=== PATIENT | female | born 1950 | race Caucasian/White ===

== ENCOUNTER → 2016-10-27 | Outpatient (CLI) | payer MEDICARE, OTHER ==
[~2016-10-27] MED LIST: ALLEGRA 60MG TA60 MG PO; ALLEGRA PO; ALLEGRA-D 12 HO1 TER PO; AMOXICILLIN/CLA1 TA1 PO; B-12 500 MCG PO; BENADRYL 50MG C50 MG PO; BENADRYL25 M2 PO; CALCIUM 600600 MG PO; CALCIUM PO; CALTRATE-600 W600 MG PO; CIPRO 100MG TA100 MG PO; CIPRO 500MG TA500 MG PO; CLEOCIN HCL300 MG PO; CLINORIL 1150 MG/TAB PO; COLESTID5 GM/PACKE PO; CYMBALTA; CYMBALTA 30MG30 MG PO; DILAUDID 2MG TAB2 MG PO; FERRIMIN 150150 M1 PO; FLAGYL500 MG PO; FOLIC ACID800 MCG PO; GAS RELIEF EXT125 MG PO; GAS RELIEF PO; IMODIUM 2MG CAPS2 MG PO; IRON CHELATED325 MG PO; IRON325 MG PO; LEVAQUIN 5500 MG/TA1 PO; LOMOTIL 0.025 M1 TAB PO; LORTAB 5/500 501 TAB PO; LOVENOX 100100 MG/ML SQ; LOVENOX 6060 MG/0.6 SQ; LUTEIN20 M1 PO; LUTEIN20 MG; LUTEIN20 MG PO; MORP4 IL; MORPHINE; MORPHINE PUMP; MULTI VITAMINS1 TAB PO; NORCO 325 MG-101 TAB PO; NORCO 325 MG-51 TAB PO; OPIUM 10 MG/ML; OPIUM 10 MG/ML PO; OSCAL 500 TAB500 MG PO; PHILLIPS1 TAB PO; PROBIOTIC FORMU1 CAP PO; PROBIOTIC-MAJOR PO; PROTONIX 40MG T40 MG PO; QUESTRAN4 GM/9 GM PO; REGLAN 10MG10 MG/TAB PO; REGLAN 5MG T5 MG/TAB PO; TAMOXIFEN CITRA20 MG PO; TPN IV; VICODIN 5/5001 UDTAB PO; VITAMINC1000TA PO; XARELTO15 MG PO; XELODA500 MG PO; XYZAL5 MG PO; ZANTAC 150MG T150 MG PO; ZOFRAN 4MG T4 MG/TAB PO; ZOFRAN INJ4 MG/2 ML IV; ZYRTEC 10MG10 MG PO; ZYRTEC ALLERGY10 MG PO; [UNRECOGNIZED DRUG - SUPPLY]; calcium PO
[2016-10-27 20:59] LABS: MEAN CELL VOLUME 88 fl (80.0-100.0); MEAN CORPUSCULAR HGB CONC 30 g/dl (33.0-37.0); MEAN PLATELET VOLUME 10.3 fl (7.4-10.4); PLATELET COUNT 707 K/mm3 (130-400); RED BLOOD COUNT 3.22 M/mm3 (4.10-5.30); REDCELL DISTRIBUTION WIDTH-CV 17.6 % (11.5-14.5); WHITE BLOOD COUNT 8.4 K/mm3 (4.8-10.8)
[2016-10-27 21:04] LABS: HEMATOCRIT 28.2 % (37.0-47.0); HEMOGLOBIN 8.5 g/dl (12.5-16.0); MEAN CORPUSCULAR HEMOGLOBIN 26 pg (27.0-31.0)
[2016-10-27 21:07] LABS: ADJUSTED CALCIUM 9.4 mg/dL (8.4-10.2); ALBUMIN 2.6 gm/dL (3.5-5.0); BILIRUBIN,TOTAL 0.4 mg/dL (0.0-1.0); CALCIUM 8.3 mg/dL (8.4-10.2); CREATININE, serum 0.45 mg/dL (0.52-1.25); POTASSIUM 4.4 mmol/L (3.4-5.0); TOTAL PROTEIN 6.2 gm/dL (6.4-8.2)
[2016-10-27 21:47] LABS: MAGNESIUM 1.9 mg/dL (1.6-2.3)
== END ==
LOC: ZCOL.LAB 19:16
PROVIDERS: Surgery Surgical Oncology
DX: C78.6 Secondary malignant neoplasm of retroperitoneum and peritoneum (principal); K91.2 Postsurgical malabsorption, not elsewhere classified; Z51.81 Encounter for therapeutic drug level monitoring; Z79.01 Long term (current) use of anticoagulants; Z91.81 History of falling

== ENCOUNTER → 2016-10-30 | Outpatient (REF) | LOC: ZAIV 10-23 06:20 | DX: Z02.89 Encounter for other administrative examinations (principal) ==

== ENCOUNTER 2016-11-01 12:10 | Inpatient (IN) | payer MEDICARE, OTHER ==
[~2016-11-01] VITALS: Ht 167.6 cm; Wt 64.0 kg
[~2016-11-01 12:10] MED LIST changes: -CIPRO 500MG TA500 MG PO; -MORP4 IL; -OSCAL 500 TAB500 MG PO
[2016-11-01] MEDS ORDERED: IMODIUM 2MG CAPS2 MG PO (12:36)
[2016-11-01 12:49] LABS: BASO # 0.1 (0.0-0.2); BASO % 0.8 % (0.0-2.0); EOS # 0.1 (0.0-0.7); EOS % 1.2 % (0-4.0); GRAN # 5.5 (1.4-6.5); GRAN % 61.6 % (42.2-75.2); HEMATOCRIT 28.9 % (37.0-47.0); HEMOGLOBIN 9.1 g/dl (12.5-16.0); LYMPH # 2.2 (1.2-3.4); LYMPH % 25.1 % (20.0-51.0); MEAN CELL VOLUME 84 fl (80.0-100.0); MEAN CORPUSCULAR HEMOGLOBIN 26 pg (27.0-31.0); MEAN CORPUSCULAR HGB CONC 32 g/dl (33.0-37.0); MEAN PLATELET VOLUME 9.5 fl (7.4-10.4); MONO % 11.2 % (1.7-9.3); PLATELET COUNT 878 K/mm3 (130-400); RED BLOOD COUNT 3.44 M/mm3 (4.10-5.30); REDCELL DISTRIBUTION WIDTH-CV 17.8 % (11.5-14.5); WHITE BLOOD COUNT 8.9 K/mm3 (4.8-10.8)
[2016-11-01 12:55] LABS: ADJUSTED CALCIUM 9.3 mg/dL (8.4-10.2); ALBUMIN 3.3 gm/dL (3.5-5.0); BILIRUBIN,TOTAL 0.4 mg/dL (0.0-1.0); C-REACTIVE PROTEIN 4.2 mg/dL (0.0-0.9); CALCIUM 8.7 mg/dL (8.4-10.2); CREATININE, serum 0.47 mg/dL (0.52-1.25); POTASSIUM 3.8 mmol/L (3.4-5.0); TOTAL PROTEIN 7.3 gm/dL (6.4-8.2)
[2016-11-01 15:21] VITALS: BP 101/46; PULSE 114; TEMP 98.9
[2016-11-01 16:18] VITALS: BP 120/51; PULSE 75; TEMP 97.9
[2016-11-01 19:11] VITALS: BP 124/55; PULSE 825; TEMP 98.5
[2016-11-01 22:56] VITALS: BP 124/60; PULSE 87; TEMP 98.8
[2016-11-02 04:22] VITALS: BP 127/65; PULSE 94; TEMP 98.8
[2016-11-02 06:50] LABS: BASO % 0.5 % (0.0-2.0); EOS # 0.1 (0.0-0.7); EOS % 1.9 % (0-4.0); GRAN # 3.6 (1.4-6.5); GRAN % 49.2 % (42.2-75.2); LYMPH # 2.5 (1.2-3.4); LYMPH % 33.7 % (20.0-51.0); MEAN CELL VOLUME 85 fl (80.0-100.0); MEAN CORPUSCULAR HGB CONC 31 g/dl (33.0-37.0); MEAN PLATELET VOLUME 9.5 fl (7.4-10.4); MONO # 1.1 (0.1-0.6); MONO % 14.6 % (1.7-9.3); RED BLOOD COUNT 2.98 M/mm3 (4.10-5.30); REDCELL DISTRIBUTION WIDTH-CV 17.6 % (11.5-14.5); WHITE BLOOD COUNT 7.4 K/mm3 (4.8-10.8)
[2016-11-02 07:00] LABS: HEMATOCRIT 25.4 % (37.0-47.0); HEMOGLOBIN 7.9 g/dl (12.5-16.0); MEAN CORPUSCULAR HEMOGLOBIN 27 pg (27.0-31.0)
[2016-11-02 07:01] LABS: PLATELET COUNT 766 K/mm3 (130-400)
[2016-11-02 07:04] LABS: ADJUSTED CALCIUM 8.9 mg/dL (8.4-10.2); ALBUMIN 2.4 gm/dL (3.5-5.0); BILIRUBIN,TOTAL 0.4 mg/dL (0.0-1.0); CALCIUM 7.6 mg/dL (8.4-10.2); CREATININE, serum 0.44 mg/dL (0.52-1.25); POTASSIUM 3.5 mmol/L (3.4-5.0); TOTAL PROTEIN 5.9 gm/dL (6.4-8.2)
[2016-11-02 07:41] VITALS: BP 122/57; PULSE 97; TEMP 99
[2016-11-02] MEDS ORDERED: MORP4 IL (11:59)
[2016-11-02 12:13] VITALS: BP 124/56; PULSE 79; TEMP 98.6
[2016-11-02 17:23] VITALS: BP 129/59; PULSE 73; TEMP 98.6
[2016-11-02 19:43] VITALS: BP 127/64; PULSE 50; TEMP 98.2
[2016-11-02 23:11] VITALS: BP 129/50; PULSE 78; TEMP 98.7
[2016-11-03 02:25] VITALS: BP 132/47; PULSE 81; TEMP 100.4
[2016-11-03 07:11] LABS: BASO % 0.5 % (0.0-2.0); EOS # 0.2 (0.0-0.7); EOS % 2.4 % (0-4.0); GRAN # 3.5 (1.4-6.5); GRAN % 47.2 % (42.2-75.2); LYMPH # 2.6 (1.2-3.4); LYMPH % 34.5 % (20.0-51.0); MEAN CELL VOLUME 84 fl (80.0-100.0); MEAN CORPUSCULAR HGB CONC 31 g/dl (33.0-37.0); MEAN PLATELET VOLUME 9.8 fl (7.4-10.4); MONO # 1.1 (0.1-0.6); MONO % 15.1 % (1.7-9.3); PLATELET COUNT 796 K/mm3 (130-400); RED BLOOD COUNT 3.21 M/mm3 (4.10-5.30); REDCELL DISTRIBUTION WIDTH-CV 17.7 % (11.5-14.5); WHITE BLOOD COUNT 7.5 K/mm3 (4.8-10.8)
[2016-11-03 07:19] LABS: HEMOGLOBIN 8.4 g/dl (12.5-16.0); MEAN CORPUSCULAR HEMOGLOBIN 26 pg (27.0-31.0)
[2016-11-03 07:26] LABS: ADJUSTED CALCIUM 9.2 mg/dL (8.4-10.2); ALBUMIN 2.8 gm/dL (3.5-5.0); BILIRUBIN,TOTAL 0.4 mg/dL (0.0-1.0); CALCIUM 8.2 mg/dL (8.4-10.2); CREATININE, serum 0.41 mg/dL (0.52-1.25); POTASSIUM 4.1 mmol/L (3.4-5.0); TOTAL PROTEIN 6.5 gm/dL (6.4-8.2)
[2016-11-03 07:45] VITALS: BP 122/52; PULSE 79; TEMP 98.6
[2016-11-03 12:00] VITALS: BP 131/60; PULSE 71; TEMP 98.3
[2016-11-03 15:55] VITALS: BP 135/66; PULSE 60; TEMP 97.9
[2016-11-03 19:20] VITALS: BP 129/57; PULSE 73; TEMP 98.4
[2016-11-03 23:34] VITALS: BP 147/72; PULSE 82; TEMP 98.2
[2016-11-04 03:27] VITALS: BP 156/70; PULSE 97; TEMP 98.1
[2016-11-04 07:14] LABS: BASO # 0.1 (0.0-0.2); BASO % 0.6 % (0.0-2.0); EOS # 0.3 (0.0-0.7); GRAN # 5.7 (1.4-6.5); LYMPH # 2.7 (1.2-3.4); MEAN CELL VOLUME 85 fl (80.0-100.0); MEAN CORPUSCULAR HGB CONC 32 g/dl (33.0-37.0); MEAN PLATELET VOLUME 9.9 fl (7.4-10.4); MONO # 1.1 (0.1-0.6); PLATELET COUNT 752 K/mm3 (130-400); RED BLOOD COUNT 3.22 M/mm3 (4.10-5.30); REDCELL DISTRIBUTION WIDTH-CV 18.1 % (11.5-14.5); WHITE BLOOD COUNT 9.9 K/mm3 (4.8-10.8)
[2016-11-04 07:15] LABS: HEMATOCRIT 27.3 % (37.0-47.0); HEMOGLOBIN 8.7 g/dl (12.5-16.0); MEAN CORPUSCULAR HEMOGLOBIN 27 pg (27.0-31.0)
[2016-11-04 07:27] LABS: ADJUSTED CALCIUM 9.2 mg/dL (8.4-10.2); ALBUMIN 2.8 gm/dL (3.5-5.0); BILIRUBIN,TOTAL 0.4 mg/dL (0.0-1.0); CALCIUM 8.2 mg/dL (8.4-10.2); CREATININE, serum 0.67 mg/dL (0.52-1.25); MAGNESIUM 2.6 mg/dL (1.6-2.3); POTASSIUM 4.5 mmol/L (3.4-5.0); TOTAL PROTEIN 6.2 gm/dL (6.4-8.2)
[2016-11-04 09:09] VITALS: BP 137/65; PULSE 81; TEMP 98.2
[2016-11-04 09:45] LABS: ADJUSTED CALCIUM 9.3 mg/dL (8.4-10.2); ALBUMIN 3.2 gm/dL (3.5-5.0); BILIRUBIN,TOTAL 0.4 mg/dL (0.0-1.0); CALCIUM 8.7 mg/dL (8.4-10.2); CREATININE, serum 0.43 mg/dL (0.52-1.25); POTASSIUM 4.4 mmol/L (3.4-5.0); TOTAL PROTEIN 7.5 gm/dL (6.4-8.2)
[2016-11-04 11:41] LABS: PHOSPHOROUS 2.6 mg/dL (2.5-4.5)
[2016-11-04 12:03] LABS: MAGNESIUM 2.1 mg/dL (1.6-2.3)
[2016-11-04 12:37] VITALS: BP 144/66; PULSE 79; TEMP 97.5
[2016-11-04 15:57] VITALS: BP 128/70; PULSE 81; TEMP 97.9
[2016-11-04 20:11] VITALS: BP 144/62; PULSE 75; TEMP 97.8
[2016-11-05] VITALS (7 sets, daily range): BP systolic 120–132; BP diastolic 47–67; PULSE 68–96; TEMP 97.3–98.3
[2016-11-05 09:11] LABS: BASO % 0.4 % (0.0-2.0); EOS # 0.2 (0.0-0.7); EOS % 2.5 % (0-4.0); GRAN # 3.7 (1.4-6.5); GRAN % 48.7 % (42.2-75.2); LYMPH # 2.7 (1.2-3.4); LYMPH % 35.4 % (20.0-51.0); MEAN CELL VOLUME 85 fl (80.0-100.0); MEAN CORPUSCULAR HGB CONC 31 g/dl (33.0-37.0); MEAN PLATELET VOLUME 9.4 fl (7.4-10.4); MONO % 12.9 % (1.7-9.3); PLATELET COUNT 797 K/mm3 (130-400); RED BLOOD COUNT 3.54 M/mm3 (4.10-5.30); REDCELL DISTRIBUTION WIDTH-CV 18.1 % (11.5-14.5); WHITE BLOOD COUNT 7.6 K/mm3 (4.8-10.8)
[2016-11-05 09:15] LABS: HEMOGLOBIN 9.3 g/dl (12.5-16.0); MEAN CORPUSCULAR HEMOGLOBIN 26 pg (27.0-31.0)
[2016-11-05 10:03] LABS: CALCIUM 8.6 mg/dL (8.4-10.2); CREATININE, serum 0.52 mg/dL (0.52-1.25); PHOSPHOROUS 4.1 mg/dL (2.5-4.5)
[2016-11-06 03:35] VITALS: BP 135/56; PULSE 93; TEMP 98.6
[2016-11-06 08:00] LABS: CALCIUM 8.6 mg/dL (8.4-10.2); CREATININE, serum 0.45 mg/dL (0.52-1.25); POTASSIUM 3.9 mmol/L (3.4-5.0)
[2016-11-06 11:21] VITALS: BP 134/79; PULSE 80; TEMP 98
[2016-11-06 17:07] VITALS: BP 131/66; PULSE 80; TEMP 98.2
[2016-11-06 20:55] VITALS: BP 131/59; PULSE 79; TEMP 97.4
[2016-11-06 23:34] VITALS: BP 126/53; BP 1326/53; PULSE 79; TEMP 97.8
[2016-11-07 03:23] VITALS: BP 122/41; PULSE 81; TEMP 98.9
[2016-11-07 07:49] LABS: MEAN CELL VOLUME 85 fl (80.0-100.0); MEAN CORPUSCULAR HGB CONC 31 g/dl (33.0-37.0); MEAN PLATELET VOLUME 9.8 fl (7.4-10.4); RED BLOOD COUNT 3.13 M/mm3 (4.10-5.30); WHITE BLOOD COUNT 10.6 K/mm3 (4.8-10.8)
[2016-11-07 07:50] LABS: HEMATOCRIT 26.7 % (37.0-47.0); HEMOGLOBIN 8.2 g/dl (12.5-16.0); MEAN CORPUSCULAR HEMOGLOBIN 26 pg (27.0-31.0); PLATELET COUNT 686 K/mm3 (130-400)
[2016-11-07 08:13] LABS: CALCIUM 8.5 mg/dL (8.4-10.2); CREATININE, serum 0.5 mg/dL (0.52-1.25); MAGNESIUM 2.1 mg/dL (1.6-2.3); POTASSIUM 3.8 mmol/L (3.4-5.0)
[2016-11-07 08:15] VITALS: BP 134/68; PULSE 90; TEMP 98.5
[2016-11-07 12:00] VITALS: BP 126/59; PULSE 73; TEMP 96.9
[2016-11-07 16:46] VITALS: BP 129/55; PULSE 72; TEMP 97.9
[2016-11-07 21:11] VITALS: BP 149/66; PULSE 76; TEMP 98.4
[2016-11-08 00:21] VITALS: BP 143/58; PULSE 98; TEMP 98.4
[2016-11-08 05:08] VITALS: BP 117/44; PULSE 82; TEMP 98.7
[2016-11-08 06:56] LABS: CREATININE, serum 0.49 mg/dL (0.52-1.25); MAGNESIUM 1.9 mg/dL (1.6-2.3); PHOSPHOROUS 2.9 mg/dL (2.5-4.5); POTASSIUM 3.4 mmol/L (3.4-5.0)
[2016-11-08 08:56] VITALS: BP 128/66; PULSE 84; TEMP 98.6
[2016-11-08 12:26] VITALS: BP 117/66; PULSE 88; TEMP 98
== END 2016-11-08 14:00 | disposition home health service (06) | DRG 389 ==
LOC: COL.ER 12:10 → MEDICAL 14:11
PROVIDERS: Emergency Medicine; Internal Medicine
PROC: 0D9 Gastrointestinal System, Drainage (ICD-10-PCS; principal; 2016-11-01)
DX: K56.7 Ileus, unspecified (principal); E44.0 Moderate protein-calorie malnutrition; K91.2 Postsurgical malabsorption, not elsewhere classified; C78.6 Secondary malignant neoplasm of retroperitoneum and peritoneum; F11.20 Opioid dependence, uncomplicated; T47.6X5A Adverse effect of antidiarrheal drugs, initial encounter; K31.84 Gastroparesis; G89.29 Other chronic pain; I27.2 Other secondary pulmonary hypertension
CPT/HCPCS: 99232-AI; 99233-AI; 99239; B4178; C9113; J0610; J1170; J1644; J1885; J2405; J2550; J2765; J3411; J3475; J3480; J7030; J7131; Q9967

== ENCOUNTER → 2016-11-10 | Outpatient (CLI) | payer MEDICARE, OTHER ==
[~2016-11-10] MED LIST changes: +CIPRO 500MG TA500 MG PO; +MORP4 IL; +OSCAL 500 TAB500 MG PO
[2016-11-10 18:26] LABS: MEAN CELL VOLUME 85 fl (80.0-100.0); MEAN CORPUSCULAR HGB CONC 31 g/dl (33.0-37.0); PLATELET COUNT 781 K/mm3 (130-400); RED BLOOD COUNT 3.68 M/mm3 (4.10-5.30); REDCELL DISTRIBUTION WIDTH-CV 18.4 % (11.5-14.5); WHITE BLOOD COUNT 8.6 K/mm3 (4.8-10.8)
[2016-11-10 18:33] LABS: ADJUSTED CALCIUM 9.5 mg/dL (8.4-10.2); ALBUMIN 3.4 gm/dL (3.5-5.0); BILIRUBIN,TOTAL 0.3 mg/dL (0.0-1.0); CREATININE, serum 0.5 mg/dL (0.52-1.25); TOTAL PROTEIN 7.2 gm/dL (6.4-8.2)
[2016-11-10 18:41] LABS: HEMATOCRIT 31.2 % (37.0-47.0); HEMOGLOBIN 9.6 g/dl (12.5-16.0); MEAN CORPUSCULAR HEMOGLOBIN 26 pg (27.0-31.0)
[2016-11-10 18:51] LABS: MAGNESIUM 2.3 mg/dL (1.6-2.3); PHOSPHOROUS 4.7 mg/dL (2.5-4.5)
== END ==
LOC: ZCOL.LAB 18:17
PROVIDERS: Surgery Surgical Oncology
DX: C78.6 Secondary malignant neoplasm of retroperitoneum and peritoneum (principal); K91.2 Postsurgical malabsorption, not elsewhere classified; E46 Unspecified protein-calorie malnutrition

== ENCOUNTER → 2016-11-17 | Outpatient (CLI) | payer MEDICARE, OTHER ==
[2016-11-17 15:02] LABS: ADJUSTED CALCIUM 9.2 mg/dL (8.4-10.2); ALBUMIN 2.7 gm/dL (3.5-5.0); BILIRUBIN,TOTAL 0.2 mg/dL (0.0-1.0); CALCIUM 8.2 mg/dL (8.4-10.2); CREATININE, serum 0.43 mg/dL (0.52-1.25); POTASSIUM 4.3 mmol/L (3.4-5.0); TOTAL PROTEIN 6.1 gm/dL (6.4-8.2)
[2016-11-17 15:11] LABS: HEMATOCRIT 28.8 % (37.0-47.0); HEMOGLOBIN 8.8 g/dl (12.5-16.0); MEAN CELL VOLUME 84 fl (80.0-100.0); MEAN CORPUSCULAR HEMOGLOBIN 26 pg (27.0-31.0); MEAN CORPUSCULAR HGB CONC 31 g/dl (33.0-37.0); MEAN PLATELET VOLUME 9.7 fl (7.4-10.4); PLATELET COUNT 723 K/mm3 (130-400); RED BLOOD COUNT 3.44 M/mm3 (4.10-5.30); REDCELL DISTRIBUTION WIDTH-CV 18.6 % (11.5-14.5); WHITE BLOOD COUNT 7.7 K/mm3 (4.8-10.8)
[2016-11-17 15:17] LABS: MAGNESIUM 1.9 mg/dL (1.6-2.3); PHOSPHOROUS 3.1 mg/dL (2.5-4.5)
== END ==
LOC: ZCOL.LAB 14:28
PROVIDERS: Surgery Surgical Oncology
DX: C78.6 Secondary malignant neoplasm of retroperitoneum and peritoneum (principal); K91.2 Postsurgical malabsorption, not elsewhere classified; E46 Unspecified protein-calorie malnutrition; R19.7 Diarrhea, unspecified; Z79.891 Long term (current) use of opiate analgesic; Z79.899 Other long term (current) drug therapy; Z79.01 Long term (current) use of anticoagulants; Z91.81 History of falling

== ENCOUNTER → 2016-11-24 | Outpatient (CLI) | payer MEDICARE, OTHER ==
[2016-11-24 23:08] LABS: MEAN CELL VOLUME 86 fl (80.0-100.0); MEAN CORPUSCULAR HGB CONC 30 g/dl (33.0-37.0); MEAN PLATELET VOLUME 9.9 fl (7.4-10.4); PLATELET COUNT 738 K/mm3 (130-400); RED BLOOD COUNT 2.41 M/mm3 (4.10-5.30); REDCELL DISTRIBUTION WIDTH-CV 19.3 % (11.5-14.5); WHITE BLOOD COUNT 11.4 K/mm3 (4.8-10.8)
[2016-11-24 23:17] LABS: ADJUSTED CALCIUM 8.9 mg/dL (8.4-10.2); ALBUMIN 2.6 gm/dL (3.5-5.0); BILIRUBIN,TOTAL 0.4 mg/dL (0.0-1.0); CALCIUM 7.8 mg/dL (8.4-10.2); CREATININE, serum 0.4 mg/dL (0.52-1.25); MAGNESIUM 1.9 mg/dL (1.6-2.3); PHOSPHOROUS 2.9 mg/dL (2.5-4.5); POTASSIUM 3.7 mmol/L (3.4-5.0); TOTAL PROTEIN 5.9 gm/dL (6.4-8.2)
[2016-11-25 01:11] LABS: HEMATOCRIT 20.8 % (37.0-47.0); HEMOGLOBIN 6.3 g/dl (12.5-16.0); MEAN CORPUSCULAR HEMOGLOBIN 26 pg (27.0-31.0)
== END ==
LOC: ZCOL.LAB 23:01
PROVIDERS: Surgery Surgical Oncology
DX: C78.6 Secondary malignant neoplasm of retroperitoneum and peritoneum (principal); K91.2 Postsurgical malabsorption, not elsewhere classified; E46 Unspecified protein-calorie malnutrition

== ENCOUNTER 2016-11-25 11:00 | Outpatient (RCR) | payer MEDICARE, OTHER ==
[2016-10-28 14:23] VITALS: BP 119/56; PULSE 77; TEMP 98.6
[~2016-11-25] VITALS: Ht 167.6 cm; Wt 63.6 kg
[2016-11-25] VITALS (9 sets, daily range): BP systolic 131–142; BP diastolic 60–71; PULSE 70–76; TEMP 98.1–98.9
[~2016-11-25 11:00] MED LIST changes: -CIPRO 500MG TA500 MG PO; -OSCAL 500 TAB500 MG PO
[2016-11-25 18:55] LABS: HEMOGLOBIN 11.1 g/dl (12.5-16.0)
== END 2016-12-09 15:50 | disposition home or self-care (01) ==
LOC: EUO 11:00
PROVIDERS: Family Medicine
DX: Z45.2 Encounter for adjustment and management of vascular access device (principal)
CPT/HCPCS: J1644; J7050; P9016

== ENCOUNTER → 2016-12-01 | Outpatient (CLI) | payer MEDICARE, OTHER ==
[~2016-12-01] MED LIST changes: +CIPRO 500MG TA500 MG PO; +OSCAL 500 TAB500 MG PO
[2016-12-01 19:43] LABS: MEAN CELL VOLUME 84 fl (80.0-100.0); MEAN CORPUSCULAR HGB CONC 32 g/dl (33.0-37.0); MEAN PLATELET VOLUME 9.7 fl (7.4-10.4); PLATELET COUNT 689 K/mm3 (130-400); RED BLOOD COUNT 3.88 M/mm3 (4.10-5.30); REDCELL DISTRIBUTION WIDTH-CV 20.8 % (11.5-14.5)
[2016-12-01 19:45] LABS: HEMATOCRIT 32.4 % (37.0-47.0); HEMOGLOBIN 10.4 g/dl (12.5-16.0); MEAN CORPUSCULAR HEMOGLOBIN 27 pg (27.0-31.0)
[2016-12-01 20:03] LABS: BILIRUBIN,TOTAL 0.4 mg/dL (0.0-1.0); CALCIUM 8.1 mg/dL (8.4-10.2); CREATININE, serum 0.48 mg/dL (0.52-1.25); PHOSPHOROUS 3.6 mg/dL (2.5-4.5); POTASSIUM 4.7 mmol/L (3.4-5.0); TOTAL PROTEIN 6.2 gm/dL (6.4-8.2)
[2016-12-01 20:33] LABS: ADJUSTED CALCIUM 9.1 mg/dL (8.4-10.2); ALBUMIN 2.8 gm/dL (3.5-5.0)
== END ==
LOC: ZCOL.LAB 14:21
PROVIDERS: Surgery Surgical Oncology
DX: Z01.89 Encounter for other specified special examinations (principal)

== ENCOUNTER → 2016-12-08 | Outpatient (CLI) | payer MEDICARE, OTHER ==
[2016-12-08 21:21] LABS: HEMATOCRIT 36.3 % (37.0-47.0); HEMOGLOBIN 11.7 g/dl (12.5-16.0); MEAN CELL VOLUME 83 fl (80.0-100.0); MEAN CORPUSCULAR HEMOGLOBIN 27 pg (27.0-31.0); MEAN CORPUSCULAR HGB CONC 32 g/dl (33.0-37.0); MEAN PLATELET VOLUME 9.8 fl (7.4-10.4); PLATELET COUNT 720 K/mm3 (130-400); RED BLOOD COUNT 4.37 M/mm3 (4.10-5.30); REDCELL DISTRIBUTION WIDTH-CV 21.7 % (11.5-14.5)
[2016-12-08 21:31] LABS: ADJUSTED CALCIUM 9.8 mg/dL (8.4-10.2); BILIRUBIN,TOTAL 0.5 mg/dL (0.0-1.0); CREATININE, serum 0.52 mg/dL (0.52-1.25); PHOSPHOROUS 4.6 mg/dL (2.5-4.5); POTASSIUM 4.6 mmol/L (3.4-5.0); TOTAL PROTEIN 6.9 gm/dL (6.4-8.2)
== END ==
LOC: ZCOL.LAB 20:55
PROVIDERS: Surgery Surgical Oncology
DX: K91.2 Postsurgical malabsorption, not elsewhere classified (principal); C78.89 Secondary malignant neoplasm of other digestive organs; E46 Unspecified protein-calorie malnutrition

== ENCOUNTER 2016-12-12 18:55 | Inpatient (IN) | payer MEDICARE, OTHER ==
[~2016-12-12] VITALS: Ht 167.6 cm; Wt 61.0 kg
[~2016-12-12 18:55] MED LIST changes: -CIPRO 500MG TA500 MG PO; -OSCAL 500 TAB500 MG PO
[2016-12-12 19:09] VITALS: BP 124/66; PULSE 89; TEMP 98
[2016-12-12] MEDS ORDERED: CIPRO 500MG TA500 MG PO (19:22)
[2016-12-12 20:05] LABS: BASO % 0.5 % (0.0-2.0); EOS % 0.4 % (0-4.0); GRAN # 4.4 (1.4-6.5); GRAN % 54.3 % (42.2-75.2); LYMPH # 2.6 (1.2-3.4); LYMPH % 31.9 % (20.0-51.0); MEAN CELL VOLUME 81 fl (80.0-100.0); MEAN CORPUSCULAR HGB CONC 32 g/dl (33.0-37.0); MEAN PLATELET VOLUME 8.9 fl (7.4-10.4); MONO % 12.8 % (1.7-9.3); PLATELET COUNT 729 K/mm3 (130-400); RED BLOOD COUNT 4.34 M/mm3 (4.10-5.30); REDCELL DISTRIBUTION WIDTH-CV 21.6 % (11.5-14.5); WHITE BLOOD COUNT 8.1 K/mm3 (4.8-10.8)
[2016-12-12 20:06] LABS: HEMATOCRIT 35.3 % (37.0-47.0); HEMOGLOBIN 11.4 g/dl (12.5-16.0); MEAN CORPUSCULAR HEMOGLOBIN 26 pg (27.0-31.0)
[2016-12-12 20:20] LABS: ADJUSTED CALCIUM 9.6 mg/dL (8.4-10.2); ALBUMIN 3.6 gm/dL (3.5-5.0); BILIRUBIN,TOTAL 0.6 mg/dL (0.0-1.0); CALCIUM 9.3 mg/dL (8.4-10.2); CREATININE, serum 0.5 mg/dL (0.52-1.25); POTASSIUM 3.8 mmol/L (3.4-5.0); TOTAL PROTEIN 7.9 gm/dL (6.4-8.2)
[2016-12-12 21:31] LABS: PH 6 (5-8); SQUAMOUS EPITHELIAL 0-2 /hpf; URINE APPEARANCE Clear; URINE BACTERIA Rare /hpf; URINE BILIRUBIN Negative (NEGATIVE); URINE BLOOD Negative (NEGATIVE); URINE COLOR Yellow; URINE GLUCOSE Negative (NEGATIVE); URINE KETONE Negative (NEGATIVE); URINE RBC 0-2 /hpf; URINE UROBILINOGEN Negative (NEGATIVE); URINE WBC 0-2 /hpf
[2016-12-13 00:26] VITALS: BP 122/60; PULSE 88; TEMP 98
[2016-12-13 04:01] VITALS: BP 102/47; PULSE 79; TEMP 98.3
[2016-12-13 09:28] VITALS: BP 117/52; PULSE 76; TEMP 98.2
[2016-12-13 13:44] VITALS: BP 111/50; PULSE 71; TEMP 98.2
[2016-12-13 17:36] VITALS: BP 123/55; PULSE 74; TEMP 97.7
[2016-12-13 21:34] VITALS: BP 123/54; PULSE 72; TEMP 98.8
[2016-12-14 00:09] VITALS: BP 119/46; PULSE 83; TEMP 99
[2016-12-14 06:03] VITALS: BP 120/52; PULSE 88; TEMP 98.5
[2016-12-14 07:56] LABS: MEAN CELL VOLUME 83 fl (80.0-100.0); MEAN CORPUSCULAR HGB CONC 33 g/dl (33.0-37.0); MEAN PLATELET VOLUME 9.2 fl (7.4-10.4); RED BLOOD COUNT 3.73 M/mm3 (4.10-5.30); REDCELL DISTRIBUTION WIDTH-CV 21.4 % (11.5-14.5); WHITE BLOOD COUNT 7.9 K/mm3 (4.8-10.8)
[2016-12-14 07:58] LABS: HEMATOCRIT 30.8 % (37.0-47.0); MEAN CORPUSCULAR HEMOGLOBIN 27 pg (27.0-31.0); PLATELET COUNT 582 K/mm3 (130-400)
[2016-12-14 08:16] LABS: CALCIUM 7.9 mg/dL (8.4-10.2); CREATININE, serum 0.43 mg/dL (0.52-1.25); POTASSIUM 3.2 mmol/L (3.4-5.0)
[2016-12-14 10:03] VITALS: BP 111/54; PULSE 85; TEMP 97.4
[2016-12-14 13:35] VITALS: BP 122/56; PULSE 71; TEMP 98.5
[2016-12-14 17:25] VITALS: BP 107/59; PULSE 81; TEMP 98.6
[2016-12-14 21:58] VITALS: BP 117/55; PULSE 66; TEMP 98.5
[2016-12-15 05:47] VITALS: BP 107/46; PULSE 75; TEMP 98.8
[2016-12-15 09:43] VITALS: BP 117/55; PULSE 73; TEMP 98.2
[2016-12-15 10:19] LABS: CREATININE, serum 0.48 mg/dL (0.52-1.25); POTASSIUM 3.1 mmol/L (3.4-5.0)
[2016-12-15 13:24] VITALS: BP 128/63; PULSE 94; TEMP 98.2
== END 2016-12-15 14:55 | disposition home health service (06) | DRG 389 ==
LOC: SURG 18:55
PROVIDERS: Internal Medicine; Nurse Practitioner Family; Physician Assistant
DX: K56.0 Paralytic ileus (principal); E46 Unspecified protein-calorie malnutrition; K91.2 Postsurgical malabsorption, not elsewhere classified; C78.6 Secondary malignant neoplasm of retroperitoneum and peritoneum; I50.32 Chronic diastolic (congestive) heart failure; G89.29 Other chronic pain; M54.9 Dorsalgia, unspecified; I27.2 Other secondary pulmonary hypertension; E87.6 Hypokalemia
CPT/HCPCS: 99223-AI; 99232-AI; 99239; B4178; C9113; J0610; J0744; J1644; J2405; J2765; J3475; J3480; J7030; J7042; J7131; Q9967

== ENCOUNTER → 2016-12-12 | Outpatient (CLI) | payer MEDICARE, OTHER | LOC: COL.RAD 17:29 | DX: Z02.89 Encounter for other administrative examinations (principal) | CPT/HCPCS: Q9967 ==

== ENCOUNTER → 2016-12-17 | Outpatient (CLI) | payer MEDICARE, OTHER ==
[~2016-12-17] MED LIST changes: +CIPRO 500MG TA500 MG PO; +OSCAL 500 TAB500 MG PO
[2016-12-17 13:41] LABS: MEAN CELL VOLUME 84 fl (80.0-100.0); MEAN CORPUSCULAR HGB CONC 32 g/dl (33.0-37.0); MEAN PLATELET VOLUME 9.6 fl (7.4-10.4); PLATELET COUNT 682 K/mm3 (130-400); RED BLOOD COUNT 4.19 M/mm3 (4.10-5.30); REDCELL DISTRIBUTION WIDTH-CV 22.3 % (11.5-14.5); WHITE BLOOD COUNT 8.1 K/mm3 (4.8-10.8)
[2016-12-17 13:45] LABS: HEMATOCRIT 35.2 % (37.0-47.0); HEMOGLOBIN 11.1 g/dl (12.5-16.0); MEAN CORPUSCULAR HEMOGLOBIN 26 pg (27.0-31.0)
[2016-12-17 14:18] LABS: ADJUSTED CALCIUM 9.2 mg/dL (8.4-10.2); ALBUMIN 2.9 gm/dL (3.5-5.0); BILIRUBIN,TOTAL 0.6 mg/dL (0.0-1.0); CALCIUM 8.3 mg/dL (8.4-10.2); CREATININE, serum 0.53 mg/dL (0.52-1.25); MAGNESIUM 2.2 mg/dL (1.6-2.3); PHOSPHOROUS 2.6 mg/dL (2.5-4.5); POTASSIUM 4.1 mmol/L (3.4-5.0); TOTAL PROTEIN 6.5 gm/dL (6.4-8.2)
== END ==
LOC: ZCOL.LAB 13:03
PROVIDERS: Surgery Surgical Oncology
DX: K91.2 Postsurgical malabsorption, not elsewhere classified (principal); K90.89 Other intestinal malabsorption

== ENCOUNTER → 2016-12-22 | Outpatient (CLI) | payer MEDICARE, OTHER ==
[2016-12-22 13:48] LABS: MEAN CELL VOLUME 83 fl (80.0-100.0); MEAN CORPUSCULAR HGB CONC 32 g/dl (33.0-37.0); MEAN PLATELET VOLUME 9.6 fl (7.4-10.4); PLATELET COUNT 641 K/mm3 (130-400); RED BLOOD COUNT 3.79 M/mm3 (4.10-5.30); REDCELL DISTRIBUTION WIDTH-CV 22.2 % (11.5-14.5); WHITE BLOOD COUNT 9.5 K/mm3 (4.8-10.8)
[2016-12-22 13:54] LABS: HEMATOCRIT 31.4 % (37.0-47.0); MEAN CORPUSCULAR HEMOGLOBIN 26 pg (27.0-31.0)
[2016-12-22 14:13] LABS: ADJUSTED CALCIUM 9.2 mg/dL (8.4-10.2); ALBUMIN 2.8 gm/dL (3.5-5.0); BILIRUBIN,TOTAL 0.4 mg/dL (0.0-1.0); CALCIUM 8.2 mg/dL (8.4-10.2); CREATININE, serum 0.45 mg/dL (0.52-1.25); POTASSIUM 4.1 mmol/L (3.4-5.0); TOTAL PROTEIN 6.2 gm/dL (6.4-8.2)
[2016-12-22 14:45] LABS: MAGNESIUM 2.1 mg/dL (1.6-2.3); PHOSPHOROUS 3.2 mg/dL (2.5-4.5)
== END ==
LOC: ZCOL.LAB 13:05
PROVIDERS: Surgery Surgical Oncology
DX: K91.2 Postsurgical malabsorption, not elsewhere classified (principal); K90.89 Other intestinal malabsorption; E46 Unspecified protein-calorie malnutrition

== ENCOUNTER → 2016-12-29 | Outpatient (CLI) | payer MEDICARE, OTHER ==
[2016-12-29 14:06] LABS: MEAN CELL VOLUME 83 fl (80.0-100.0); MEAN CORPUSCULAR HGB CONC 32 g/dl (33.0-37.0); MEAN PLATELET VOLUME 9.7 fl (7.4-10.4); PLATELET COUNT 748 K/mm3 (130-400); RED BLOOD COUNT 3.68 M/mm3 (4.10-5.30); REDCELL DISTRIBUTION WIDTH-CV 23.3 % (11.5-14.5); WHITE BLOOD COUNT 6.9 K/mm3 (4.8-10.8)
[2016-12-29 14:08] LABS: HEMATOCRIT 30.5 % (37.0-47.0); HEMOGLOBIN 9.8 g/dl (12.5-16.0); MEAN CORPUSCULAR HEMOGLOBIN 27 pg (27.0-31.0)
[2016-12-29 14:10] LABS: ADJUSTED CALCIUM 9.5 mg/dL (8.4-10.2); ALBUMIN 2.7 gm/dL (3.5-5.0); BILIRUBIN,TOTAL 0.3 mg/dL (0.0-1.0); CALCIUM 8.5 mg/dL (8.4-10.2); CREATININE, serum 0.47 mg/dL (0.52-1.25); TOTAL PROTEIN 5.9 gm/dL (6.4-8.2)
[2016-12-29 14:13] LABS: PHOSPHOROUS 3.5 mg/dL (2.5-4.5)
== END ==
LOC: ZCOL.LAB 13:50
PROVIDERS: Family Medicine
DX: K91.2 Postsurgical malabsorption, not elsewhere classified (principal); K90.89 Other intestinal malabsorption; E46 Unspecified protein-calorie malnutrition

== ENCOUNTER → 2017-01-05 | Outpatient (CLI) | payer MEDICARE, OTHER ==
[2017-01-05 15:29] LABS: MEAN CELL VOLUME 83 fl (80.0-100.0); MEAN CORPUSCULAR HGB CONC 32 g/dl (33.0-37.0); MEAN PLATELET VOLUME 9.9 fl (7.4-10.4); PLATELET COUNT 732 K/mm3 (130-400); RED BLOOD COUNT 3.79 M/mm3 (4.10-5.30); WHITE BLOOD COUNT 6.2 K/mm3 (4.8-10.8)
[2017-01-05 15:33] LABS: HEMATOCRIT 31.3 % (37.0-47.0); MEAN CORPUSCULAR HEMOGLOBIN 26 pg (27.0-31.0)
[2017-01-05 15:55] LABS: ADJUSTED CALCIUM 9.7 mg/dL (8.4-10.2); ALBUMIN 2.6 gm/dL (3.5-5.0); BILIRUBIN,TOTAL 0.3 mg/dL (0.0-1.0); CALCIUM 8.6 mg/dL (8.4-10.2); CREATININE, serum 0.49 mg/dL (0.52-1.25); POTASSIUM 4.1 mmol/L (3.4-5.0); TOTAL PROTEIN 5.9 gm/dL (6.4-8.2)
[2017-01-05 16:46] LABS: PHOSPHOROUS 3.5 mg/dL (2.5-4.5)
== END ==
LOC: ZCOL.LAB 14:27
PROVIDERS: Surgery Surgical Oncology
DX: K91.2 Postsurgical malabsorption, not elsewhere classified (principal); K90.89 Other intestinal malabsorption; E46 Unspecified protein-calorie malnutrition

== ENCOUNTER → 2017-01-12 | Outpatient (CLI) | payer MEDICARE, OTHER ==
[2017-01-13 00:10] LABS: MEAN CELL VOLUME 86 fl (80.0-100.0); MEAN CORPUSCULAR HGB CONC 31 g/dl (33.0-37.0); MEAN PLATELET VOLUME 10.5 fl (7.4-10.4); PLATELET COUNT 712 K/mm3 (130-400); RED BLOOD COUNT 4.12 M/mm3 (4.10-5.30); REDCELL DISTRIBUTION WIDTH-CV 23.3 % (11.5-14.5)
[2017-01-13 00:13] LABS: ADJUSTED CALCIUM 9.7 mg/dL (8.4-10.2); ALBUMIN 2.7 gm/dL (3.5-5.0); BILIRUBIN,TOTAL 0.4 mg/dL (0.0-1.0); CALCIUM 8.7 mg/dL (8.4-10.2); CREATININE, serum 0.47 mg/dL (0.52-1.25); MAGNESIUM 2.1 mg/dL (1.6-2.3); PHOSPHOROUS 3.2 mg/dL (2.5-4.5); POTASSIUM 4.3 mmol/L (3.4-5.0); TOTAL PROTEIN 6.2 gm/dL (6.4-8.2)
[2017-01-13 00:28] LABS: HEMATOCRIT 35.3 % (37.0-47.0); HEMOGLOBIN 10.9 g/dl (12.5-16.0); MEAN CORPUSCULAR HEMOGLOBIN 26 pg (27.0-31.0)
== END ==
LOC: ZCOL.LAB 20:51
PROVIDERS: Surgery Surgical Oncology
DX: K91.2 Postsurgical malabsorption, not elsewhere classified (principal); E46 Unspecified protein-calorie malnutrition

== ENCOUNTER → 2017-01-12 | Outpatient (CLI) | payer MEDICARE, OTHER | LOC: ZCOL.LAB 12:36 | DX: Z53.9 Procedure and treatment not carried out, unspecified reason (principal) ==

== ENCOUNTER → 2017-01-19 | Outpatient (CLI) | payer MEDICARE, OTHER ==
[2017-01-19 19:11] LABS: MEAN CELL VOLUME 86 fl (80.0-100.0); MEAN CORPUSCULAR HGB CONC 31 g/dl (33.0-37.0); MEAN PLATELET VOLUME 10.2 fl (7.4-10.4); PLATELET COUNT 732 K/mm3 (130-400); RED BLOOD COUNT 3.92 M/mm3 (4.10-5.30); WHITE BLOOD COUNT 8.3 K/mm3 (4.8-10.8)
[2017-01-19 19:13] LABS: HEMATOCRIT 33.7 % (37.0-47.0); HEMOGLOBIN 10.3 g/dl (12.5-16.0); MEAN CORPUSCULAR HEMOGLOBIN 26 pg (27.0-31.0)
[2017-01-19 19:21] LABS: ADJUSTED CALCIUM 9.9 mg/dL (8.4-10.2); ALBUMIN 2.6 gm/dL (3.5-5.0); BILIRUBIN,TOTAL 0.4 mg/dL (0.0-1.0); CALCIUM 8.8 mg/dL (8.4-10.2); CREATININE, serum 0.46 mg/dL (0.52-1.25); MAGNESIUM 1.8 mg/dL (1.6-2.3); PHOSPHOROUS 3.7 mg/dL (2.5-4.5); POTASSIUM 3.9 mmol/L (3.4-5.0); TOTAL PROTEIN 5.9 gm/dL (6.4-8.2)
== END ==
LOC: ZCOL.LAB 13:34
PROVIDERS: Surgery Surgical Oncology
DX: E46 Unspecified protein-calorie malnutrition (principal); K91.2 Postsurgical malabsorption, not elsewhere classified

== ENCOUNTER → 2017-02-02 | Outpatient (CLI) | payer MEDICARE, OTHER ==
[2017-02-02 21:12] LABS: MEAN CELL VOLUME 84 fl (80.0-100.0); MEAN CORPUSCULAR HGB CONC 32 g/dl (33.0-37.0); MEAN PLATELET VOLUME 10.4 fl (7.4-10.4); PLATELET COUNT 762 K/mm3 (130-400); RED BLOOD COUNT 3.57 M/mm3 (4.10-5.30); REDCELL DISTRIBUTION WIDTH-CV 21.9 % (11.5-14.5); WHITE BLOOD COUNT 7.1 K/mm3 (4.8-10.8)
[2017-02-02 21:20] LABS: HEMOGLOBIN 9.6 g/dl (12.5-16.0); MEAN CORPUSCULAR HEMOGLOBIN 27 pg (27.0-31.0)
[2017-02-02 21:55] LABS: ADJUSTED CALCIUM 9.5 mg/dL (8.4-10.2); ALBUMIN 2.8 gm/dL (3.5-5.0); BILIRUBIN,TOTAL 0.4 mg/dL (0.0-1.0); CALCIUM 8.5 mg/dL (8.4-10.2); CREATININE, serum 0.47 mg/dL (0.52-1.25); MAGNESIUM 2.1 mg/dL (1.6-2.3); PHOSPHOROUS 3.4 mg/dL (2.5-4.5); POTASSIUM 3.9 mmol/L (3.4-5.0)
== END ==
LOC: ZCOL.LAB 20:36
PROVIDERS: Surgery Surgical Oncology
DX: K91.2 Postsurgical malabsorption, not elsewhere classified (principal); E46 Unspecified protein-calorie malnutrition

== ENCOUNTER → 2017-02-09 | Outpatient (CLI) | payer MEDICARE, OTHER ==
[2017-02-09 15:19] LABS: BASO # 0.1 (0.0-0.2); BASO % 0.8 % (0.0-2.0); EOS # 0.2 (0.0-0.7); EOS % 2.5 % (0-4.0); GRAN # 2.7 (1.4-6.5); GRAN % 44.9 % (42.2-75.2); LYMPH # 2.4 (1.2-3.4); LYMPH % 39.3 % (20.0-51.0); MEAN CELL VOLUME 85 fl (80.0-100.0); MEAN CORPUSCULAR HGB CONC 32 g/dl (33.0-37.0); MEAN PLATELET VOLUME 10.7 fl (7.4-10.4); MONO # 0.8 (0.1-0.6); MONO % 12.3 % (1.7-9.3); PLATELET COUNT 703 K/mm3 (130-400); RED BLOOD COUNT 3.62 M/mm3 (4.10-5.30); REDCELL DISTRIBUTION WIDTH-CV 20.6 % (11.5-14.5); WHITE BLOOD COUNT 6.1 K/mm3 (4.8-10.8)
[2017-02-09 15:22] LABS: HEMATOCRIT 30.9 % (37.0-47.0); HEMOGLOBIN 9.8 g/dl (12.5-16.0); MEAN CORPUSCULAR HEMOGLOBIN 27 pg (27.0-31.0)
[2017-02-09 15:31] LABS: ADJUSTED CALCIUM 9.3 mg/dL (8.4-10.2); ALBUMIN 2.6 gm/dL (3.5-5.0); BILIRUBIN,TOTAL 0.5 mg/dL (0.0-1.0); CALCIUM 8.2 mg/dL (8.4-10.2); CREATININE, serum 0.43 mg/dL (0.52-1.25); MAGNESIUM 2.1 mg/dL (1.6-2.3); PHOSPHOROUS 3.1 mg/dL (2.5-4.5); POTASSIUM 4.4 mmol/L (3.4-5.0); TOTAL PROTEIN 5.7 gm/dL (6.4-8.2)
== END ==
LOC: ZCOL.LAB 13:58
PROVIDERS: Family Medicine
DX: E11.9 Type 2 diabetes mellitus without complications (principal); Z02.89 Encounter for other administrative examinations

== ENCOUNTER → 2017-02-16 | Outpatient (CLI) | payer MEDICARE, OTHER ==
[2017-02-16 21:42] LABS: MEAN CELL VOLUME 87 fl (80.0-100.0); MEAN CORPUSCULAR HGB CONC 31 g/dl (33.0-37.0); MEAN PLATELET VOLUME 10.8 fl (7.4-10.4); PLATELET COUNT 609 K/mm3 (130-400); RED BLOOD COUNT 3.53 M/mm3 (4.10-5.30); WHITE BLOOD COUNT 5.6 K/mm3 (4.8-10.8)
[2017-02-16 21:46] LABS: HEMATOCRIT 30.6 % (37.0-47.0); HEMOGLOBIN 9.4 g/dl (12.5-16.0); MEAN CORPUSCULAR HEMOGLOBIN 27 pg (27.0-31.0)
[2017-02-16 21:51] LABS: ADJUSTED CALCIUM 9.3 mg/dL (8.4-10.2); ALBUMIN 2.5 gm/dL (3.5-5.0); BILIRUBIN,TOTAL 0.4 mg/dL (0.0-1.0); CALCIUM 8.1 mg/dL (8.4-10.2); CREATININE, serum 0.41 mg/dL (0.52-1.25); MAGNESIUM 2.1 mg/dL (1.6-2.3); PHOSPHOROUS 3.2 mg/dL (2.5-4.5); POTASSIUM 4.4 mmol/L (3.4-5.0); TOTAL PROTEIN 5.6 gm/dL (6.4-8.2)
== END ==
LOC: ZCOL.LAB 21:23
PROVIDERS: Surgery Surgical Oncology
DX: R59.0 Localized enlarged lymph nodes (principal); Z02.89 Encounter for other administrative examinations

== ENCOUNTER → 2017-02-24 | Day surgery (SDC) | payer MEDICARE, OTHER ==
[2017-02-24 16:47] LABS: MEAN CELL VOLUME 88 fl (80.0-100.0); MEAN CORPUSCULAR HGB CONC 30 g/dl (33.0-37.0); MEAN PLATELET VOLUME 10.8 fl (7.4-10.4); PLATELET COUNT 657 K/mm3 (130-400); RED BLOOD COUNT 3.44 M/mm3 (4.10-5.30); REDCELL DISTRIBUTION WIDTH-CV 18.4 % (11.5-14.5); WHITE BLOOD COUNT 7.4 K/mm3 (4.8-10.8)
[2017-02-24 16:48] LABS: HEMATOCRIT 30.1 % (37.0-47.0); HEMOGLOBIN 9.1 g/dl (12.5-16.0); MEAN CORPUSCULAR HEMOGLOBIN 26 pg (27.0-31.0)
[2017-02-24 16:53] LABS: ADJUSTED CALCIUM 9.4 mg/dL (8.4-10.2); ALBUMIN 2.3 gm/dL (3.5-5.0); BILIRUBIN,TOTAL 0.4 mg/dL (0.0-1.0); CREATININE, serum 0.52 mg/dL (0.52-1.25); POTASSIUM 4.2 mmol/L (3.4-5.0); TOTAL PROTEIN 5.4 gm/dL (6.4-8.2)
[2017-02-24 17:09] LABS: MAGNESIUM 2.2 mg/dL (1.6-2.3); PHOSPHOROUS 2.5 mg/dL (2.5-4.5)
== END ==
LOC: ZCOL.LAB 11:31
PROVIDERS: Surgery Surgical Oncology
DX: E46 Unspecified protein-calorie malnutrition (principal); K91.2 Postsurgical malabsorption, not elsewhere classified

== ENCOUNTER → 2017-03-02 | Outpatient (CLI) | payer MEDICARE, OTHER ==
[2017-03-02 21:12] LABS: ADJUSTED CALCIUM 9.2 mg/dL (8.4-10.2); ALBUMIN 2.3 gm/dL (3.5-5.0); BILIRUBIN,TOTAL 0.6 mg/dL (0.0-1.0); CALCIUM 7.8 mg/dL (8.4-10.2); CREATININE, serum 0.4 mg/dL (0.52-1.25); MAGNESIUM 1.9 mg/dL (1.6-2.3); PHOSPHOROUS 3.5 mg/dL (2.5-4.5); POTASSIUM 3.7 mmol/L (3.4-5.0); TOTAL PROTEIN 5.4 gm/dL (6.4-8.2)
[2017-03-02 21:28] LABS: MEAN CELL VOLUME 84 fl (80.0-100.0); MEAN CORPUSCULAR HGB CONC 32 g/dl (33.0-37.0); MEAN PLATELET VOLUME 10.8 fl (7.4-10.4); PLATELET COUNT 619 K/mm3 (130-400); RED BLOOD COUNT 2.74 M/mm3 (4.10-5.30); REDCELL DISTRIBUTION WIDTH-CV 17.7 % (11.5-14.5); WHITE BLOOD COUNT 13.2 K/mm3 (4.8-10.8)
[2017-03-02 21:29] LABS: HEMATOCRIT 23.1 % (37.0-47.0); HEMOGLOBIN 7.4 g/dl (12.5-16.0); MEAN CORPUSCULAR HEMOGLOBIN 27 pg (27.0-31.0)
== END ==
LOC: ZCOL.LAB 20:43
PROVIDERS: Surgery Surgical Oncology
DX: I10 Essential (primary) hypertension (principal); Z02.89 Encounter for other administrative examinations

== ENCOUNTER 2017-03-05 13:30 | Outpatient (RCR) | payer MEDICARE, OTHER ==
[2016-12-09 16:20] VITALS: BP 116/62; PULSE 95; TEMP 98.2
[~2017-03-05] VITALS: Ht 167.6 cm; Wt 61.3 kg
[~2017-03-05 13:30] MED LIST changes: -OSCAL 500 TAB500 MG PO
[2017-03-05] MEDS ORDERED: OSCAL 500 TAB500 MG PO (14:00)
[2017-03-05] MEDS ORDERED: REGLAN 5MG T5 MG/TAB PO (14:04)
[2017-03-05] MEDS ORDERED: ZOFRAN 4MG T4 MG/TAB PO (14:05)
[2017-03-05 14:07] LABS: HEMATOCRIT 27.5 % (37.0-47.0); HEMOGLOBIN 9.1 g/dl (12.5-16.0)
[2017-03-05 15:00] VITALS: BP 131/59; PULSE 82; TEMP 98.2
== END 2017-03-09 | disposition home or self-care (01) ==
LOC: EUO
PROVIDERS: Family Medicine
DX: E86.0 Dehydration (principal); C78.6 Secondary malignant neoplasm of retroperitoneum and peritoneum; C80.1 Malignant (primary) neoplasm, unspecified; K56.7 Ileus, unspecified; D64.9 Anemia, unspecified
CPT/HCPCS: J1644; J7030; J7040

== ENCOUNTER → 2017-03-09 | Outpatient (CLI) | payer MEDICARE, OTHER ==
[~2017-03-09] MED LIST changes: +OSCAL 500 TAB500 MG PO
[2017-03-09 22:07] LABS: MEAN CELL VOLUME 84 fl (80.0-100.0); MEAN CORPUSCULAR HGB CONC 33 g/dl (33.0-37.0); MEAN PLATELET VOLUME 10.6 fl (7.4-10.4); PLATELET COUNT 863 K/mm3 (130-400); RED BLOOD COUNT 3.42 M/mm3 (4.10-5.30); REDCELL DISTRIBUTION WIDTH-CV 17.2 % (11.5-14.5); WHITE BLOOD COUNT 14.3 K/mm3 (4.8-10.8)
[2017-03-09 22:14] LABS: ADJUSTED CALCIUM 9.2 mg/dL (8.4-10.2); ALBUMIN 2.6 gm/dL (3.5-5.0); BILIRUBIN,TOTAL 0.4 mg/dL (0.0-1.0); CALCIUM 8.1 mg/dL (8.4-10.2); CREATININE, serum 0.47 mg/dL (0.52-1.25); MAGNESIUM 2.3 mg/dL (1.6-2.3); PHOSPHOROUS 3.7 mg/dL (2.5-4.5); POTASSIUM 4.3 mmol/L (3.4-5.0); TOTAL PROTEIN 5.9 gm/dL (6.4-8.2)
[2017-03-09 22:24] LABS: HEMATOCRIT 28.6 % (37.0-47.0); HEMOGLOBIN 9.3 g/dl (12.5-16.0); MEAN CORPUSCULAR HEMOGLOBIN 27 pg (27.0-31.0)
== END ==
LOC: ZCOL.LAB 21:55
PROVIDERS: Surgery Surgical Oncology
DX: R59.0 Localized enlarged lymph nodes (principal); K91.2 Postsurgical malabsorption, not elsewhere classified; K90.89 Other intestinal malabsorption; E46 Unspecified protein-calorie malnutrition

== ENCOUNTER → 2017-03-16 | Outpatient (CLI) | payer MEDICARE, OTHER ==
[2017-03-16 16:11] LABS: HEMATOCRIT 31.5 % (37.0-47.0); HEMOGLOBIN 9.6 g/dl (12.5-16.0); MEAN CELL VOLUME 86 fl (80.0-100.0); MEAN CORPUSCULAR HEMOGLOBIN 26 pg (27.0-31.0); MEAN CORPUSCULAR HGB CONC 31 g/dl (33.0-37.0); MEAN PLATELET VOLUME 10.6 fl (7.4-10.4); PLATELET COUNT 964 K/mm3 (130-400); RED BLOOD COUNT 3.68 M/mm3 (4.10-5.30); WHITE BLOOD COUNT 5.9 K/mm3 (4.8-10.8)
[2017-03-16 16:51] LABS: ADJUSTED CALCIUM 9.4 mg/dL (8.4-10.2); ALBUMIN 2.7 gm/dL (3.5-5.0); BILIRUBIN,TOTAL 0.4 mg/dL (0.0-1.0); CALCIUM 8.4 mg/dL (8.4-10.2); CREATININE, serum 0.44 mg/dL (0.52-1.25); POTASSIUM 4.6 mmol/L (3.4-5.0); TOTAL PROTEIN 6.3 gm/dL (6.4-8.2)
[2017-03-16 17:20] LABS: MAGNESIUM 2.2 mg/dL (1.6-2.3)
[2017-03-16 18:15] LABS: PHOSPHOROUS 3.3 mg/dL (2.5-4.5)
== END ==
LOC: ZCOL.LAB 14:50
PROVIDERS: Family Medicine
DX: R94.6 Abnormal results of thyroid function studies (principal); K91.2 Postsurgical malabsorption, not elsewhere classified; K90.89 Other intestinal malabsorption; E46 Unspecified protein-calorie malnutrition

== ENCOUNTER → 2017-03-23 | Outpatient (CLI) | payer MEDICARE, OTHER ==
[2017-03-23 13:05] LABS: MEAN CELL VOLUME 85 fl (80.0-100.0); MEAN CORPUSCULAR HGB CONC 31 g/dl (33.0-37.0); MEAN PLATELET VOLUME 10.5 fl (7.4-10.4); PLATELET COUNT 834 K/mm3 (130-400); RED BLOOD COUNT 3.66 M/mm3 (4.10-5.30); REDCELL DISTRIBUTION WIDTH-CV 16.3 % (11.5-14.5); WHITE BLOOD COUNT 7.4 K/mm3 (4.8-10.8)
[2017-03-23 13:07] LABS: HEMATOCRIT 31.1 % (37.0-47.0); HEMOGLOBIN 9.5 g/dl (12.5-16.0); MEAN CORPUSCULAR HEMOGLOBIN 26 pg (27.0-31.0)
[2017-03-23 13:31] LABS: ADJUSTED CALCIUM 9.1 mg/dL (8.4-10.2); ALBUMIN 2.6 gm/dL (3.5-5.0); BILIRUBIN,TOTAL 0.4 mg/dL (0.0-1.0); CREATININE, serum 0.49 mg/dL (0.52-1.25); MAGNESIUM 2.3 mg/dL (1.6-2.3); PHOSPHOROUS 3.2 mg/dL (2.5-4.5); POTASSIUM 4.5 mmol/L (3.4-5.0)
== END ==
LOC: COL.LAB 12:07
PROVIDERS: Surgery Surgical Oncology
DX: K91.2 Postsurgical malabsorption, not elsewhere classified (principal); K90.89 Other intestinal malabsorption

== ENCOUNTER → 2017-03-25 | Outpatient (REF) | LOC: ZAIV 06:00 | DX: Z01.89 Encounter for other specified special examinations (principal) ==

== ENCOUNTER → 2017-03-30 | Outpatient (CLI) | payer MEDICARE, OTHER ==
[2017-03-30 15:34] LABS: MEAN CELL VOLUME 83 fl (80.0-100.0); MEAN CORPUSCULAR HGB CONC 31 g/dl (33.0-37.0); MEAN PLATELET VOLUME 10.4 fl (7.4-10.4); PLATELET COUNT 743 K/mm3 (130-400); RED BLOOD COUNT 3.74 M/mm3 (4.10-5.30); REDCELL DISTRIBUTION WIDTH-CV 15.9 % (11.5-14.5)
[2017-03-30 15:35] LABS: HEMATOCRIT 31.1 % (37.0-47.0); HEMOGLOBIN 9.7 g/dl (12.5-16.0); MEAN CORPUSCULAR HEMOGLOBIN 26 pg (27.0-31.0)
[2017-03-30 15:41] LABS: ADJUSTED CALCIUM 9.1 mg/dL (8.4-10.2); ALBUMIN 2.8 gm/dL (3.5-5.0); BILIRUBIN,TOTAL 0.6 mg/dL (0.0-1.0); CALCIUM 8.1 mg/dL (8.4-10.2); CREATININE, serum 0.42 mg/dL (0.52-1.25); MAGNESIUM 2.1 mg/dL (1.6-2.3); PHOSPHOROUS 3.3 mg/dL (2.5-4.5); POTASSIUM 4.7 mmol/L (3.4-5.0); TOTAL PROTEIN 6.3 gm/dL (6.4-8.2)
== END ==
LOC: COL.LAB 15:16
PROVIDERS: Family Medicine
DX: K91.2 Postsurgical malabsorption, not elsewhere classified (principal); E46 Unspecified protein-calorie malnutrition

== ENCOUNTER → 2017-04-06 | Outpatient (CLI) | payer MEDICARE, OTHER ==
[2017-04-06 13:01] LABS: MEAN CELL VOLUME 83 fl (80.0-100.0); MEAN CORPUSCULAR HGB CONC 30 g/dl (33.0-37.0); MEAN PLATELET VOLUME 10.4 fl (7.4-10.4); PLATELET COUNT 722 K/mm3 (130-400); RED BLOOD COUNT 3.72 M/mm3 (4.10-5.30); REDCELL DISTRIBUTION WIDTH-CV 15.6 % (11.5-14.5); WHITE BLOOD COUNT 7.6 K/mm3 (4.8-10.8)
[2017-04-06 13:06] LABS: HEMATOCRIT 30.7 % (37.0-47.0); HEMOGLOBIN 9.3 g/dl (12.5-16.0); MEAN CORPUSCULAR HEMOGLOBIN 25 pg (27.0-31.0)
[2017-04-06 13:07] LABS: ADD PATHOLOGY DIFF REVIEW NO
[2017-04-06 13:56] LABS: BAND 1 % (0-10); BASOPHIL 1 % (0-2); EOSINOPHIL 1 % (0-4); MYELOCYTE 1 % (0-0); NEUTROPHILS 60 % (42.0-75.2); TOTAL CELLS COUNTED 100
[2017-04-06 14:00] LABS: HYPOCHROMIA 2+; TARGET CELLS 1+
[2017-04-06 14:01] LABS: ANISOCYTOSIS 1+; PLATELET ESTIMATE INCREASED (NORMAL); POIKILOCYTOSIS 1+
[2017-04-06 14:13] LABS: ADJUSTED CALCIUM 8.9 mg/dL (8.4-10.2); ALBUMIN 2.7 gm/dL (3.5-5.0); BILIRUBIN,TOTAL 0.5 mg/dL (0.0-1.0); CALCIUM 7.9 mg/dL (8.4-10.2); CREATININE, serum 0.45 mg/dL (0.52-1.25); MAGNESIUM 2.3 mg/dL (1.6-2.3); PHOSPHOROUS 3.1 mg/dL (2.5-4.5); TOTAL PROTEIN 6.4 gm/dL (6.4-8.2)
== END ==
LOC: ZCOL.LAB 12:06
PROVIDERS: Surgery Surgical Oncology
DX: E87.5 Hyperkalemia (principal)

== ENCOUNTER → 2017-04-13 | Outpatient (CLI) | payer MEDICARE, OTHER ==
[2017-04-13 15:29] LABS: MEAN CELL VOLUME 81 fl (80.0-100.0); MEAN CORPUSCULAR HGB CONC 31 g/dl (33.0-37.0); MEAN PLATELET VOLUME 10.9 fl (7.4-10.4); PLATELET COUNT 703 K/mm3 (130-400); RED BLOOD COUNT 3.92 M/mm3 (4.10-5.30); REDCELL DISTRIBUTION WIDTH-CV 15.3 % (11.5-14.5); WHITE BLOOD COUNT 7.4 K/mm3 (4.8-10.8)
[2017-04-13 15:39] LABS: ADJUSTED CALCIUM 8.9 mg/dL (8.4-10.2); BILIRUBIN,TOTAL 0.5 mg/dL (0.0-1.0); CALCIUM 8.1 mg/dL (8.4-10.2); CREATININE, serum 0.44 mg/dL (0.52-1.25); MAGNESIUM 2.4 mg/dL (1.6-2.3); PHOSPHOROUS 3.7 mg/dL (2.5-4.5); POTASSIUM 3.7 mmol/L (3.4-5.0); TOTAL PROTEIN 6.8 gm/dL (6.4-8.2)
[2017-04-13 15:44] LABS: HEMATOCRIT 31.6 % (37.0-47.0); HEMOGLOBIN 9.9 g/dl (12.5-16.0); MEAN CORPUSCULAR HEMOGLOBIN 25 pg (27.0-31.0)
== END ==
LOC: ZCOL.LAB 14:14
PROVIDERS: Surgery Surgical Oncology
DX: K91.2 Postsurgical malabsorption, not elsewhere classified (principal); E46 Unspecified protein-calorie malnutrition

== ENCOUNTER 2017-04-15 13:07 | Outpatient (CLI) | payer MEDICARE ==
[~2017-04-15] VITALS: Ht 167.6 cm; Wt 57.7 kg
[2017-04-15 13:30] VITALS: BP 118/57; PULSE 77; TEMP 98.7
== END 2017-04-15 16:03 | disposition home or self-care (01) ==
LOC: EUO 13:07
DX: E86.0 Dehydration (principal); R42 Dizziness and giddiness
CPT/HCPCS: J1644; J7040

== ENCOUNTER → 2017-04-20 | Outpatient (CLI) | payer MEDICARE ==
[2017-04-20 16:32] LABS: MEAN CELL VOLUME 80 fl (80.0-100.0); MEAN CORPUSCULAR HGB CONC 31 g/dl (33.0-37.0); MEAN PLATELET VOLUME 11.1 fl (7.4-10.4); PLATELET COUNT 591 K/mm3 (130-400); RED BLOOD COUNT 3.95 M/mm3 (4.10-5.30); REDCELL DISTRIBUTION WIDTH-CV 15.3 % (11.5-14.5); WHITE BLOOD COUNT 6.9 K/mm3 (4.8-10.8)
[2017-04-20 16:33] LABS: HEMATOCRIT 31.5 % (37.0-47.0); HEMOGLOBIN 9.9 g/dl (12.5-16.0); MEAN CORPUSCULAR HEMOGLOBIN 25 pg (27.0-31.0)
[2017-04-20 16:50] LABS: ADJUSTED CALCIUM 9.3 mg/dL (8.4-10.2); BILIRUBIN,TOTAL 0.5 mg/dL (0.0-1.0); CALCIUM 8.5 mg/dL (8.4-10.2); CREATININE, serum 0.45 mg/dL (0.52-1.25); MAGNESIUM 2.1 mg/dL (1.6-2.3); PHOSPHOROUS 3.9 mg/dL (2.5-4.5); TOTAL PROTEIN 6.7 gm/dL (6.4-8.2)
== END ==
LOC: ZCOL.LAB 15:27
PROVIDERS: Surgery Surgical Oncology
DX: K91.2 Postsurgical malabsorption, not elsewhere classified (principal); K90.89 Other intestinal malabsorption; E46 Unspecified protein-calorie malnutrition

== ENCOUNTER → 2017-04-27 | Outpatient (CLI) | payer MEDICARE ==
[2017-04-27 16:43] LABS: HEMOGLOBIN 9.4 g/dl (12.5-16.0); MEAN CELL VOLUME 80 fl (80.0-100.0); MEAN CORPUSCULAR HEMOGLOBIN 25 pg (27.0-31.0); MEAN CORPUSCULAR HGB CONC 31 g/dl (33.0-37.0); MEAN PLATELET VOLUME 10.8 fl (7.4-10.4); PLATELET COUNT 650 K/mm3 (130-400); RED BLOOD COUNT 3.77 M/mm3 (4.10-5.30); REDCELL DISTRIBUTION WIDTH-CV 15.9 % (11.5-14.5); WHITE BLOOD COUNT 7.3 K/mm3 (4.8-10.8)
[2017-04-27 17:12] LABS: ADJUSTED CALCIUM 9.2 mg/dL (8.4-10.2); ALBUMIN 2.8 gm/dL (3.5-5.0); BILIRUBIN,TOTAL 0.5 mg/dL (0.0-1.0); CALCIUM 8.2 mg/dL (8.4-10.2); CREATININE, serum 0.42 mg/dL (0.52-1.25); MAGNESIUM 2.1 mg/dL (1.6-2.3); PHOSPHOROUS 3.3 mg/dL (2.5-4.5); TOTAL PROTEIN 6.4 gm/dL (6.4-8.2)
== END ==
LOC: ZCOL.LAB 16:19
PROVIDERS: Surgery Surgical Oncology
DX: K91.2 Postsurgical malabsorption, not elsewhere classified (principal); K90.89 Other intestinal malabsorption; E46 Unspecified protein-calorie malnutrition

== ENCOUNTER → 2017-05-04 | Outpatient (CLI) | payer MEDICARE ==
[2017-05-04 16:52] LABS: BASO # 0.1 (0.0-0.2); BASO % 0.7 % (0.0-2.0); EOS # 0.1 (0.0-0.7); EOS % 1.1 % (0-4.0); GRAN % 43.8 % (42.2-75.2); HEMATOCRIT 28.5 % (37.0-47.0); HEMOGLOBIN 9.1 g/dl (12.5-16.0); LYMPH % 42.7 % (20.0-51.0); MEAN CELL VOLUME 78 fl (80.0-100.0); MEAN CORPUSCULAR HEMOGLOBIN 25 pg (27.0-31.0); MEAN CORPUSCULAR HGB CONC 32 g/dl (33.0-37.0); MEAN PLATELET VOLUME 10.6 fl (7.4-10.4); MONO # 0.8 (0.1-0.6); MONO % 11.6 % (1.7-9.3); PLATELET COUNT 620 K/mm3 (130-400); RED BLOOD COUNT 3.66 M/mm3 (4.10-5.30)
[2017-05-04 16:53] LABS: ADJUSTED CALCIUM 9.3 mg/dL (8.4-10.2); ALBUMIN 2.7 gm/dL (3.5-5.0); BILIRUBIN,TOTAL 0.3 mg/dL (0.0-1.0); CALCIUM 8.3 mg/dL (8.4-10.2); CREATININE, serum 0.42 mg/dL (0.52-1.25); MAGNESIUM 2.1 mg/dL (1.6-2.3); PHOSPHOROUS 3.8 mg/dL (2.5-4.5); POTASSIUM 3.8 mmol/L (3.4-5.0); TOTAL PROTEIN 6.2 gm/dL (6.4-8.2)
== END ==
LOC: ZCOL.LAB 16:29
PROVIDERS: Surgery Surgical Oncology
DX: K91.2 Postsurgical malabsorption, not elsewhere classified (principal); K90.89 Other intestinal malabsorption; E46 Unspecified protein-calorie malnutrition

== ENCOUNTER → 2017-05-11 | Outpatient (CLI) | payer MEDICARE ==
[2017-05-11 14:35] LABS: BASO # 0.1 (0.0-0.2); BASO % 0.8 % (0.0-2.0); EOS # 0.1 (0.0-0.7); GRAN # 3.4 (1.4-6.5); GRAN % 56.4 % (42.2-75.2); HEMATOCRIT 30.8 % (37.0-47.0); HEMOGLOBIN 9.6 g/dl (12.5-16.0); LYMPH # 1.8 (1.2-3.4); LYMPH % 30.4 % (20.0-51.0); MEAN CELL VOLUME 79 fl (80.0-100.0); MEAN CORPUSCULAR HEMOGLOBIN 25 pg (27.0-31.0); MEAN CORPUSCULAR HGB CONC 31 g/dl (33.0-37.0); MEAN PLATELET VOLUME 10.4 fl (7.4-10.4); MONO # 0.7 (0.1-0.6); MONO % 11.2 % (1.7-9.3); PLATELET COUNT 719 K/mm3 (130-400); RED BLOOD COUNT 3.89 M/mm3 (4.10-5.30); REDCELL DISTRIBUTION WIDTH-CV 16.9 % (11.5-14.5)
[2017-05-11 14:46] LABS: ADJUSTED CALCIUM 9.1 mg/dL (8.4-10.2); ALBUMIN 2.9 gm/dL (3.5-5.0); BILIRUBIN,TOTAL 0.4 mg/dL (0.0-1.0); CALCIUM 8.2 mg/dL (8.4-10.2); CREATININE, serum 0.47 mg/dL (0.52-1.25); MAGNESIUM 2.1 mg/dL (1.6-2.3); PHOSPHOROUS 3.6 mg/dL (2.5-4.5); POTASSIUM 4.2 mmol/L (3.4-5.0); TOTAL PROTEIN 6.5 gm/dL (6.4-8.2)
== END ==
LOC: ZCOL.LAB 14:02
PROVIDERS: Family Medicine
DX: K91.2 Postsurgical malabsorption, not elsewhere classified (principal); E46 Unspecified protein-calorie malnutrition; K90.89 Other intestinal malabsorption

== ENCOUNTER → 2017-05-18 | Outpatient (CLI) | payer MEDICARE ==
[2017-05-18 16:03] LABS: BASO # 0.1 (0.0-0.2); EOS # 0.1 (0.0-0.7); EOS % 1.5 % (0-4.0); GRAN % 38.9 % (42.2-75.2); LYMPH # 2.4 (1.2-3.4); LYMPH % 45.5 % (20.0-51.0); MEAN CELL VOLUME 79 fl (80.0-100.0); MEAN CORPUSCULAR HGB CONC 31 g/dl (33.0-37.0); MEAN PLATELET VOLUME 10.7 fl (7.4-10.4); MONO # 0.7 (0.1-0.6); MONO % 12.9 % (1.7-9.3); PLATELET COUNT 707 K/mm3 (130-400); REDCELL DISTRIBUTION WIDTH-CV 17.3 % (11.5-14.5); WHITE BLOOD COUNT 5.2 K/mm3 (4.8-10.8)
[2017-05-18 16:17] LABS: ADJUSTED CALCIUM 9.2 mg/dL (8.4-10.2); ALBUMIN 2.7 gm/dL (3.5-5.0); BILIRUBIN,TOTAL 0.4 mg/dL (0.0-1.0); CALCIUM 8.2 mg/dL (8.4-10.2); CREATININE, serum 0.43 mg/dL (0.52-1.25); PHOSPHOROUS 3.7 mg/dL (2.5-4.5); POTASSIUM 4.4 mmol/L (3.4-5.0); TOTAL PROTEIN 6.2 gm/dL (6.4-8.2)
[2017-05-18 16:22] LABS: HEMOGLOBIN 9.3 g/dl (12.5-16.0); MEAN CORPUSCULAR HEMOGLOBIN 24 pg (27.0-31.0)
== END ==
LOC: ZCOL.LAB 12:42
PROVIDERS: Surgery Surgical Oncology
DX: K91.2 Postsurgical malabsorption, not elsewhere classified (principal); E46 Unspecified protein-calorie malnutrition; K90.89 Other intestinal malabsorption

== ENCOUNTER → 2017-05-25 | Outpatient (CLI) | payer MEDICARE ==
[2017-05-25 21:00] LABS: MEAN CELL VOLUME 78 fl (80.0-100.0); MEAN CORPUSCULAR HGB CONC 31 g/dl (33.0-37.0); MEAN PLATELET VOLUME 10.5 fl (7.4-10.4); PLATELET COUNT 725 K/mm3 (130-400); RED BLOOD COUNT 4.06 M/mm3 (4.10-5.30); REDCELL DISTRIBUTION WIDTH-CV 17.9 % (11.5-14.5); WHITE BLOOD COUNT 6.8 K/mm3 (4.8-10.8)
[2017-05-25 21:01] LABS: HEMATOCRIT 31.8 % (37.0-47.0); HEMOGLOBIN 9.9 g/dl (12.5-16.0); MEAN CORPUSCULAR HEMOGLOBIN 24 pg (27.0-31.0)
[2017-05-25 22:01] LABS: ADJUSTED CALCIUM 9.6 mg/dL (8.4-10.2); ALBUMIN 3.1 gm/dL (3.5-5.0); BILIRUBIN,TOTAL 0.3 mg/dL (0.0-1.0); CALCIUM 8.9 mg/dL (8.4-10.2); CREATININE, serum 0.49 mg/dL (0.52-1.25); MAGNESIUM 2.2 mg/dL (1.6-2.3); PHOSPHOROUS 3.8 mg/dL (2.5-4.5); POTASSIUM 4.1 mmol/L (3.4-5.0); TOTAL PROTEIN 6.8 gm/dL (6.4-8.2)
== END ==
LOC: ZCOL.LAB 19:16
PROVIDERS: Surgery Surgical Oncology
DX: K91.2 Postsurgical malabsorption, not elsewhere classified (principal); E46 Unspecified protein-calorie malnutrition

== ENCOUNTER → 2017-06-01 | Outpatient (CLI) | payer MEDICARE ==
[2017-06-01 14:23] LABS: MEAN CELL VOLUME 77 fl (80.0-100.0); MEAN CORPUSCULAR HGB CONC 32 g/dl (33.0-37.0); MEAN PLATELET VOLUME 10.2 fl (7.4-10.4); PLATELET COUNT 740 K/mm3 (130-400); RED BLOOD COUNT 4.12 M/mm3 (4.10-5.30); REDCELL DISTRIBUTION WIDTH-CV 18.1 % (11.5-14.5); WHITE BLOOD COUNT 7.1 K/mm3 (4.8-10.8)
[2017-06-01 14:25] LABS: HEMATOCRIT 31.6 % (37.0-47.0); HEMOGLOBIN 10.1 g/dl (12.5-16.0); MEAN CORPUSCULAR HEMOGLOBIN 25 pg (27.0-31.0)
[2017-06-01 14:55] LABS: ADJUSTED CALCIUM 9.4 mg/dL (8.4-10.2); BILIRUBIN,TOTAL 0.5 mg/dL (0.0-1.0); CALCIUM 8.6 mg/dL (8.4-10.2); CREATININE, serum 0.5 mg/dL (0.52-1.25); PHOSPHOROUS 3.6 mg/dL (2.5-4.5); POTASSIUM 4.5 mmol/L (3.4-5.0); TOTAL PROTEIN 6.8 gm/dL (6.4-8.2)
== END ==
LOC: ZCOL.LAB 14:17
PROVIDERS: Surgery Surgical Oncology
DX: K91.2 Postsurgical malabsorption, not elsewhere classified (principal); K90.89 Other intestinal malabsorption; E46 Unspecified protein-calorie malnutrition

== ENCOUNTER → 2017-06-08 | Outpatient (CLI) | payer MEDICARE ==
[2017-06-08 15:27] LABS: BASO % 0.7 % (0.0-2.0); EOS # 0.1 (0.0-0.7); GRAN % 51.5 % (42.2-75.2); LYMPH % 34.3 % (20.0-51.0); MEAN CELL VOLUME 79 fl (80.0-100.0); MEAN CORPUSCULAR HGB CONC 31 g/dl (33.0-37.0); MEAN PLATELET VOLUME 10.3 fl (7.4-10.4); MONO # 0.7 (0.1-0.6); MONO % 12.2 % (1.7-9.3); PLATELET COUNT 741 K/mm3 (130-400); RED BLOOD COUNT 4.04 M/mm3 (4.10-5.30); REDCELL DISTRIBUTION WIDTH-CV 18.4 % (11.5-14.5); WHITE BLOOD COUNT 5.8 K/mm3 (4.8-10.8)
[2017-06-08 15:31] LABS: HEMATOCRIT 31.7 % (37.0-47.0); HEMOGLOBIN 9.8 g/dl (12.5-16.0); MEAN CORPUSCULAR HEMOGLOBIN 24 pg (27.0-31.0)
[2017-06-08 15:43] LABS: ADJUSTED CALCIUM 9.5 mg/dL (8.4-10.2); ALBUMIN 2.9 gm/dL (3.5-5.0); BILIRUBIN,TOTAL 0.3 mg/dL (0.0-1.0); CALCIUM 8.6 mg/dL (8.4-10.2); CREATININE, serum 0.52 mg/dL (0.52-1.25); MAGNESIUM 2.1 mg/dL (1.6-2.3); PHOSPHOROUS 4.1 mg/dL (2.5-4.5); TOTAL PROTEIN 6.6 gm/dL (6.4-8.2)
== END ==
LOC: ZCOL.LAB 15:12
PROVIDERS: Surgery Surgical Oncology
DX: K91.2 Postsurgical malabsorption, not elsewhere classified (principal); K90.89 Other intestinal malabsorption; E46 Unspecified protein-calorie malnutrition

== ENCOUNTER → 2017-06-16 | Outpatient (CLI) | payer MEDICARE ==
[2017-06-16 15:30] LABS: HEMOGLOBIN 8.8 g/dl (12.5-16.0); MEAN CELL VOLUME 79 fl (80.0-100.0); MEAN CORPUSCULAR HEMOGLOBIN 24 pg (27.0-31.0); MEAN CORPUSCULAR HGB CONC 30 g/dl (33.0-37.0); MEAN PLATELET VOLUME 10.5 fl (7.4-10.4); PLATELET COUNT 654 K/mm3 (130-400); RED BLOOD COUNT 3.66 M/mm3 (4.10-5.30); REDCELL DISTRIBUTION WIDTH-CV 19.3 % (11.5-14.5); WHITE BLOOD COUNT 6.2 K/mm3 (4.8-10.8)
[2017-06-16 15:57] LABS: ADJUSTED CALCIUM 9.1 mg/dL (8.4-10.2); ALBUMIN 2.7 gm/dL (3.5-5.0); BILIRUBIN,TOTAL 0.3 mg/dL (0.0-1.0); CALCIUM 8.1 mg/dL (8.4-10.2); CREATININE, serum 0.51 mg/dL (0.52-1.25); MAGNESIUM 2.1 mg/dL (1.6-2.3); POTASSIUM 3.7 mmol/L (3.4-5.0); TOTAL PROTEIN 6.1 gm/dL (6.4-8.2)
== END ==
LOC: ZCOL.LAB 15:03
PROVIDERS: Surgery Surgical Oncology
DX: K91.2 Postsurgical malabsorption, not elsewhere classified (principal); E46 Unspecified protein-calorie malnutrition

== ENCOUNTER → 2017-06-22 | Outpatient (CLI) | payer MEDICARE ==
[2017-06-22 13:02] LABS: MEAN CELL VOLUME 77 fl (80.0-100.0); MEAN CORPUSCULAR HGB CONC 32 g/dl (33.0-37.0); MEAN PLATELET VOLUME 10.3 fl (7.4-10.4); PLATELET COUNT 716 K/mm3 (130-400); RED BLOOD COUNT 3.95 M/mm3 (4.10-5.30); REDCELL DISTRIBUTION WIDTH-CV 18.7 % (11.5-14.5); WHITE BLOOD COUNT 5.6 K/mm3 (4.8-10.8)
[2017-06-22 13:04] LABS: HEMATOCRIT 30.3 % (37.0-47.0); HEMOGLOBIN 9.6 g/dl (12.5-16.0); MEAN CORPUSCULAR HEMOGLOBIN 24 pg (27.0-31.0)
[2017-06-22 13:17] LABS: ADJUSTED CALCIUM 9.4 mg/dL (8.4-10.2); ALBUMIN 2.8 gm/dL (3.5-5.0); BILIRUBIN,TOTAL 0.5 mg/dL (0.0-1.0); CALCIUM 8.4 mg/dL (8.4-10.2); CREATININE, serum 0.47 mg/dL (0.52-1.25); MAGNESIUM 2.1 mg/dL (1.6-2.3); PHOSPHOROUS 3.7 mg/dL (2.5-4.5); POTASSIUM 3.9 mmol/L (3.4-5.0); TOTAL PROTEIN 6.5 gm/dL (6.4-8.2)
== END ==
LOC: ZCOL.LAB 12:50
PROVIDERS: Surgery Surgical Oncology
DX: K91.2 Postsurgical malabsorption, not elsewhere classified (principal); E46 Unspecified protein-calorie malnutrition

== ENCOUNTER → 2017-06-29 | Outpatient (CLI) | payer MEDICARE ==
[2017-06-29 13:27] LABS: MEAN CELL VOLUME 79 fl (80.0-100.0); MEAN CORPUSCULAR HGB CONC 31 g/dl (33.0-37.0); MEAN PLATELET VOLUME 10.8 fl (7.4-10.4); PLATELET COUNT 681 K/mm3 (130-400); RED BLOOD COUNT 4.02 M/mm3 (4.10-5.30); WHITE BLOOD COUNT 5.3 K/mm3 (4.8-10.8)
[2017-06-29 13:29] LABS: HEMATOCRIT 31.7 % (37.0-47.0); HEMOGLOBIN 9.8 g/dl (12.5-16.0); MEAN CORPUSCULAR HEMOGLOBIN 24 pg (27.0-31.0)
[2017-06-29 13:47] LABS: ADJUSTED CALCIUM 9.1 mg/dL (8.4-10.2); ALBUMIN 2.9 gm/dL (3.5-5.0); BILIRUBIN,TOTAL 0.4 mg/dL (0.0-1.0); CALCIUM 8.2 mg/dL (8.4-10.2); CREATININE, serum 0.46 mg/dL (0.52-1.25); PHOSPHOROUS 3.5 mg/dL (2.5-4.5); POTASSIUM 4.5 mmol/L (3.4-5.0); TOTAL PROTEIN 6.5 gm/dL (6.4-8.2)
[2017-06-29 13:54] LABS: PRE ALBUMIN 6.2 mg/dL (17.6-36.0)
== END ==
LOC: ZCOL.LAB 12:58
PROVIDERS: Surgery Surgical Oncology
DX: Z01.89 Encounter for other specified special examinations (principal)

== ENCOUNTER → 2017-07-06 | Outpatient (CLI) | payer MEDICARE ==
[2017-07-06 14:11] LABS: BASO # 0.1 (0.0-0.2); BASO % 0.8 % (0.0-2.0); EOS # 0.1 (0.0-0.7); EOS % 1.4 % (0-4.0); GRAN # 2.8 (1.4-6.5); GRAN % 48.1 % (42.2-75.2); LYMPH # 2.2 (1.2-3.4); MEAN CELL VOLUME 78 fl (80.0-100.0); MEAN CORPUSCULAR HGB CONC 31 g/dl (33.0-37.0); MEAN PLATELET VOLUME 10.2 fl (7.4-10.4); MONO # 0.7 (0.1-0.6); MONO % 11.5 % (1.7-9.3); PLATELET COUNT 720 K/mm3 (130-400); RED BLOOD COUNT 4.06 M/mm3 (4.10-5.30); REDCELL DISTRIBUTION WIDTH-CV 19.4 % (11.5-14.5); WHITE BLOOD COUNT 5.9 K/mm3 (4.8-10.8)
[2017-07-06 14:29] LABS: HEMATOCRIT 31.5 % (37.0-47.0); HEMOGLOBIN 9.8 g/dl (12.5-16.0); MEAN CORPUSCULAR HEMOGLOBIN 24 pg (27.0-31.0)
[2017-07-06 15:12] LABS: ADJUSTED CALCIUM 9.2 mg/dL (8.4-10.2); ALBUMIN 2.9 gm/dL (3.5-5.0); BILIRUBIN,TOTAL 0.5 mg/dL (0.0-1.0); CALCIUM 8.3 mg/dL (8.4-10.2); CREATININE, serum 0.49 mg/dL (0.52-1.25); PHOSPHOROUS 3.5 mg/dL (2.5-4.5); POTASSIUM 4.5 mmol/L (3.4-5.0); TOTAL PROTEIN 6.4 gm/dL (6.4-8.2)
== END ==
LOC: ZCOL.LAB 14:04
PROVIDERS: Surgery Surgical Oncology
DX: K91.2 Postsurgical malabsorption, not elsewhere classified (principal); E46 Unspecified protein-calorie malnutrition

== ENCOUNTER → 2017-07-13 | Outpatient (CLI) | payer MEDICARE ==
[2017-07-13 14:41] LABS: MEAN CELL VOLUME 78 fl (80.0-100.0); MEAN CORPUSCULAR HGB CONC 31 g/dl (33.0-37.0); MEAN PLATELET VOLUME 10.5 fl (7.4-10.4); PLATELET COUNT 731 K/mm3 (130-400); RED BLOOD COUNT 4.01 M/mm3 (4.10-5.30); REDCELL DISTRIBUTION WIDTH-CV 19.3 % (11.5-14.5); WHITE BLOOD COUNT 6.1 K/mm3 (4.8-10.8)
[2017-07-13 14:44] LABS: HEMATOCRIT 31.2 % (37.0-47.0); HEMOGLOBIN 9.8 g/dl (12.5-16.0); MEAN CORPUSCULAR HEMOGLOBIN 24 pg (27.0-31.0)
[2017-07-13 15:08] LABS: ADJUSTED CALCIUM 9.3 mg/dL (8.4-10.2); ALBUMIN 2.9 gm/dL (3.5-5.0); BILIRUBIN,TOTAL 0.5 mg/dL (0.0-1.0); CALCIUM 8.4 mg/dL (8.4-10.2); CREATININE, serum 0.49 mg/dL (0.52-1.25); PHOSPHOROUS 3.5 mg/dL (2.5-4.5); POTASSIUM 3.8 mmol/L (3.4-5.0); TOTAL PROTEIN 6.6 gm/dL (6.4-8.2)
== END ==
LOC: ZCOL.LAB 14:24
PROVIDERS: Surgery Surgical Oncology
DX: K91.2 Postsurgical malabsorption, not elsewhere classified (principal); E46 Unspecified protein-calorie malnutrition

== ENCOUNTER → 2017-07-20 | Outpatient (CLI) | payer MEDICARE ==
[2017-07-20 12:08] LABS: MEAN CELL VOLUME 78 fl (80.0-100.0); MEAN CORPUSCULAR HGB CONC 31 g/dl (33.0-37.0); MEAN PLATELET VOLUME 10.2 fl (7.4-10.4); PLATELET COUNT 698 K/mm3 (130-400); RED BLOOD COUNT 3.88 M/mm3 (4.10-5.30); REDCELL DISTRIBUTION WIDTH-CV 18.6 % (11.5-14.5); WHITE BLOOD COUNT 6.8 K/mm3 (4.8-10.8)
[2017-07-20 12:10] LABS: HEMATOCRIT 30.4 % (37.0-47.0); HEMOGLOBIN 9.5 g/dl (12.5-16.0); MEAN CORPUSCULAR HEMOGLOBIN 24 pg (27.0-31.0)
[2017-07-20 13:12] LABS: ADJUSTED CALCIUM 9.3 mg/dL (8.4-10.2); ALBUMIN 2.8 gm/dL (3.5-5.0); BILIRUBIN,TOTAL 0.5 mg/dL (0.0-1.0); CALCIUM 8.3 mg/dL (8.4-10.2); CREATININE, serum 0.51 mg/dL (0.52-1.25); MAGNESIUM 2.1 mg/dL (1.6-2.3); PHOSPHOROUS 3.7 mg/dL (2.5-4.5); POTASSIUM 4.2 mmol/L (3.4-5.0); TOTAL PROTEIN 6.5 gm/dL (6.4-8.2)
== END ==
LOC: ZCOL.LAB 12:01
PROVIDERS: Surgery Surgical Oncology
DX: K91.2 Postsurgical malabsorption, not elsewhere classified (principal); E46 Unspecified protein-calorie malnutrition

== ENCOUNTER → 2017-07-27 | Outpatient (CLI) | payer MEDICARE ==
[2017-07-27 19:26] LABS: MEAN CELL VOLUME 79 fl (80.0-100.0); MEAN CORPUSCULAR HGB CONC 32 g/dl (33.0-37.0); MEAN PLATELET VOLUME 10.9 fl (7.4-10.4); PLATELET COUNT 629 K/mm3 (130-400); RED BLOOD COUNT 3.88 M/mm3 (4.10-5.30); REDCELL DISTRIBUTION WIDTH-CV 18.7 % (11.5-14.5); WHITE BLOOD COUNT 5.9 K/mm3 (4.8-10.8)
[2017-07-27 19:27] LABS: HEMATOCRIT 30.5 % (37.0-47.0); HEMOGLOBIN 9.6 g/dl (12.5-16.0); MEAN CORPUSCULAR HEMOGLOBIN 25 pg (27.0-31.0)
[2017-07-27 19:53] LABS: ADJUSTED CALCIUM 9.4 mg/dL (8.4-10.2); ALBUMIN 2.9 gm/dL (3.5-5.0); BILIRUBIN,TOTAL 0.6 mg/dL (0.0-1.0); CALCIUM 8.5 mg/dL (8.4-10.2); CREATININE, serum 0.47 mg/dL (0.52-1.25); PHOSPHOROUS 3.8 mg/dL (2.5-4.5); TOTAL PROTEIN 6.8 gm/dL (6.4-8.2)
== END ==
LOC: ZCOL.LAB 18:17
PROVIDERS: Surgery Surgical Oncology
DX: K91.2 Postsurgical malabsorption, not elsewhere classified (principal); E46 Unspecified protein-calorie malnutrition

== ENCOUNTER → 2017-08-03 | Outpatient (CLI) | payer MEDICARE ==
[2017-08-03 16:27] LABS: HEMATOCRIT 30.3 % (37.0-47.0); HEMOGLOBIN 9.6 g/dl (12.5-16.0); MEAN CELL VOLUME 78 fl (80.0-100.0); MEAN CORPUSCULAR HEMOGLOBIN 25 pg (27.0-31.0); MEAN CORPUSCULAR HGB CONC 32 g/dl (33.0-37.0); MEAN PLATELET VOLUME 10.7 fl (7.4-10.4); PLATELET COUNT 623 K/mm3 (130-400); RED BLOOD COUNT 3.88 M/mm3 (4.10-5.30); REDCELL DISTRIBUTION WIDTH-CV 18.6 % (11.5-14.5); WHITE BLOOD COUNT 6.1 K/mm3 (4.8-10.8)
[2017-08-03 17:04] LABS: ADJUSTED CALCIUM 9.2 mg/dL (8.4-10.2); ALBUMIN 2.8 gm/dL (3.5-5.0); BILIRUBIN,TOTAL 0.4 mg/dL (0.0-1.0); CALCIUM 8.2 mg/dL (8.4-10.2); CREATININE, serum 0.53 mg/dL (0.52-1.25); PHOSPHOROUS 3.5 mg/dL (2.5-4.5); POTASSIUM 3.6 mmol/L (3.4-5.0); TOTAL PROTEIN 6.5 gm/dL (6.4-8.2)
== END ==
LOC: ZCOL.LAB 15:58
PROVIDERS: Family Medicine
DX: K21.9 Gastro-esophageal reflux disease without esophagitis (principal); E46 Unspecified protein-calorie malnutrition

== ENCOUNTER → 2017-08-10 | Outpatient (CLI) | payer MEDICARE ==
[2017-08-10 12:45] LABS: ADJUSTED CALCIUM 8.8 mg/dL (8.4-10.2); BILIRUBIN,TOTAL 0.5 mg/dL (0.0-1.0); CREATININE, serum 0.51 mg/dL (0.52-1.25); MAGNESIUM 2.1 mg/dL (1.6-2.3); PHOSPHOROUS 2.7 mg/dL (2.5-4.5); POTASSIUM 3.1 mmol/L (3.4-5.0); TOTAL PROTEIN 6.9 gm/dL (6.4-8.2)
[2017-08-10 12:52] LABS: PRE ALBUMIN 5.6 mg/dL (17.6-36.0)
[2017-08-10 14:29] LABS: MEAN CELL VOLUME 79 fl (80.0-100.0); MEAN CORPUSCULAR HGB CONC 31 g/dl (33.0-37.0); MEAN PLATELET VOLUME 11.6 fl (7.4-10.4); PLATELET COUNT 625 K/mm3 (130-400); RED BLOOD COUNT 3.91 M/mm3 (4.10-5.30); WHITE BLOOD COUNT 6.9 K/mm3 (4.8-10.8)
[2017-08-10 14:30] LABS: HEMATOCRIT 30.9 % (37.0-47.0); HEMOGLOBIN 9.7 g/dl (12.5-16.0); MEAN CORPUSCULAR HEMOGLOBIN 25 pg (27.0-31.0)
== END ==
LOC: ZCOL.LAB 12:17
PROVIDERS: Surgery Surgical Oncology
DX: Z01.89 Encounter for other specified special examinations (principal)

== ENCOUNTER → 2017-08-17 | Outpatient (CLI) | payer MEDICARE ==
[2017-08-17 15:03] LABS: MEAN CELL VOLUME 79 fl (80.0-100.0); MEAN CORPUSCULAR HGB CONC 32 g/dl (33.0-37.0); MEAN PLATELET VOLUME 11.4 fl (7.4-10.4); PLATELET COUNT 646 K/mm3 (130-400); RED BLOOD COUNT 3.79 M/mm3 (4.10-5.30); WHITE BLOOD COUNT 6.9 K/mm3 (4.8-10.8)
[2017-08-17 15:04] LABS: HEMATOCRIT 29.8 % (37.0-47.0); HEMOGLOBIN 9.5 g/dl (12.5-16.0); MEAN CORPUSCULAR HEMOGLOBIN 25 pg (27.0-31.0)
[2017-08-17 15:44] LABS: ADJUSTED CALCIUM 9.1 mg/dL (8.4-10.2); ALBUMIN 3.1 gm/dL (3.5-5.0); BILIRUBIN,TOTAL 0.6 mg/dL (0.0-1.0); CALCIUM 8.4 mg/dL (8.4-10.2); CREATININE, serum 0.53 mg/dL (0.52-1.25); PHOSPHOROUS 3.4 mg/dL (2.5-4.5); POTASSIUM 3.8 mmol/L (3.4-5.0); TOTAL PROTEIN 6.7 gm/dL (6.4-8.2)
[2017-08-17 15:51] LABS: PRE ALBUMIN 6.3 mg/dL (17.6-36.0)
== END ==
LOC: ZCOL.LAB 14:45
PROVIDERS: Surgery Surgical Oncology
DX: K91.2 Postsurgical malabsorption, not elsewhere classified (principal); E46 Unspecified protein-calorie malnutrition

== ENCOUNTER 2017-08-31 13:00 | Outpatient (RCR) | payer MEDICARE, OTHER ==
[~2017-08-31] VITALS: Ht 167.6 cm; Wt 64.5 kg
[2017-08-31 13:33] VITALS: BP 124/48; PULSE 68; TEMP 98.2
[2017-09-20] MEDS ORDERED: CELEXA40 MG PO (18:11)
[2017-09-20] MEDS ORDERED: PROTONIX 40MG T40 MG PO (18:12)
[2017-10-08] MEDS ORDERED: OCUFLOX OPHTH DR5 ML (16:45)
[2017-10-08] MEDS ORDERED: ELIQUIS 5MG (16:45)
== END 2017-10-06 09:32 | disposition home or self-care (01) ==
LOC: EUO 13:00
DX: Z45.2 Encounter for adjustment and management of vascular access device (principal); Z95.9 Presence of cardiac and vascular implant and graft, unspecified
CPT/HCPCS: J1644

== ENCOUNTER → 2017-09-07 | Outpatient (CLI) | payer MEDICARE, OTHER ==
[~2017-09-07] MED LIST changes: +CELEXA40 MG PO; +ELIQUIS 5MG; +OCUFLOX OPHTH DR5 ML
[2017-09-07 16:03] LABS: MEAN CELL VOLUME 78 fl (80.0-100.0); MEAN CORPUSCULAR HGB CONC 32 g/dl (33.0-37.0); MEAN PLATELET VOLUME 10.6 fl (7.4-10.4); PLATELET COUNT 689 K/mm3 (130-400); RED BLOOD COUNT 4.02 M/mm3 (4.10-5.30); WHITE BLOOD COUNT 6.5 K/mm3 (4.8-10.8)
[2017-09-07 16:09] LABS: HEMATOCRIT 31.4 % (37.0-47.0); HEMOGLOBIN 10.1 g/dl (12.5-16.0); MEAN CORPUSCULAR HEMOGLOBIN 25 pg (27.0-31.0)
[2017-09-07 16:11] LABS: ADJUSTED CALCIUM 9.5 mg/dL (8.4-10.2); ALBUMIN 3.3 gm/dL (3.5-5.0); BILIRUBIN,TOTAL 0.4 mg/dL (0.0-1.0); CALCIUM 8.9 mg/dL (8.4-10.2); CREATININE, serum 0.6 mg/dL (0.52-1.25); MAGNESIUM 1.8 mg/dL (1.6-2.3); PHOSPHOROUS 3.8 mg/dL (2.5-4.5); TOTAL PROTEIN 6.9 gm/dL (6.4-8.2)
[2017-09-07 16:18] LABS: PRE ALBUMIN 7.3 mg/dL (17.6-36.0)
== END ==
LOC: ZCOL.LAB 15:50
PROVIDERS: Surgery Surgical Oncology
DX: C78.6 Secondary malignant neoplasm of retroperitoneum and peritoneum (principal); K91.2 Postsurgical malabsorption, not elsewhere classified

== ENCOUNTER → 2017-09-14 | Outpatient (CLI) | payer MEDICARE, OTHER ==
[~2017-09-14] MED LIST changes: -CELEXA40 MG PO; -ELIQUIS 5MG; -OCUFLOX OPHTH DR5 ML
[2017-09-14 15:46] LABS: MEAN CELL VOLUME 77 fl (80.0-100.0); MEAN CORPUSCULAR HGB CONC 32 g/dl (33.0-37.0); MEAN PLATELET VOLUME 10.3 fl (7.4-10.4); PLATELET COUNT 683 K/mm3 (130-400); RED BLOOD COUNT 3.71 M/mm3 (4.10-5.30); WHITE BLOOD COUNT 5.9 K/mm3 (4.8-10.8)
[2017-09-14 16:11] LABS: HEMATOCRIT 28.7 % (37.0-47.0); HEMOGLOBIN 9.3 g/dl (12.5-16.0); MEAN CORPUSCULAR HEMOGLOBIN 25 pg (27.0-31.0)
[2017-09-14 16:52] LABS: ADJUSTED CALCIUM 9.1 mg/dL (8.4-10.2); BILIRUBIN,TOTAL 0.3 mg/dL (0.0-1.0); CALCIUM 8.3 mg/dL (8.4-10.2); CREATININE, serum 0.58 mg/dL (0.52-1.25); MAGNESIUM 1.9 mg/dL (1.6-2.3); PHOSPHOROUS 3.7 mg/dL (2.5-4.5); TOTAL PROTEIN 6.6 gm/dL (6.4-8.2)
[2017-09-14 16:59] LABS: PRE ALBUMIN 6.8 mg/dL (17.6-36.0)
== END ==
LOC: ZCOL.LAB 15:35
PROVIDERS: Surgery Surgical Oncology
DX: Z01.89 Encounter for other specified special examinations (principal)

== ENCOUNTER 2017-09-20 17:53 | Emergency (ER) | payer MEDICARE, OTHER ==
[~2017-09-20] VITALS: Ht 167.6 cm; Wt 63.2 kg
[2017-09-20 17:55] VITALS: BP 143/67; PULSE 69; TEMP 99.5
[2017-09-20] MEDS ORDERED: CELEXA40 MG PO (18:11)
[2017-09-20] MEDS ORDERED: PROTONIX 40MG T40 MG PO (18:12)
== END 2017-09-20 18:35 | disposition home or self-care (01) ==
LOC: COL.ER 17:53
DX: H11.31 Conjunctival hemorrhage, right eye (principal); Z79.01 Long term (current) use of anticoagulants; W22.8XXA Striking against or struck by other objects, initial encounter; Y92.009 Unspecified place in unspecified non-institutional (private) residence as the place of occurrence of the external cause

== ENCOUNTER → 2017-09-21 | Outpatient (CLI) | payer MEDICARE, OTHER ==
[~2017-09-21] MED LIST changes: +CELEXA40 MG PO
[2017-09-21 13:56] LABS: MEAN CELL VOLUME 78 fl (80.0-100.0); MEAN CORPUSCULAR HGB CONC 32 g/dl (33.0-37.0); MEAN PLATELET VOLUME 10.3 fl (7.4-10.4); PLATELET COUNT 684 K/mm3 (130-400); RED BLOOD COUNT 3.84 M/mm3 (4.10-5.30); WHITE BLOOD COUNT 5.6 K/mm3 (4.8-10.8)
[2017-09-21 13:57] LABS: HEMATOCRIT 29.9 % (37.0-47.0); HEMOGLOBIN 9.5 g/dl (12.5-16.0); MEAN CORPUSCULAR HEMOGLOBIN 25 pg (27.0-31.0)
[2017-09-21 14:13] LABS: ADJUSTED CALCIUM 9.4 mg/dL (8.4-10.2); ALBUMIN 2.9 gm/dL (3.5-5.0); BILIRUBIN,TOTAL 0.4 mg/dL (0.0-1.0); CALCIUM 8.5 mg/dL (8.4-10.2); CREATININE, serum 0.6 mg/dL (0.52-1.25); POTASSIUM 4.3 mmol/L (3.4-5.0); TOTAL PROTEIN 6.6 gm/dL (6.4-8.2)
[2017-09-21 14:20] LABS: PRE ALBUMIN 6.2 mg/dL (17.6-36.0)
== END ==
LOC: ZCOL.LAB 13:48
PROVIDERS: Surgery Surgical Oncology
DX: Z01.89 Encounter for other specified special examinations (principal)

== ENCOUNTER → 2017-09-28 | Outpatient (CLI) | payer MEDICARE, OTHER ==
[2017-09-28 16:56] LABS: MEAN CELL VOLUME 77 fl (80.0-100.0); MEAN CORPUSCULAR HGB CONC 32 g/dl (33.0-37.0); MEAN PLATELET VOLUME 10.2 fl (7.4-10.4); PLATELET COUNT 683 K/mm3 (130-400); RED BLOOD COUNT 3.87 M/mm3 (4.10-5.30); WHITE BLOOD COUNT 6.9 K/mm3 (4.8-10.8)
[2017-09-28 16:57] LABS: HEMATOCRIT 29.6 % (37.0-47.0); HEMOGLOBIN 9.4 g/dl (12.5-16.0); MEAN CORPUSCULAR HEMOGLOBIN 24 pg (27.0-31.0)
[2017-09-28 17:17] LABS: ADJUSTED CALCIUM 9.3 mg/dL (8.4-10.2); ALBUMIN 2.7 gm/dL (3.5-5.0); BILIRUBIN,TOTAL 0.3 mg/dL (0.0-1.0); CALCIUM 8.3 mg/dL (8.4-10.2); CREATININE, serum 0.55 mg/dL (0.52-1.25); MAGNESIUM 1.9 mg/dL (1.6-2.3); PHOSPHOROUS 3.4 mg/dL (2.5-4.5); POTASSIUM 4.4 mmol/L (3.4-5.0); TOTAL PROTEIN 6.1 gm/dL (6.4-8.2)
== END ==
LOC: ZCOL.LAB 16:45
PROVIDERS: Surgery Surgical Oncology
DX: Z01.89 Encounter for other specified special examinations (principal)

== ENCOUNTER → 2017-10-06 | Outpatient (REF) ==
[~2017-10-06] MED LIST changes: +ELIQUIS 5MG; +OCUFLOX OPHTH DR5 ML
== END ==
LOC: ZLAB.WCH 08:29
DX: Z01.89 Encounter for other specified special examinations (principal)

== ENCOUNTER 2017-10-09 13:00 | Outpatient (RCR) | payer MEDICARE, OTHER ==
[2017-10-08 16:00] VITALS: BP 118/61; PULSE 74; TEMP 97.7
[~2017-10-09] VITALS: Ht 167.6 cm; Wt 63.6 kg
[2017-10-09 14:58] VITALS: BP 126/62; PULSE 60; TEMP 98.8
[2017-11-25] MEDS ORDERED: TORADOL 10MG TA10 MG PO (15:06)
== END 2018-01-06 | disposition home or self-care (01) ==
LOC: EUO
DX: I50.9 Heart failure, unspecified (principal)
CPT/HCPCS: C1751

== ENCOUNTER → 2017-10-12 | Outpatient (REF) | LOC: ZLAB.WCH 20:23 | DX: Z01.89 Encounter for other specified special examinations (principal) ==

== ENCOUNTER → 2017-10-20 | Outpatient (CLI) | payer MEDICARE, OTHER ==
[2017-10-20 14:35] LABS: BASO # 0.1 (0.0-0.2); EOS # 0.1 (0.0-0.7); EOS % 2.2 % (0-4.0); GRAN # 2.4 (1.4-6.5); LYMPH # 2.8 (1.2-3.4); LYMPH % 45.1 % (20.0-51.0); MEAN CELL VOLUME 77 fl (80.0-100.0); MEAN CORPUSCULAR HGB CONC 31 g/dl (33.0-37.0); MEAN PLATELET VOLUME 10.6 fl (7.4-10.4); MONO # 0.8 (0.1-0.6); MONO % 12.5 % (1.7-9.3); PLATELET COUNT 754 K/mm3 (130-400); RED BLOOD COUNT 3.85 M/mm3 (4.10-5.30); WHITE BLOOD COUNT 6.3 K/mm3 (4.8-10.8)
[2017-10-20 14:36] LABS: HEMATOCRIT 29.6 % (37.0-47.0); HEMOGLOBIN 9.3 g/dl (12.5-16.0); MEAN CORPUSCULAR HEMOGLOBIN 24 pg (27.0-31.0)
[2017-10-20 15:03] LABS: ADJUSTED CALCIUM 9.1 mg/dL (8.4-10.2); ALBUMIN 3.2 gm/dL (3.5-5.0); BILIRUBIN,TOTAL 0.5 mg/dL (0.0-1.0); CALCIUM 8.5 mg/dL (8.4-10.2); CREATININE, serum 0.53 mg/dL (0.52-1.25); PHOSPHOROUS 3.9 mg/dL (2.5-4.5); POTASSIUM 4.9 mmol/L (3.4-5.0); TOTAL PROTEIN 6.9 gm/dL (6.4-8.2)
[2017-10-20 15:10] LABS: PRE ALBUMIN 7.6 mg/dL (17.6-36.0)
== END ==
LOC: ZCOL.LAB 14:19
DX: C78.6 Secondary malignant neoplasm of retroperitoneum and peritoneum (principal)

== ENCOUNTER → 2017-10-27 | Outpatient (REF) | LOC: ZLAB.WCH 18:14 | DX: Z01.89 Encounter for other specified special examinations (principal) ==

== ENCOUNTER → 2017-11-02 | Outpatient (CLI) | payer MEDICARE, OTHER ==
[2017-11-02 16:23] LABS: BASO % 0.6 % (0.0-2.0); EOS # 0.1 (0.0-0.7); EOS % 1.1 % (0-4.0); GRAN % 45.5 % (42.2-75.2); LYMPH # 2.6 (1.2-3.4); LYMPH % 38.9 % (20.0-51.0); MEAN CELL VOLUME 76 fl (80.0-100.0); MEAN CORPUSCULAR HGB CONC 32 g/dl (33.0-37.0); MONO # 0.9 (0.1-0.6); MONO % 13.7 % (1.7-9.3); PLATELET COUNT 590 K/mm3 (130-400); RED BLOOD COUNT 3.67 M/mm3 (4.10-5.30); REDCELL DISTRIBUTION WIDTH-CV 18.5 % (11.5-14.5)
[2017-11-02 16:29] LABS: HEMATOCRIT 27.8 % (37.0-47.0); HEMOGLOBIN 8.8 g/dl (12.5-16.0); MEAN CORPUSCULAR HEMOGLOBIN 24 pg (27.0-31.0)
[2017-11-02 16:44] LABS: BILIRUBIN,TOTAL 0.2 mg/dL (0.0-1.0); CALCIUM 8.6 mg/dL (8.4-10.2); CREATININE, serum 0.53 mg/dL (0.52-1.25); PHOSPHOROUS 3.9 mg/dL (2.5-4.5); POTASSIUM 3.7 mmol/L (3.4-5.0); TOTAL PROTEIN 6.5 gm/dL (6.4-8.2)
[2017-11-02 16:51] LABS: PRE ALBUMIN 6.6 mg/dL (17.6-36.0)
== END ==
LOC: ZCOL.LAB 16:13
PROVIDERS: Surgery Surgical Oncology
DX: C78.6 Secondary malignant neoplasm of retroperitoneum and peritoneum (principal); C80.1 Malignant (primary) neoplasm, unspecified

== ENCOUNTER → 2017-11-09 | Outpatient (CLI) | payer MEDICARE, OTHER ==
[2017-11-09 15:52] LABS: BASO % 0.6 % (0.0-2.0); EOS # 0.1 (0.0-0.7); EOS % 1.4 % (0-4.0); GRAN # 2.9 (1.4-6.5); GRAN % 46.2 % (42.2-75.2); LYMPH # 2.4 (1.2-3.4); LYMPH % 38.8 % (20.0-51.0); MEAN CELL VOLUME 76 fl (80.0-100.0); MEAN CORPUSCULAR HGB CONC 31 g/dl (33.0-37.0); MEAN PLATELET VOLUME 11.1 fl (7.4-10.4); MONO # 0.8 (0.1-0.6); MONO % 12.8 % (1.7-9.3); PLATELET COUNT 598 K/mm3 (130-400); RED BLOOD COUNT 3.71 M/mm3 (4.10-5.30)
[2017-11-09 15:53] LABS: HEMATOCRIT 28.3 % (37.0-47.0); HEMOGLOBIN 8.9 g/dl (12.5-16.0); MEAN CORPUSCULAR HEMOGLOBIN 24 pg (27.0-31.0)
[2017-11-09 16:03] LABS: ALBUMIN 2.8 gm/dL (3.5-5.0); BILIRUBIN,TOTAL 0.3 mg/dL (0.0-1.0); CALCIUM 8.5 mg/dL (8.4-10.2); CREATININE, serum 0.54 mg/dL (0.52-1.25); PHOSPHOROUS 3.8 mg/dL (2.5-4.5); POTASSIUM 3.8 mmol/L (3.4-5.0); TOTAL PROTEIN 6.5 gm/dL (6.4-8.2)
[2017-11-09 16:10] LABS: PRE ALBUMIN 6.3 mg/dL (17.6-36.0)
== END ==
LOC: ZCOL.LAB 15:38
PROVIDERS: Surgery Surgical Oncology
DX: C78.6 Secondary malignant neoplasm of retroperitoneum and peritoneum (principal)

== ENCOUNTER 2017-11-14 17:54 | Emergency (ER) | payer MEDICARE, OTHER ==
[~2017-11-14] VITALS: Ht 167.6 cm; Wt 62.7 kg
[2017-11-14 17:59] VITALS: BP 153/68; TEMP 98.6
[2017-11-14 19:25] VITALS: PULSE 70
== END 2017-11-14 19:25 | disposition home or self-care (01) ==
LOC: COL.ER 17:54
DX: Z43.1 Encounter for attention to gastrostomy (principal); M54.9 Dorsalgia, unspecified; G89.29 Other chronic pain; G47.33 Obstructive sleep apnea (adult) (pediatric); Z86.711 Personal history of pulmonary embolism; Z90.49 Acquired absence of other specified parts of digestive tract; Z90.710 Acquired absence of both cervix and uterus; Z98.51 Tubal ligation status

== ENCOUNTER → 2017-11-16 | Outpatient (REF) | LOC: ZLAB.WCH 18:08 | DX: Z01.89 Encounter for other specified special examinations (principal) ==

== ENCOUNTER 2017-11-21 23:13 | Inpatient (IN) | payer MEDICARE ==
[~2017-11-21] VITALS: Ht 167.6 cm; Wt 66.3 kg
[2017-11-22 01:10] LABS: BASO % 0.3 % (0.0-2.0); EOS # 0.1 (0.0-0.7); EOS % 0.8 % (0-4.0); GRAN # 5.1 (1.4-6.5); LYMPH # 1.5 (1.2-3.4); LYMPH % 20.1 % (20.0-51.0); MEAN CELL VOLUME 76 fl (80.0-100.0); MEAN CORPUSCULAR HGB CONC 32 g/dl (33.0-37.0); MEAN PLATELET VOLUME 10.3 fl (7.4-10.4); MONO # 0.8 (0.1-0.6); MONO % 10.4 % (1.7-9.3); PLATELET COUNT 577 K/mm3 (130-400); RED BLOOD COUNT 3.67 M/mm3 (4.10-5.30); REDCELL DISTRIBUTION WIDTH-CV 19.4 % (11.5-14.5)
[2017-11-22 01:11] LABS: HEMOGLOBIN 8.9 g/dl (12.5-16.0); MEAN CORPUSCULAR HEMOGLOBIN 24 pg (27.0-31.0)
[2017-11-22 01:19] LABS: ALBUMIN 3.1 gm/dL (3.5-5.0); BILIRUBIN,TOTAL 0.2 mg/dL (0.0-1.0); CALCIUM 8.3 mg/dL (8.4-10.2); CREATININE, serum 0.6 mg/dL (0.52-1.25)
[2017-11-22 01:30] LABS: POTASSIUM 2.8 mmol/L (3.4-5.0)
[2017-11-22 02:35] LABS: COLLECTION METHOD CLEAN CATCH
[2017-11-22 02:45] LABS: MUCOUS Present /lpf; PH 6 (5-8); SQUAMOUS EPITHELIAL 0-2 /hpf; URINE APPEARANCE Clear; URINE BACTERIA Rare /hpf; URINE BILIRUBIN Negative (NEGATIVE); URINE BLOOD Negative (NEGATIVE); URINE COLOR Yellow; URINE GLUCOSE Negative (NEGATIVE); URINE KETONE Negative (NEGATIVE); URINE LEUKOCYTE ESTERASE Negative (NEGATIVE); URINE NITRATE Negative (NEGATIVE); URINE PROTEIN(semi-quant) Negative (NEGATIVE); URINE RBC 0-2 /hpf; URINE UROBILINOGEN Negative (NEGATIVE)
[2017-11-22 10:01] VITALS: BP 122/42; PULSE 83; TEMP 99
[2017-11-22 13:54] VITALS: BP 122/53; PULSE 72; TEMP 99.2
[2017-11-22 15:16] LABS: POTASSIUM 3.9 mmol/L (3.4-5.0)
[2017-11-22 17:52] VITALS: BP 154/48; PULSE 62; TEMP 98.5
[2017-11-22 21:00] VITALS: BP 128/62; PULSE 71; TEMP 98.4
[2017-11-23 01:16] VITALS: BP 127/44; PULSE 69; TEMP 99.1
[2017-11-23 06:00] VITALS: BP 144/52; PULSE 80; TEMP 98.6
[2017-11-23 07:05] LABS: BASO % 0.3 % (0.0-2.0); EOS # 0.1 (0.0-0.7); EOS % 1.9 % (0-4.0); GRAN # 3.9 (1.4-6.5); GRAN % 60.5 % (42.2-75.2); LYMPH # 1.6 (1.2-3.4); MEAN CELL VOLUME 78 fl (80.0-100.0); MEAN CORPUSCULAR HGB CONC 31 g/dl (33.0-37.0); MEAN PLATELET VOLUME 10.6 fl (7.4-10.4); MONO # 0.8 (0.1-0.6); MONO % 12.1 % (1.7-9.3); PLATELET COUNT 535 K/mm3 (130-400); RED BLOOD COUNT 3.29 M/mm3 (4.10-5.30); REDCELL DISTRIBUTION WIDTH-CV 19.1 % (11.5-14.5)
[2017-11-23 07:14] LABS: CALCIUM 7.7 mg/dL (8.4-10.2); CREATININE, serum 0.55 mg/dL (0.52-1.25); POTASSIUM 3.4 mmol/L (3.4-5.0)
[2017-11-23 07:21] LABS: HEMATOCRIT 25.5 % (37.0-47.0); HEMOGLOBIN 7.9 g/dl (12.5-16.0); MEAN CORPUSCULAR HEMOGLOBIN 24 pg (27.0-31.0)
[2017-11-23 07:55] LABS: PHOSPHOROUS 2.7 mg/dL (2.5-4.5)
[2017-11-23 09:48] VITALS: BP 118/70; PULSE 77; TEMP 98.8
[2017-11-23 13:23] LABS: ALBUMIN 2.6 gm/dL (3.5-5.0); BILIRUBIN,TOTAL 0.3 mg/dL (0.0-1.0); CALCIUM 7.8 mg/dL (8.4-10.2); CREATININE, serum 0.55 mg/dL (0.52-1.25); POTASSIUM 3.6 mmol/L (3.4-5.0); TOTAL PROTEIN 6.2 gm/dL (6.4-8.2)
[2017-11-23 13:28] VITALS: BP 136/58; PULSE 73; TEMP 98.8
[2017-11-23 13:30] LABS: PRE ALBUMIN 5.8 mg/dL (17.6-36.0)
[2017-11-23 17:42] VITALS: BP 149/63; PULSE 64; TEMP 98.3
[2017-11-23 21:46] VITALS: BP 142/57; PULSE 70; TEMP 98.8
[2017-11-24] VITALS (10 sets, daily range): BP systolic 131–165; BP diastolic 52–64; PULSE 58–82; TEMP 97.5–98.9
[2017-11-24 06:47] LABS: BASO % 0.4 % (0.0-2.0); EOS # 0.2 (0.0-0.7); EOS % 2.1 % (0-4.0); GRAN # 3.9 (1.4-6.5); GRAN % 49.1 % (42.2-75.2); LYMPH # 2.9 (1.2-3.4); LYMPH % 36.6 % (20.0-51.0); MEAN CELL VOLUME 78 fl (80.0-100.0); MEAN CORPUSCULAR HGB CONC 32 g/dl (33.0-37.0); MEAN PLATELET VOLUME 10.5 fl (7.4-10.4); MONO # 0.9 (0.1-0.6); MONO % 11.4 % (1.7-9.3); PLATELET COUNT 592 K/mm3 (130-400); RED BLOOD COUNT 3.52 M/mm3 (4.10-5.30); REDCELL DISTRIBUTION WIDTH-CV 19.1 % (11.5-14.5)
[2017-11-24 06:59] LABS: CALCIUM 7.9 mg/dL (8.4-10.2); CREATININE, serum 0.54 mg/dL (0.52-1.25); POTASSIUM 3.3 mmol/L (3.4-5.0)
[2017-11-24 07:18] LABS: HEMATOCRIT 27.3 % (37.0-47.0); HEMOGLOBIN 8.6 g/dl (12.5-16.0); MEAN CORPUSCULAR HEMOGLOBIN 24 pg (27.0-31.0)
[2017-11-25 06:00] VITALS: BP 134/45; PULSE 92; TEMP 98.5
[2017-11-25 06:46] LABS: CALCIUM 7.9 mg/dL (8.4-10.2); CREATININE, serum 0.52 mg/dL (0.52-1.25); POTASSIUM 3.4 mmol/L (3.4-5.0)
[2017-11-25 09:26] VITALS: BP 120/46; PULSE 68; TEMP 98.6
[2017-11-25 13:41] VITALS: BP 130/51; PULSE 66; TEMP 98.1
[2017-11-25] MEDS ORDERED: TORADOL 10MG TA10 MG PO (15:06)
== END 2017-11-25 16:05 | disposition home health service (06) | DRG 389 ==
LOC: COL.ER 23:13 → SURG 11-22 04:33
PROVIDERS: Emergency Medicine; Internal Medicine; Internal Medicine Gastroenterology; Nurse Practitioner; Physician Assistant
PROC: 0DJ08ZZ Inspection of Upper Intestinal Tract, Via Natural or Artificial Opening Endoscopic (ICD-10-PCS; 2017-11-24)
PROC: 0D20XUZ Change Feeding Device in Upper Intestinal Tract, External Approach (ICD-10-PCS; principal; 2017-11-24 13:30)
DX: K56.7 Ileus, unspecified (principal); K91.2 Postsurgical malabsorption, not elsewhere classified; E34.0 Carcinoid syndrome; G47.33 Obstructive sleep apnea (adult) (pediatric); E87.6 Hypokalemia; D64.9 Anemia, unspecified; Z86.711 Personal history of pulmonary embolism; Z79.02 Long term (current) use of antithrombotics/antiplatelets
CPT/HCPCS: 99222-AI; 99231-AI; 99233-AI; 99239; J1885; J2270; J2405; J2704; J3010; J3480; J7030; J7060; Q9967

== ENCOUNTER → 2017-11-30 | Outpatient (CLI) | payer MEDICARE ==
[~2017-11-30] MED LIST changes: +TORADOL 10MG TA10 MG PO
[2017-11-30 15:43] LABS: BASO % 0.6 % (0.0-2.0); EOS # 0.1 (0.0-0.7); EOS % 1.2 % (0-4.0); GRAN # 3.9 (1.4-6.5); GRAN % 57.2 % (42.2-75.2); LYMPH # 1.9 (1.2-3.4); LYMPH % 27.5 % (20.0-51.0); MEAN CELL VOLUME 76 fl (80.0-100.0); MEAN CORPUSCULAR HGB CONC 32 g/dl (33.0-37.0); MEAN PLATELET VOLUME 10.6 fl (7.4-10.4); MONO # 0.9 (0.1-0.6); MONO % 13.4 % (1.7-9.3); PLATELET COUNT 623 K/mm3 (130-400); RED BLOOD COUNT 3.64 M/mm3 (4.10-5.30); REDCELL DISTRIBUTION WIDTH-CV 19.3 % (11.5-14.5)
[2017-11-30 15:45] LABS: HEMATOCRIT 27.5 % (37.0-47.0); HEMOGLOBIN 8.8 g/dl (12.5-16.0); MEAN CORPUSCULAR HEMOGLOBIN 24 pg (27.0-31.0)
[2017-11-30 16:09] LABS: ALBUMIN 2.8 gm/dL (3.5-5.0); BILIRUBIN,TOTAL 0.2 mg/dL (0.0-1.0); CALCIUM 8.2 mg/dL (8.4-10.2); CREATININE, serum 0.53 mg/dL (0.52-1.25); PHOSPHOROUS 3.4 mg/dL (2.5-4.5); POTASSIUM 4.4 mmol/L (3.4-5.0); TOTAL PROTEIN 6.4 gm/dL (6.4-8.2)
[2017-11-30 16:16] LABS: PRE ALBUMIN 5.8 mg/dL (17.6-36.0)
== END ==
LOC: ZCOL.LAB 15:34
PROVIDERS: Surgery Surgical Oncology
DX: C78.6 Secondary malignant neoplasm of retroperitoneum and peritoneum (principal)

== ENCOUNTER → 2017-12-07 | Outpatient (CLI) | payer MEDICARE ==
[2017-12-07 14:59] LABS: BASO # 0.1 (0.0-0.2); EOS # 0.1 (0.0-0.7); EOS % 1.2 % (0-4.0); GRAN # 3.3 (1.4-6.5); GRAN % 54.8 % (42.2-75.2); LYMPH # 1.9 (1.2-3.4); LYMPH % 31.3 % (20.0-51.0); MEAN CELL VOLUME 77 fl (80.0-100.0); MEAN CORPUSCULAR HGB CONC 31 g/dl (33.0-37.0); MEAN PLATELET VOLUME 10.4 fl (7.4-10.4); MONO # 0.7 (0.1-0.6); MONO % 11.5 % (1.7-9.3); PLATELET COUNT 745 K/mm3 (130-400); RED BLOOD COUNT 3.91 M/mm3 (4.10-5.30); REDCELL DISTRIBUTION WIDTH-CV 19.7 % (11.5-14.5)
[2017-12-07 15:08] LABS: HEMOGLOBIN 9.3 g/dl (12.5-16.0); MEAN CORPUSCULAR HEMOGLOBIN 24 pg (27.0-31.0)
[2017-12-07 15:14] LABS: ALBUMIN 3.2 gm/dL (3.5-5.0); BILIRUBIN,TOTAL 0.3 mg/dL (0.0-1.0); CALCIUM 8.8 mg/dL (8.4-10.2); CREATININE, serum 0.58 mg/dL (0.52-1.25); MAGNESIUM 2.2 mg/dL (1.6-2.3); PHOSPHOROUS 3.9 mg/dL (2.5-4.5); POTASSIUM 4.7 mmol/L (3.4-5.0); TOTAL PROTEIN 7.1 gm/dL (6.4-8.2)
[2017-12-07 15:21] LABS: PRE ALBUMIN 7.1 mg/dL (17.6-36.0)
== END ==
LOC: ZCOL.LAB 14:32
PROVIDERS: Surgery Surgical Oncology
DX: C78.6 Secondary malignant neoplasm of retroperitoneum and peritoneum (principal)

== ENCOUNTER → 2017-12-14 | Outpatient (CLI) | payer MEDICARE ==
[2017-12-14 14:05] LABS: HEMATOCRIT 30.1 % (37.0-47.0); HEMOGLOBIN 9.5 g/dl (12.5-16.0); MEAN CELL VOLUME 76 fl (80.0-100.0); MEAN CORPUSCULAR HEMOGLOBIN 24 pg (27.0-31.0); MEAN CORPUSCULAR HGB CONC 32 g/dl (33.0-37.0); MEAN PLATELET VOLUME 10.5 fl (7.4-10.4); PLATELET COUNT 750 K/mm3 (130-400); RED BLOOD COUNT 3.95 M/mm3 (4.10-5.30); REDCELL DISTRIBUTION WIDTH-CV 19.4 % (11.5-14.5)
[2017-12-14 14:11] LABS: MAGNESIUM 2.3 mg/dL (1.6-2.3); PHOSPHOROUS 3.8 mg/dL (2.5-4.5)
[2017-12-14 14:18] LABS: PRE ALBUMIN 8.3 mg/dL (17.6-36.0)
[2017-12-15 15:03] LABS: ALBUMIN 3.1 gm/dL (3.5-5.0); BILIRUBIN,TOTAL 0.2 mg/dL (0.0-1.0); CALCIUM 8.5 mg/dL (8.4-10.2); CREATININE, serum 0.57 mg/dL (0.52-1.25); POTASSIUM 4.6 mmol/L (3.4-5.0); TOTAL PROTEIN 6.9 gm/dL (6.4-8.2)
== END ==
LOC: ZCOL.LAB 13:43
PROVIDERS: Family Medicine
DX: Z01.89 Encounter for other specified special examinations (principal)

== ENCOUNTER → 2017-12-21 | Outpatient (CLI) | payer MEDICARE ==
[2017-12-21 16:27] LABS: BASO % 0.6 % (0.0-2.0); EOS # 0.2 (0.0-0.7); EOS % 2.6 % (0-4.0); GRAN # 3.6 (1.4-6.5); LYMPH # 2.2 (1.2-3.4); LYMPH % 32.4 % (20.0-51.0); MEAN CELL VOLUME 76 fl (80.0-100.0); MEAN CORPUSCULAR HGB CONC 32 g/dl (33.0-37.0); MEAN PLATELET VOLUME 10.4 fl (7.4-10.4); MONO # 0.8 (0.1-0.6); MONO % 11.3 % (1.7-9.3); PLATELET COUNT 663 K/mm3 (130-400); RED BLOOD COUNT 3.62 M/mm3 (4.10-5.30); REDCELL DISTRIBUTION WIDTH-CV 20.2 % (11.5-14.5)
[2017-12-21 16:35] LABS: HEMATOCRIT 27.6 % (37.0-47.0); HEMOGLOBIN 8.8 g/dl (12.5-16.0); MEAN CORPUSCULAR HEMOGLOBIN 24 pg (27.0-31.0)
[2017-12-21 16:40] LABS: ALBUMIN 2.7 gm/dL (3.5-5.0); BILIRUBIN,TOTAL 0.2 mg/dL (0.0-1.0); CALCIUM 8.1 mg/dL (8.4-10.2); CREATININE, serum 0.56 mg/dL (0.52-1.25); MAGNESIUM 2.2 mg/dL (1.6-2.3); PHOSPHOROUS 3.2 mg/dL (2.5-4.5); POTASSIUM 4.1 mmol/L (3.4-5.0); TOTAL PROTEIN 6.3 gm/dL (6.4-8.2)
[2017-12-21 16:47] LABS: PRE ALBUMIN 6.3 mg/dL (17.6-36.0)
== END ==
LOC: ZCOL.LAB 16:18
PROVIDERS: Surgery Surgical Oncology
DX: C78.6 Secondary malignant neoplasm of retroperitoneum and peritoneum (principal)

== ENCOUNTER → 2017-12-28 | Outpatient (CLI) | payer MEDICARE ==
[2017-12-28 17:13] LABS: MEAN CELL VOLUME 76 fl (80.0-100.0); MEAN CORPUSCULAR HGB CONC 33 g/dl (33.0-37.0); MEAN PLATELET VOLUME 10.4 fl (7.4-10.4); PLATELET COUNT 579 K/mm3 (130-400); RED BLOOD COUNT 3.61 M/mm3 (4.10-5.30); REDCELL DISTRIBUTION WIDTH-CV 20.7 % (11.5-14.5)
[2017-12-28 17:14] LABS: HEMATOCRIT 27.4 % (37.0-47.0); HEMOGLOBIN 8.9 g/dl (12.5-16.0); MEAN CORPUSCULAR HEMOGLOBIN 25 pg (27.0-31.0)
[2017-12-28 17:26] LABS: PHOSPHOROUS 3.4 mg/dL (2.5-4.5)
[2017-12-28 17:33] LABS: PRE ALBUMIN 7.8 mg/dL (17.6-36.0)
== END ==
LOC: ZCOL.LAB 16:58
PROVIDERS: Surgery Surgical Oncology
DX: C78.6 Secondary malignant neoplasm of retroperitoneum and peritoneum (principal)

== ENCOUNTER → 2018-01-04 | Outpatient (CLI) | payer MEDICARE ==
[2018-01-04 13:52] LABS: HEMOGLOBIN 8.6 g/dl (12.5-16.0); MEAN CELL VOLUME 77 fl (80.0-100.0); MEAN CORPUSCULAR HEMOGLOBIN 25 pg (27.0-31.0); MEAN CORPUSCULAR HGB CONC 33 g/dl (33.0-37.0); MEAN PLATELET VOLUME 10.3 fl (7.4-10.4); PLATELET COUNT 572 K/mm3 (130-400); RED BLOOD COUNT 3.42 M/mm3 (4.10-5.30); REDCELL DISTRIBUTION WIDTH-CV 21.2 % (11.5-14.5)
[2018-01-04 13:53] LABS: HEMATOCRIT 26.2 % (37.0-47.0)
[2018-01-04 14:06] LABS: PHOSPHOROUS 3.2 mg/dL (2.5-4.5)
[2018-01-04 14:13] LABS: PRE ALBUMIN 5.6 mg/dL (17.6-36.0)
[2018-01-05 14:11] LABS: ALBUMIN 2.4 gm/dL (3.5-5.0); BILIRUBIN,TOTAL 0.2 mg/dL (0.0-1.0); CALCIUM 7.9 mg/dL (8.4-10.2); CREATININE, serum 0.49 mg/dL (0.52-1.25); POTASSIUM 4.4 mmol/L (3.4-5.0); TOTAL PROTEIN 5.7 gm/dL (6.4-8.2)
== END ==
LOC: ZCOL.LAB 13:42
PROVIDERS: Surgery Surgical Oncology
DX: K91.2 Postsurgical malabsorption, not elsewhere classified (principal); E46 Unspecified protein-calorie malnutrition

== ENCOUNTER → 2018-01-11 | Outpatient (CLI) | payer MEDICARE ==
[2018-01-11 15:46] LABS: MEAN CELL VOLUME 77 fl (80.0-100.0); MEAN CORPUSCULAR HGB CONC 32 g/dl (33.0-37.0); MEAN PLATELET VOLUME 10.6 fl (7.4-10.4); PLATELET COUNT 691 K/mm3 (130-400); RED BLOOD COUNT 3.39 M/mm3 (4.10-5.30)
[2018-01-11 15:47] LABS: HEMATOCRIT 26.1 % (37.0-47.0); HEMOGLOBIN 8.4 g/dl (12.5-16.0); MEAN CORPUSCULAR HEMOGLOBIN 25 pg (27.0-31.0)
[2018-01-11 15:51] LABS: MAGNESIUM 1.9 mg/dL (1.6-2.3); PHOSPHOROUS 3.1 mg/dL (2.5-4.5)
[2018-01-11 15:58] LABS: PRE ALBUMIN 5.7 mg/dL (17.6-36.0)
[2018-01-12 13:12] LABS: ALBUMIN 2.3 gm/dL (3.5-5.0); BILIRUBIN,TOTAL 0.1 mg/dL (0.0-1.0); CALCIUM 7.6 mg/dL (8.4-10.2); CREATININE, serum 0.47 mg/dL (0.52-1.25); POTASSIUM 4.5 mmol/L (3.4-5.0); TOTAL PROTEIN 5.6 gm/dL (6.4-8.2)
== END ==
LOC: ZCOL.LAB 15:16
PROVIDERS: Family Medicine
DX: K91.2 Postsurgical malabsorption, not elsewhere classified (principal)

== ENCOUNTER → 2018-01-18 | Outpatient (CLI) | payer MEDICARE ==
[2018-01-18 17:17] LABS: HEMATOCRIT 28.1 % (37.0-47.0); MEAN CELL VOLUME 78 fl (80.0-100.0); MEAN CORPUSCULAR HEMOGLOBIN 25 pg (27.0-31.0); MEAN CORPUSCULAR HGB CONC 32 g/dl (33.0-37.0); PLATELET COUNT 777 K/mm3 (130-400); REDCELL DISTRIBUTION WIDTH-CV 21.4 % (11.5-14.5)
[2018-01-18 17:32] LABS: ALBUMIN 2.7 gm/dL (3.5-5.0); BILIRUBIN,TOTAL 0.3 mg/dL (0.0-1.0); CREATININE, serum 0.56 mg/dL (0.52-1.25); MAGNESIUM 2.2 mg/dL (1.6-2.3); PHOSPHOROUS 3.7 mg/dL (2.5-4.5); POTASSIUM 4.3 mmol/L (3.4-5.0); TOTAL PROTEIN 6.5 gm/dL (6.4-8.2)
[2018-01-18 17:40] LABS: PRE ALBUMIN 6.5 mg/dL (17.6-36.0)
== END ==
LOC: ZCOL.LAB 17:09
PROVIDERS: Family Medicine
DX: K91.2 Postsurgical malabsorption, not elsewhere classified (principal); E46 Unspecified protein-calorie malnutrition

== ENCOUNTER → 2018-02-01 | Outpatient (CLI) | payer MEDICARE ==
[2018-02-01 13:28] LABS: MEAN CELL VOLUME 80 fl (80.0-100.0); MEAN CORPUSCULAR HGB CONC 31 g/dl (33.0-37.0); MEAN PLATELET VOLUME 11.6 fl (7.4-10.4); PLATELET COUNT 561 K/mm3 (130-400); RED BLOOD COUNT 3.56 M/mm3 (4.10-5.30); REDCELL DISTRIBUTION WIDTH-CV 22.4 % (11.5-14.5)
[2018-02-01 13:29] LABS: HEMATOCRIT 28.4 % (37.0-47.0); HEMOGLOBIN 8.8 g/dl (12.5-16.0); MEAN CORPUSCULAR HEMOGLOBIN 25 pg (27.0-31.0)
[2018-02-01 13:57] LABS: MAGNESIUM 2.6 mg/dL (1.6-2.3); PHOSPHOROUS 3.2 mg/dL (2.5-4.5)
[2018-02-01 14:03] LABS: PRE ALBUMIN 10.9 mg/dL (17.6-36.0)
[2018-02-02 11:06] LABS: ALBUMIN 2.5 gm/dL (3.5-5.0); BILIRUBIN,TOTAL 0.2 mg/dL (0.0-1.0); CALCIUM 7.5 mg/dL (8.4-10.2); CREATININE, serum 0.53 mg/dL (0.52-1.25); TOTAL PROTEIN 6.2 gm/dL (6.4-8.2)
== END ==
LOC: ZCOL.LAB 13:11
PROVIDERS: Family Medicine
DX: C78.6 Secondary malignant neoplasm of retroperitoneum and peritoneum (principal)

== ENCOUNTER 2018-02-05 11:02 | Inpatient (IN) | payer MEDICARE ==
[~2018-02-05] VITALS: Ht 167.6 cm; Wt 61.6 kg
[2018-02-05 11:37] VITALS: BP 155/69; PULSE 73; TEMP 97.8
[2018-02-05 11:42] LABS: BILIRUBIN,TOTAL 0.3 mg/dL (0.0-1.0); CALCIUM 7.9 mg/dL (8.4-10.2); CREATININE, serum 0.62 mg/dL (0.52-1.25); MAGNESIUM 2.5 mg/dL (1.6-2.3); PHOSPHOROUS 2.9 mg/dL (2.5-4.5)
[2018-02-05 11:45] LABS: POTASSIUM 2.9 mmol/L (3.4-5.0)
[2018-02-05 14:43] LABS: ALBUMIN 2.8 gm/dL (3.5-5.0); BILIRUBIN,TOTAL 0.2 mg/dL (0.0-1.0); CALCIUM 7.8 mg/dL (8.4-10.2); CREATININE, serum 0.73 mg/dL (0.52-1.25); TOTAL PROTEIN 6.4 gm/dL (6.4-8.2)
[2018-02-05 14:48] LABS: POTASSIUM 2.9 mmol/L (3.4-5.0)
[2018-02-05] MEDS ORDERED: PREVACID SOLUTA30 M2 PO (15:19)
[2018-02-05] MEDS ORDERED: NORCO 325 MG-101 TAB PO (15:21)
[2018-02-05 17:30] VITALS: BP 154/71; PULSE 74; TEMP 98.2
[2018-02-05 19:29] VITALS: BP 164/70; PULSE 68; TEMP 99.3
[2018-02-05 20:00] VITALS: BP 145/89; PULSE 67; TEMP 98.7
[2018-02-06] VITALS: BP 136/51; PULSE 62; TEMP 97.8
[2018-02-06 01:18] LABS: CALCIUM 7.7 mg/dL (8.4-10.2); CREATININE, serum 0.63 mg/dL (0.52-1.25); POTASSIUM 3.5 mmol/L (3.4-5.0)
[2018-02-06 04:00] VITALS: BP 153/70; PULSE 68
[2018-02-06 05:54] LABS: MEAN CELL VOLUME 80 fl (80.0-100.0); MEAN CORPUSCULAR HGB CONC 32 g/dl (33.0-37.0); MEAN PLATELET VOLUME 11.6 fl (7.4-10.4); PLATELET COUNT 412 K/mm3 (130-400); RED BLOOD COUNT 3.07 M/mm3 (4.10-5.30); REDCELL DISTRIBUTION WIDTH-CV 22.4 % (11.5-14.5)
[2018-02-06 05:56] LABS: HEMATOCRIT 24.6 % (37.0-47.0); HEMOGLOBIN 7.8 g/dl (12.5-16.0); MEAN CORPUSCULAR HEMOGLOBIN 25 pg (27.0-31.0)
[2018-02-06 06:05] LABS: CALCIUM 7.5 mg/dL (8.4-10.2); CREATININE, serum 0.59 mg/dL (0.52-1.25); POTASSIUM 3.6 mmol/L (3.4-5.0)
[2018-02-06 07:03] LABS: IRON,SERUM 25 ug/dL (35-150)
[2018-02-06 07:39] LABS: FERRITIN 14 ng/mL (11-264)
[2018-02-06 07:40] LABS: TOTAL IRON BINDING CAPACITY 287 ug/dL (265-497)
[2018-02-06 09:24] LABS: CALCIUM 7.6 mg/dL (8.4-10.2); CREATININE, serum 0.65 mg/dL (0.52-1.25); POTASSIUM 3.4 mmol/L (3.4-5.0)
[2018-02-06 12:53] VITALS: BP 137/65; PULSE 74; TEMP 99
[2018-02-06 12:53] LABS: CALCIUM 7.6 mg/dL (8.4-10.2); CREATININE, serum 0.6 mg/dL (0.52-1.25); POTASSIUM 3.5 mmol/L (3.4-5.0)
[2018-02-06 16:43] LABS: CALCIUM 7.5 mg/dL (8.4-10.2); CREATININE, serum 0.6 mg/dL (0.52-1.25); POTASSIUM 3.2 mmol/L (3.4-5.0)
[2018-02-06 17:00] VITALS: PULSE 78; TEMP 99
[2018-02-06 20:00] VITALS: BP 165/83; PULSE 68; TEMP 97.8
[2018-02-06 21:43] LABS: HEMATOCRIT 28.7 % (37.0-47.0); HEMOGLOBIN 9.1 g/dl (12.5-16.0)
[2018-02-06 21:54] LABS: CALCIUM 7.8 mg/dL (8.4-10.2); CREATININE, serum 0.64 mg/dL (0.52-1.25); POTASSIUM 3.2 mmol/L (3.4-5.0)
[2018-02-07] VITALS: BP 143/83; PULSE 67
[2018-02-07 04:00] VITALS: BP 131/68; PULSE 68
[2018-02-07 06:12] LABS: MEAN CELL VOLUME 78 fl (80.0-100.0); MEAN CORPUSCULAR HGB CONC 32 g/dl (33.0-37.0); MEAN PLATELET VOLUME 11.6 fl (7.4-10.4); PLATELET COUNT 369 K/mm3 (130-400); RED BLOOD COUNT 3.48 M/mm3 (4.10-5.30)
[2018-02-07 06:31] LABS: HEMATOCRIT 27.3 % (37.0-47.0); HEMOGLOBIN 8.8 g/dl (12.5-16.0); MEAN CORPUSCULAR HEMOGLOBIN 25 pg (27.0-31.0)
[2018-02-07 07:11] LABS: CALCIUM 7.5 mg/dL (8.4-10.2); CREATININE, serum 0.58 mg/dL (0.52-1.25); POTASSIUM 3.3 mmol/L (3.4-5.0)
[2018-02-07 10:45] LABS: ALBUMIN 2.6 gm/dL (3.5-5.0); MAGNESIUM 2.2 mg/dL (1.6-2.3); PHOSPHOROUS 3.6 mg/dL (2.5-4.5)
== END 2018-02-07 15:07 | disposition home or self-care (01) | DRG 641 ==
LOC: EUO 11:02 → ICU 15:47
PROVIDERS: Family Medicine; Internal Medicine Nephrology; Nurse Practitioner Family
DX: E87.6 Hypokalemia (principal); E34.0 Carcinoid syndrome; E46 Unspecified protein-calorie malnutrition; Z66 Do not resuscitate; E87.0 Hyperosmolality and hypernatremia; E86.0 Dehydration; D64.9 Anemia, unspecified; G89.29 Other chronic pain
CPT/HCPCS: 99223-AI; 99233-AI; A4217; G0378; J0610; J2405; J3475; J3480; J7070; P9016

== ENCOUNTER 2018-02-08 04:16 | Emergency (ER) | payer MEDICARE ==
[~2018-02-08] VITALS: Ht 167.6 cm; Wt 62.7 kg
[~2018-02-08 04:16] MED LIST changes: +PREVACID SOLUTA30 M2 PO
[2018-02-08 04:44] LABS: BASO % 0.3 % (0.0-2.0); EOS # 0.1 (0.0-0.7); EOS % 1.8 % (0-4.0); GRAN # 5.1 (1.4-6.5); GRAN % 66.8 % (42.2-75.2); LYMPH # 1.8 (1.2-3.4); LYMPH % 23.8 % (20.0-51.0); MEAN CELL VOLUME 79 fl (80.0-100.0); MEAN CORPUSCULAR HGB CONC 33 g/dl (33.0-37.0); MEAN PLATELET VOLUME 11.2 fl (7.4-10.4); MONO # 0.5 (0.1-0.6); PLATELET COUNT 441 K/mm3 (130-400); RED BLOOD COUNT 3.83 M/mm3 (4.10-5.30); REDCELL DISTRIBUTION WIDTH-CV 21.2 % (11.5-14.5)
[2018-02-08 05:00] LABS: HEMATOCRIT 30.1 % (37.0-47.0); HEMOGLOBIN 9.8 g/dl (12.5-16.0); MEAN CORPUSCULAR HEMOGLOBIN 26 pg (27.0-31.0)
[2018-02-08 05:03] LABS: INR 1.2 (0.8-3.0); PROTHROMBIN TIME 13.5 SECONDS (9.7-12.8)
[2018-02-08 05:07] LABS: ALANINE AMINOTRANSFERASE 49 U/L (9-52); ALBUMIN 2.8 gm/dL (3.5-5.0); ALKALINE PHOSPHATASE 118 U/L (50-136); AST,SGOT 58 U/L (15-37); BILIRUBIN,TOTAL 0.3 mg/dL (0.0-1.0); BLOOD UREA NITROGEN 41 mg/dL (7-17); CALCIUM 7.2 mg/dL (8.4-10.2); CHLORIDE 94 mmol/L (98-107); CREATININE, serum 0.72 mg/dL (0.52-1.25); GLUCOSE 150 mg/dL (74-106); LIPASE 46 U/L (23-300); SODIUM 145 mmol/L (137-145); TOTAL PROTEIN 6.6 gm/dL (6.4-8.2)
[2018-02-08 05:15] LABS: CARBON DIOXIDE 43 mmol/L (22-30)
[2018-02-08 05:16] LABS: ANION GAP 11 mmol/L (7-16)
[2018-02-08 05:20] LABS: TROPONIN-I < 0.012 ng/mL (0.000-0.034)
[2018-02-08 07:55] VITALS: BP 132/61; PULSE 64; TEMP 98.6
== END 2018-02-08 07:59 | disposition home or self-care (01) ==
LOC: COL.ER 04:16
PROVIDERS: Emergency Medicine
DX: R07.89 Other chest pain (principal); E87.6 Hypokalemia; Z90.49 Acquired absence of other specified parts of digestive tract
CPT/HCPCS: J3475; J7040

== ENCOUNTER 2018-02-09 15:42 | Outpatient (CLI) | payer MEDICARE ==
[~2018-02-09] VITALS: Ht 167.6 cm; Wt 61.0 kg
[2018-02-09 16:57] VITALS: BP 134/62; PULSE 67; TEMP 97.2
[2018-02-09 20:37] LABS: ALBUMIN 2.7 gm/dL (3.5-5.0); BILIRUBIN,TOTAL 0.4 mg/dL (0.0-1.0); CALCIUM 7.5 mg/dL (8.4-10.2); CREATININE, serum 0.59 mg/dL (0.52-1.25); POTASSIUM 3.9 mmol/L (3.4-5.0); TOTAL PROTEIN 6.2 gm/dL (6.4-8.2)
[2018-02-09 20:43] LABS: MAGNESIUM 2.4 mg/dL (1.6-2.3); PHOSPHOROUS 2.9 mg/dL (2.5-4.5)
== END 2018-02-09 20:30 | disposition home or self-care (01) ==
LOC: EUO 15:42
PROVIDERS: Family Medicine
DX: E87.0 Hyperosmolality and hypernatremia (principal)
CPT/HCPCS: J1644; J3480

== ENCOUNTER → 2018-02-09 | Outpatient (CLI) | payer MEDICARE ==
[2018-02-09 12:52] LABS: BASO % 0.4 % (0.0-2.0); EOS # 0.1 (0.0-0.7); EOS % 1.9 % (0-4.0); GRAN # 4.2 (1.4-6.5); LYMPH # 2.4 (1.2-3.4); LYMPH % 32.2 % (20.0-51.0); MEAN CELL VOLUME 79 fl (80.0-100.0); MEAN CORPUSCULAR HGB CONC 32 g/dl (33.0-37.0); MEAN PLATELET VOLUME 12.3 fl (7.4-10.4); MONO # 0.7 (0.1-0.6); MONO % 9.2 % (1.7-9.3); PLATELET COUNT 407 K/mm3 (130-400); RED BLOOD COUNT 3.74 M/mm3 (4.10-5.30); REDCELL DISTRIBUTION WIDTH-CV 22.1 % (11.5-14.5)
[2018-02-09 12:57] LABS: HEMATOCRIT 29.6 % (37.0-47.0); HEMOGLOBIN 9.5 g/dl (12.5-16.0); MEAN CORPUSCULAR HEMOGLOBIN 25 pg (27.0-31.0)
[2018-02-09 13:14] LABS: ALBUMIN 2.5 gm/dL (3.5-5.0); BILIRUBIN,TOTAL 0.3 mg/dL (0.0-1.0); CALCIUM 7.4 mg/dL (8.4-10.2); CREATININE, serum 0.61 mg/dL (0.52-1.25); MAGNESIUM 2.7 mg/dL (1.6-2.3); PHOSPHOROUS 3.4 mg/dL (2.5-4.5); POTASSIUM 3.9 mmol/L (3.4-5.0); TOTAL PROTEIN 5.9 gm/dL (6.4-8.2)
[2018-02-09 13:23] LABS: PRE ALBUMIN 9.8 mg/dL (17.6-36.0)
== END ==
LOC: ZCOL.LAB 11:58
PROVIDERS: Surgery Surgical Oncology
DX: C78.6 Secondary malignant neoplasm of retroperitoneum and peritoneum (principal)

== ENCOUNTER → 2018-02-11 | Outpatient (CLI) | payer MEDICARE ==
[2018-02-11 12:44] LABS: BASO % 0.4 % (0.0-2.0); EOS # 0.1 (0.0-0.7); EOS % 1.5 % (0-4.0); GRAN # 4.2 (1.4-6.5); LYMPH # 2.9 (1.2-3.4); LYMPH % 34.9 % (20.0-51.0); MEAN CELL VOLUME 80 fl (80.0-100.0); MEAN CORPUSCULAR HGB CONC 32 g/dl (33.0-37.0); MEAN PLATELET VOLUME 11.8 fl (7.4-10.4); PLATELET COUNT 430 K/mm3 (130-400); REDCELL DISTRIBUTION WIDTH-CV 21.6 % (11.5-14.5)
[2018-02-11 12:45] LABS: HEMATOCRIT 29.4 % (37.0-47.0); HEMOGLOBIN 9.4 g/dl (12.5-16.0); MEAN CORPUSCULAR HEMOGLOBIN 25 pg (27.0-31.0)
[2018-02-11 13:05] LABS: ALBUMIN 2.7 gm/dL (3.5-5.0); BILIRUBIN,TOTAL 0.3 mg/dL (0.0-1.0); CREATININE, serum 0.72 mg/dL (0.52-1.25); MAGNESIUM 2.4 mg/dL (1.6-2.3); PHOSPHOROUS 2.8 mg/dL (2.5-4.5); TOTAL PROTEIN 6.2 gm/dL (6.4-8.2)
[2018-02-11 13:12] LABS: PRE ALBUMIN 7.7 mg/dL (17.6-36.0)
== END ==
LOC: ZCOL.LAB 12:34
PROVIDERS: Surgery Surgical Oncology
DX: C78.6 Secondary malignant neoplasm of retroperitoneum and peritoneum (principal)

== ENCOUNTER → 2018-02-15 | Outpatient (CLI) | payer MEDICARE ==
[2018-02-15 10:52] LABS: BASO % 0.3 % (0.0-2.0); EOS # 0.1 (0.0-0.7); EOS % 1.9 % (0-4.0); GRAN # 3.3 (1.4-6.5); GRAN % 44.7 % (42.2-75.2); LYMPH # 2.9 (1.2-3.4); LYMPH % 39.6 % (20.0-51.0); MEAN CELL VOLUME 82 fl (80.0-100.0); MEAN CORPUSCULAR HGB CONC 32 g/dl (33.0-37.0); MEAN PLATELET VOLUME 11.6 fl (7.4-10.4); MONO % 13.4 % (1.7-9.3); PLATELET COUNT 425 K/mm3 (130-400); RED BLOOD COUNT 3.35 M/mm3 (4.10-5.30); REDCELL DISTRIBUTION WIDTH-CV 21.5 % (11.5-14.5)
[2018-02-15 10:55] LABS: HEMATOCRIT 27.3 % (37.0-47.0); HEMOGLOBIN 8.6 g/dl (12.5-16.0); MEAN CORPUSCULAR HEMOGLOBIN 26 pg (27.0-31.0)
[2018-02-15 11:09] LABS: ALBUMIN 2.4 gm/dL (3.5-5.0); BILIRUBIN,TOTAL 0.3 mg/dL (0.0-1.0); CALCIUM 7.9 mg/dL (8.4-10.2); CREATININE, serum 0.59 mg/dL (0.52-1.25); MAGNESIUM 1.9 mg/dL (1.6-2.3); PHOSPHOROUS 2.3 mg/dL (2.5-4.5); POTASSIUM 4.4 mmol/L (3.4-5.0); TOTAL PROTEIN 5.5 gm/dL (6.4-8.2)
[2018-02-15 11:16] LABS: PRE ALBUMIN 6.2 mg/dL (17.6-36.0)
== END ==
LOC: ZCOL.LAB 10:43
PROVIDERS: Surgery Surgical Oncology
DX: C78.6 Secondary malignant neoplasm of retroperitoneum and peritoneum (principal)

== ENCOUNTER → 2018-02-18 | Outpatient (CLI) | payer MEDICARE ==
[2018-02-18 11:42] LABS: BASO % 0.4 % (0.0-2.0); EOS # 0.1 (0.0-0.7); EOS % 1.9 % (0-4.0); GRAN # 3.2 (1.4-6.5); GRAN % 44.6 % (42.2-75.2); LYMPH # 2.9 (1.2-3.4); LYMPH % 39.8 % (20.0-51.0); MEAN CELL VOLUME 81 fl (80.0-100.0); MEAN CORPUSCULAR HGB CONC 32 g/dl (33.0-37.0); PLATELET COUNT 451 K/mm3 (130-400); RED BLOOD COUNT 3.36 M/mm3 (4.10-5.30); REDCELL DISTRIBUTION WIDTH-CV 20.9 % (11.5-14.5)
[2018-02-18 11:43] LABS: HEMATOCRIT 27.2 % (37.0-47.0); HEMOGLOBIN 8.7 g/dl (12.5-16.0); MEAN CORPUSCULAR HEMOGLOBIN 26 pg (27.0-31.0)
[2018-02-18 12:13] LABS: ALBUMIN 2.5 gm/dL (3.5-5.0); BILIRUBIN,TOTAL 0.2 mg/dL (0.0-1.0); CALCIUM 7.9 mg/dL (8.4-10.2); CREATININE, serum 0.64 mg/dL (0.52-1.25); MAGNESIUM 1.9 mg/dL (1.6-2.3); PHOSPHOROUS 3.3 mg/dL (2.5-4.5); POTASSIUM 4.5 mmol/L (3.4-5.0); TOTAL PROTEIN 5.9 gm/dL (6.4-8.2)
[2018-02-18 13:52] LABS: PRE ALBUMIN 6.6 mg/dL (17.6-36.0)
== END ==
LOC: ZCOL.LAB 11:07
PROVIDERS: Surgery Surgical Oncology
DX: C78.6 Secondary malignant neoplasm of retroperitoneum and peritoneum (principal)

== ENCOUNTER → 2018-02-22 | Outpatient (CLI) | payer MEDICARE ==
[2018-02-22 12:02] LABS: BASO % 0.4 % (0.0-2.0); EOS # 0.1 (0.0-0.7); EOS % 1.2 % (0-4.0); GRAN # 3.6 (1.4-6.5); GRAN % 43.6 % (42.2-75.2); LYMPH # 3.5 (1.2-3.4); LYMPH % 42.1 % (20.0-51.0); MEAN CELL VOLUME 80 fl (80.0-100.0); MEAN CORPUSCULAR HGB CONC 32 g/dl (33.0-37.0); MEAN PLATELET VOLUME 10.8 fl (7.4-10.4); MONO % 12.6 % (1.7-9.3); PLATELET COUNT 614 K/mm3 (130-400); REDCELL DISTRIBUTION WIDTH-CV 20.4 % (11.5-14.5)
[2018-02-22 12:04] LABS: HEMATOCRIT 27.9 % (37.0-47.0); HEMOGLOBIN 8.9 g/dl (12.5-16.0); MEAN CORPUSCULAR HEMOGLOBIN 25 pg (27.0-31.0)
[2018-02-22 12:08] LABS: ALBUMIN 2.5 gm/dL (3.5-5.0); BILIRUBIN,TOTAL 0.5 mg/dL (0.0-1.0); CREATININE, serum 0.55 mg/dL (0.52-1.25); MAGNESIUM 1.8 mg/dL (1.6-2.3); POTASSIUM 4.6 mmol/L (3.4-5.0); TOTAL PROTEIN 5.9 gm/dL (6.4-8.2)
[2018-02-22 12:16] LABS: PRE ALBUMIN 6.1 mg/dL (17.6-36.0)
== END ==
LOC: ZCOL.LAB 11:34
PROVIDERS: Surgery Surgical Oncology
DX: C78.6 Secondary malignant neoplasm of retroperitoneum and peritoneum (principal)

== ENCOUNTER → 2018-03-01 | Outpatient (CLI) | payer MEDICARE ==
[2018-03-01 11:13] LABS: BASO # 0.1 (0.0-0.2); EOS # 0.2 (0.0-0.7); EOS % 2.1 % (0-4.0); GRAN # 2.8 (1.4-6.5); GRAN % 37.8 % (42.2-75.2); HEMATOCRIT 27.5 % (37.0-47.0); HEMOGLOBIN 8.7 g/dl (12.5-16.0); LYMPH # 3.4 (1.2-3.4); LYMPH % 46.2 % (20.0-51.0); MEAN CELL VOLUME 81 fl (80.0-100.0); MEAN CORPUSCULAR HEMOGLOBIN 26 pg (27.0-31.0); MEAN CORPUSCULAR HGB CONC 32 g/dl (33.0-37.0); MEAN PLATELET VOLUME 10.4 fl (7.4-10.4); MONO # 0.9 (0.1-0.6); MONO % 12.6 % (1.7-9.3); PLATELET COUNT 694 K/mm3 (130-400); RED BLOOD COUNT 3.39 M/mm3 (4.10-5.30); REDCELL DISTRIBUTION WIDTH-CV 19.8 % (11.5-14.5)
[2018-03-01 11:34] LABS: ALBUMIN 2.6 gm/dL (3.5-5.0); BILIRUBIN,TOTAL 0.4 mg/dL (0.0-1.0); CALCIUM 8.2 mg/dL (8.4-10.2); CREATININE, serum 0.58 mg/dL (0.52-1.25); MAGNESIUM 1.9 mg/dL (1.6-2.3); PHOSPHOROUS 3.1 mg/dL (2.5-4.5); POTASSIUM 4.9 mmol/L (3.4-5.0); TOTAL PROTEIN 6.2 gm/dL (6.4-8.2)
[2018-03-01 11:45] LABS: PRE ALBUMIN 5.8 mg/dL (17.6-36.0)
== END ==
LOC: ZCOL.LAB 11:07
PROVIDERS: Surgery Surgical Oncology
DX: C78.6 Secondary malignant neoplasm of retroperitoneum and peritoneum (principal)

== ENCOUNTER → 2018-03-04 | Outpatient (CLI) | payer MEDICARE ==
[2018-03-04 12:34] LABS: ALBUMIN 2.8 gm/dL (3.5-5.0); BILIRUBIN,TOTAL 0.3 mg/dL (0.0-1.0); CALCIUM 8.1 mg/dL (8.4-10.2); CREATININE, serum 0.58 mg/dL (0.52-1.25); MAGNESIUM 2.1 mg/dL (1.6-2.3); PHOSPHOROUS 3.7 mg/dL (2.5-4.5); POTASSIUM 4.5 mmol/L (3.4-5.0); TOTAL PROTEIN 6.6 gm/dL (6.4-8.2)
== END ==
LOC: ZCOL.LAB 11:35
PROVIDERS: Surgery Surgical Oncology
DX: C78.6 Secondary malignant neoplasm of retroperitoneum and peritoneum (principal)

== ENCOUNTER → 2018-03-08 | Outpatient (CLI) | payer MEDICARE ==
[2018-03-08 13:27] LABS: BASO % 0.6 % (0.0-2.0); EOS # 0.1 (0.0-0.7); GRAN # 2.8 (1.4-6.5); GRAN % 39.7 % (42.2-75.2); LYMPH # 3.2 (1.2-3.4); LYMPH % 45.6 % (20.0-51.0); MEAN CELL VOLUME 81 fl (80.0-100.0); MEAN CORPUSCULAR HGB CONC 31 g/dl (33.0-37.0); MEAN PLATELET VOLUME 10.5 fl (7.4-10.4); MONO # 0.8 (0.1-0.6); PLATELET COUNT 702 K/mm3 (130-400); RED BLOOD COUNT 3.46 M/mm3 (4.10-5.30); REDCELL DISTRIBUTION WIDTH-CV 19.9 % (11.5-14.5)
[2018-03-08 13:32] LABS: HEMOGLOBIN 8.7 g/dl (12.5-16.0); MEAN CORPUSCULAR HEMOGLOBIN 25 pg (27.0-31.0)
[2018-03-08 13:36] LABS: ALBUMIN 2.7 gm/dL (3.5-5.0); BILIRUBIN,TOTAL 0.4 mg/dL (0.0-1.0); CALCIUM 8.3 mg/dL (8.4-10.2); CREATININE, serum 0.56 mg/dL (0.52-1.25); MAGNESIUM 2.1 mg/dL (1.6-2.3); PHOSPHOROUS 3.3 mg/dL (2.5-4.5); TOTAL PROTEIN 6.4 gm/dL (6.4-8.2)
[2018-03-08 13:43] LABS: PRE ALBUMIN 7.1 mg/dL (17.6-36.0)
== END ==
LOC: ZCOL.LAB 13:14
PROVIDERS: Surgery Surgical Oncology
DX: C78.6 Secondary malignant neoplasm of retroperitoneum and peritoneum (principal)

== ENCOUNTER → 2018-03-15 | Outpatient (CLI) | payer MEDICARE ==
[2018-03-15 12:26] LABS: BASO # 0.1 (0.0-0.2); BASO % 0.7 % (0.0-2.0); EOS # 0.1 (0.0-0.7); EOS % 1.5 % (0-4.0); GRAN # 2.7 (1.4-6.5); GRAN % 35.6 % (42.2-75.2); LYMPH # 3.7 (1.2-3.4); LYMPH % 49.5 % (20.0-51.0); MEAN CELL VOLUME 79 fl (80.0-100.0); MEAN CORPUSCULAR HGB CONC 32 g/dl (33.0-37.0); MEAN PLATELET VOLUME 10.3 fl (7.4-10.4); MONO % 12.6 % (1.7-9.3); PLATELET COUNT 674 K/mm3 (130-400); RED BLOOD COUNT 3.39 M/mm3 (4.10-5.30); REDCELL DISTRIBUTION WIDTH-CV 19.6 % (11.5-14.5)
[2018-03-15 12:32] LABS: HEMATOCRIT 26.9 % (37.0-47.0); HEMOGLOBIN 8.6 g/dl (12.5-16.0); MEAN CORPUSCULAR HEMOGLOBIN 25 pg (27.0-31.0)
[2018-03-15 12:42] LABS: ALBUMIN 2.7 gm/dL (3.5-5.0); BILIRUBIN,TOTAL 0.5 mg/dL (0.0-1.0); CALCIUM 8.3 mg/dL (8.4-10.2); CREATININE, serum 0.58 mg/dL (0.52-1.25); PHOSPHOROUS 3.8 mg/dL (2.5-4.5); POTASSIUM 4.3 mmol/L (3.4-5.0); TOTAL PROTEIN 6.5 gm/dL (6.4-8.2)
== END ==
LOC: ZCOL.LAB 12:18
PROVIDERS: Surgery Surgical Oncology
DX: C78.6 Secondary malignant neoplasm of retroperitoneum and peritoneum (principal)

== ENCOUNTER → 2018-03-22 | Outpatient (CLI) | payer MEDICARE ==
[2018-03-22 12:37] LABS: BASO # 0.1 (0.0-0.2); BASO % 0.8 % (0.0-2.0); EOS # 0.1 (0.0-0.7); EOS % 1.6 % (0-4.0); GRAN # 2.9 (1.4-6.5); GRAN % 38.2 % (42.2-75.2); LYMPH # 3.5 (1.2-3.4); MEAN CELL VOLUME 80 fl (80.0-100.0); MEAN CORPUSCULAR HGB CONC 33 g/dl (33.0-37.0); MEAN PLATELET VOLUME 10.2 fl (7.4-10.4); MONO % 13.3 % (1.7-9.3); PLATELET COUNT 686 K/mm3 (130-400); RED BLOOD COUNT 3.31 M/mm3 (4.10-5.30); REDCELL DISTRIBUTION WIDTH-CV 19.4 % (11.5-14.5)
[2018-03-22 12:38] LABS: HEMATOCRIT 26.4 % (37.0-47.0); HEMOGLOBIN 8.7 g/dl (12.5-16.0); MEAN CORPUSCULAR HEMOGLOBIN 26 pg (27.0-31.0)
[2018-03-22 12:45] LABS: ALBUMIN 2.7 gm/dL (3.5-5.0); BILIRUBIN,TOTAL 0.5 mg/dL (0.0-1.0); CALCIUM 8.5 mg/dL (8.4-10.2); CREATININE, serum 0.65 mg/dL (0.52-1.25); PHOSPHOROUS 4.1 mg/dL (2.5-4.5); POTASSIUM 4.2 mmol/L (3.4-5.0); TOTAL PROTEIN 6.5 gm/dL (6.4-8.2)
[2018-03-22 12:52] LABS: PRE ALBUMIN 8.9 mg/dL (17.6-36.0)
== END ==
LOC: ZCOL.LAB 12:10
PROVIDERS: Family Medicine
DX: C78.6 Secondary malignant neoplasm of retroperitoneum and peritoneum (principal)

== ENCOUNTER → 2018-03-29 | Outpatient (CLI) | payer MEDICARE ==
[2018-03-29 12:06] LABS: BILIRUBIN,TOTAL 0.6 mg/dL (0.0-1.0); CALCIUM 8.7 mg/dL (8.4-10.2); CREATININE, serum 0.8 mg/dL (0.52-1.25); MAGNESIUM 2.2 mg/dL (1.6-2.3); PHOSPHOROUS 3.9 mg/dL (2.5-4.5); POTASSIUM 4.3 mmol/L (3.4-5.0)
[2018-03-29 12:07] LABS: BASO # 0.1 (0.0-0.2); BASO % 0.7 % (0.0-2.0); EOS # 0.1 (0.0-0.7); EOS % 1.2 % (0-4.0); GRAN # 3.2 (1.4-6.5); GRAN % 44.1 % (42.2-75.2); HEMATOCRIT 28.8 % (37.0-47.0); HEMOGLOBIN 9.1 g/dl (12.5-16.0); LYMPH # 2.9 (1.2-3.4); LYMPH % 40.3 % (20.0-51.0); MEAN CELL VOLUME 82 fl (80.0-100.0); MEAN CORPUSCULAR HEMOGLOBIN 26 pg (27.0-31.0); MEAN CORPUSCULAR HGB CONC 32 g/dl (33.0-37.0); MONO % 13.6 % (1.7-9.3); PLATELET COUNT 686 K/mm3 (130-400); REDCELL DISTRIBUTION WIDTH-CV 19.2 % (11.5-14.5)
[2018-03-29 12:15] LABS: PRE ALBUMIN 9.6 mg/dL (17.6-36.0)
== END ==
LOC: ZCOL.LAB 11:45
PROVIDERS: Surgery Surgical Oncology
DX: C78.6 Secondary malignant neoplasm of retroperitoneum and peritoneum (principal)

== ENCOUNTER → 2018-04-05 | Outpatient (CLI) | payer MEDICARE ==
[2018-04-05 13:27] LABS: BASO % 0.4 % (0.0-2.0); EOS # 0.1 (0.0-0.7); EOS % 0.5 % (0-4.0); GRAN # 5.1 (1.4-6.5); GRAN % 54.2 % (42.2-75.2); LYMPH # 3.3 (1.2-3.4); LYMPH % 35.5 % (20.0-51.0); MEAN CELL VOLUME 81 fl (80.0-100.0); MEAN CORPUSCULAR HGB CONC 32 g/dl (33.0-37.0); MEAN PLATELET VOLUME 10.6 fl (7.4-10.4); MONO # 0.9 (0.1-0.6); MONO % 9.2 % (1.7-9.3); PLATELET COUNT 654 K/mm3 (130-400); RED BLOOD COUNT 3.69 M/mm3 (4.10-5.30); REDCELL DISTRIBUTION WIDTH-CV 18.9 % (11.5-14.5)
[2018-04-05 13:29] LABS: HEMATOCRIT 29.9 % (37.0-47.0); HEMOGLOBIN 9.5 g/dl (12.5-16.0); MEAN CORPUSCULAR HEMOGLOBIN 26 pg (27.0-31.0)
[2018-04-05 13:51] LABS: BILIRUBIN,TOTAL 0.5 mg/dL (0.0-1.0); CALCIUM 8.6 mg/dL (8.4-10.2); CREATININE, serum 0.71 mg/dL (0.52-1.25); MAGNESIUM 2.2 mg/dL (1.6-2.3); PHOSPHOROUS 3.9 mg/dL (2.5-4.5); POTASSIUM 4.4 mmol/L (3.4-5.0); TOTAL PROTEIN 7.4 gm/dL (6.4-8.2)
[2018-04-05 13:58] LABS: PRE ALBUMIN 8.9 mg/dL (17.6-36.0)
== END ==
LOC: ZCOL.LAB 13:13
PROVIDERS: Surgery Surgical Oncology
DX: C78.6 Secondary malignant neoplasm of retroperitoneum and peritoneum (principal)

== ENCOUNTER 2018-04-06 18:36 | Emergency (ER) | payer MEDICARE ==
[~2018-04-06] VITALS: Ht 167.6 cm; Wt 58.6 kg
[2018-04-06 18:37] VITALS: BP 135/62; TEMP 98.2
[2018-04-06 22:53] LABS: CALCIUM 8.1 mg/dL (8.4-10.2); CREATININE, serum 0.71 mg/dL (0.52-1.25); POTASSIUM 3.2 mmol/L (3.4-5.0)
[2018-04-06 23:40] VITALS: PULSE 72
== END 2018-04-06 23:40 | disposition home or self-care (01) ==
LOC: COL.ER 18:36
PROVIDERS: Emergency Medicine
DX: E87.8 Other disorders of electrolyte and fluid balance, not elsewhere classified (principal); E86.0 Dehydration; E87.6 Hypokalemia; Z90.710 Acquired absence of both cervix and uterus; Z85.520 Personal history of malignant carcinoid tumor of kidney; Z79.01 Long term (current) use of anticoagulants
CPT/HCPCS: A4217; J7030; J7131

== ENCOUNTER → 2018-04-07 | Outpatient (CLI) | payer MEDICARE ==
[2018-04-07 15:36] LABS: BILIRUBIN,TOTAL 0.6 mg/dL (0.0-1.0); CALCIUM 8.6 mg/dL (8.4-10.2); CREATININE, serum 0.76 mg/dL (0.52-1.25); MAGNESIUM 1.9 mg/dL (1.6-2.3); PHOSPHOROUS 3.5 mg/dL (2.5-4.5); POTASSIUM 3.1 mmol/L (3.4-5.0); TOTAL PROTEIN 7.1 gm/dL (6.4-8.2)
== END ==
LOC: ZCOL.LAB 15:15
PROVIDERS: Surgery Surgical Oncology
DX: C78.6 Secondary malignant neoplasm of retroperitoneum and peritoneum (principal)

== ENCOUNTER → 2018-04-08 | Outpatient (CLI) | payer MEDICARE ==
[~2018-04-08] VITALS: Ht 167.6 cm; Wt 60.0 kg
[2018-04-08 17:21] LABS: CALCIUM 8.3 mg/dL (8.4-10.2); CREATININE, serum 0.69 mg/dL (0.52-1.25); PHOSPHOROUS 2.8 mg/dL (2.5-4.5); POTASSIUM 3.9 mmol/L (3.4-5.0)
== END ==
LOC: EUO 13:18
PROVIDERS: Family Medicine
DX: E87.6 Hypokalemia (principal)
CPT/HCPCS: J3480

== ENCOUNTER → 2018-04-12 | Outpatient (CLI) | payer MEDICARE ==
[2018-04-12 16:49] LABS: BASO % 0.4 % (0.0-2.0); EOS # 0.1 (0.0-0.7); EOS % 1.5 % (0-4.0); GRAN # 5.4 (1.4-6.5); GRAN % 59.3 % (42.2-75.2); LYMPH # 2.7 (1.2-3.4); LYMPH % 29.3 % (20.0-51.0); MEAN CELL VOLUME 80 fl (80.0-100.0); MEAN CORPUSCULAR HGB CONC 32 g/dl (33.0-37.0); MEAN PLATELET VOLUME 10.3 fl (7.4-10.4); MONO # 0.9 (0.1-0.6); MONO % 9.4 % (1.7-9.3); PLATELET COUNT 673 K/mm3 (130-400); RED BLOOD COUNT 3.76 M/mm3 (4.10-5.30); REDCELL DISTRIBUTION WIDTH-CV 18.6 % (11.5-14.5)
[2018-04-12 16:51] LABS: HEMATOCRIT 30.1 % (37.0-47.0); HEMOGLOBIN 9.6 g/dl (12.5-16.0); MEAN CORPUSCULAR HEMOGLOBIN 26 pg (27.0-31.0)
[2018-04-12 17:10] LABS: BILIRUBIN,TOTAL 0.2 mg/dL (0.0-1.0); CALCIUM 8.4 mg/dL (8.4-10.2); CREATININE, serum 0.68 mg/dL (0.52-1.25); PHOSPHOROUS 3.8 mg/dL (2.5-4.5); POTASSIUM 3.9 mmol/L (3.4-5.0); TOTAL PROTEIN 7.1 gm/dL (6.4-8.2)
[2018-04-12 17:18] LABS: PRE ALBUMIN 9.5 mg/dL (17.6-36.0)
== END ==
LOC: ZCOL.LAB 16:40
PROVIDERS: Emergency Medicine
DX: C78.6 Secondary malignant neoplasm of retroperitoneum and peritoneum (principal)

== ENCOUNTER → 2018-04-19 | Outpatient (CLI) | payer MEDICARE ==
[2018-04-19 16:23] LABS: BASO # 0.1 (0.0-0.2); BASO % 0.6 % (0.0-2.0); EOS # 0.1 (0.0-0.7); EOS % 1.3 % (0-4.0); GRAN # 4.7 (1.4-6.5); GRAN % 53.7 % (42.2-75.2); LYMPH # 2.9 (1.2-3.4); LYMPH % 33.2 % (20.0-51.0); MEAN CELL VOLUME 80 fl (80.0-100.0); MEAN CORPUSCULAR HGB CONC 32 g/dl (33.0-37.0); MONO % 10.9 % (1.7-9.3); PLATELET COUNT 710 K/mm3 (130-400); RED BLOOD COUNT 3.67 M/mm3 (4.10-5.30); REDCELL DISTRIBUTION WIDTH-CV 18.1 % (11.5-14.5)
[2018-04-19 16:27] LABS: HEMATOCRIT 29.2 % (37.0-47.0); HEMOGLOBIN 9.4 g/dl (12.5-16.0); MEAN CORPUSCULAR HEMOGLOBIN 26 pg (27.0-31.0)
[2018-04-19 16:37] LABS: ALBUMIN 2.8 gm/dL (3.5-5.0); BILIRUBIN,TOTAL 0.2 mg/dL (0.0-1.0); CALCIUM 8.4 mg/dL (8.4-10.2); CREATININE, serum 0.7 mg/dL (0.52-1.25); MAGNESIUM 2.2 mg/dL (1.6-2.3); PHOSPHOROUS 4.1 mg/dL (2.5-4.5); POTASSIUM 4.1 mmol/L (3.4-5.0); TOTAL PROTEIN 6.5 gm/dL (6.4-8.2)
[2018-04-19 16:43] LABS: PRE ALBUMIN 8.3 mg/dL (17.6-36.0)
== END ==
LOC: ZCOL.LAB 16:13
PROVIDERS: Surgery Surgical Oncology
DX: C78.6 Secondary malignant neoplasm of retroperitoneum and peritoneum (principal)

== ENCOUNTER → 2018-04-26 | Outpatient (CLI) | payer MEDICARE ==
[2018-04-26 14:12] LABS: BASO # 0.1 (0.0-0.2); BASO % 0.7 % (0.0-2.0); EOS # 0.2 (0.0-0.7); GRAN # 4.1 (1.4-6.5); GRAN % 53.8 % (42.2-75.2); LYMPH # 2.4 (1.2-3.4); LYMPH % 31.8 % (20.0-51.0); MEAN CELL VOLUME 79 fl (80.0-100.0); MEAN CORPUSCULAR HGB CONC 32 g/dl (33.0-37.0); MEAN PLATELET VOLUME 10.1 fl (7.4-10.4); MONO # 0.9 (0.1-0.6); MONO % 11.4 % (1.7-9.3); PLATELET COUNT 688 K/mm3 (130-400); RED BLOOD COUNT 3.55 M/mm3 (4.10-5.30); REDCELL DISTRIBUTION WIDTH-CV 17.8 % (11.5-14.5)
[2018-04-26 14:14] LABS: HEMATOCRIT 28.2 % (37.0-47.0); HEMOGLOBIN 8.9 g/dl (12.5-16.0); MEAN CORPUSCULAR HEMOGLOBIN 25 pg (27.0-31.0)
[2018-04-26 14:18] LABS: ALBUMIN 2.7 gm/dL (3.5-5.0); BILIRUBIN,TOTAL 0.3 mg/dL (0.0-1.0); CALCIUM 8.2 mg/dL (8.4-10.2); CREATININE, serum 0.66 mg/dL (0.52-1.25); PHOSPHOROUS 3.9 mg/dL (2.5-4.5); POTASSIUM 4.1 mmol/L (3.4-5.0); TOTAL PROTEIN 6.3 gm/dL (6.4-8.2)
[2018-04-26 14:49] LABS: PRE ALBUMIN 7.5 mg/dL (17.6-36.0)
== END ==
LOC: ZCOL.LAB 14:04
PROVIDERS: Surgery Surgical Oncology
DX: C78.6 Secondary malignant neoplasm of retroperitoneum and peritoneum (principal)

== ENCOUNTER → 2018-05-03 | Outpatient (CLI) | payer MEDICARE ==
[2018-05-03 13:31] LABS: ALBUMIN 2.8 gm/dL (3.5-5.0); BILIRUBIN,TOTAL 0.3 mg/dL (0.0-1.0); CALCIUM 8.4 mg/dL (8.4-10.2); CREATININE, serum 0.63 mg/dL (0.52-1.25); PHOSPHOROUS 3.7 mg/dL (2.5-4.5); POTASSIUM 4.5 mmol/L (3.4-5.0); TOTAL PROTEIN 6.4 gm/dL (6.4-8.2)
[2018-05-03 13:35] LABS: BASO # 0.1 (0.0-0.2); BASO % 0.5 % (0.0-2.0); EOS # 0.2 (0.0-0.7); EOS % 1.9 % (0-4.0); GRAN # 4.5 (1.4-6.5); GRAN % 48.7 % (42.2-75.2); LYMPH # 3.4 (1.2-3.4); LYMPH % 36.2 % (20.0-51.0); MEAN CELL VOLUME 80 fl (80.0-100.0); MEAN CORPUSCULAR HGB CONC 31 g/dl (33.0-37.0); MEAN PLATELET VOLUME 10.1 fl (7.4-10.4); MONO # 1.2 (0.1-0.6); MONO % 12.5 % (1.7-9.3); PLATELET COUNT 761 K/mm3 (130-400); RED BLOOD COUNT 3.61 M/mm3 (4.10-5.30); REDCELL DISTRIBUTION WIDTH-CV 17.4 % (11.5-14.5)
[2018-05-03 13:36] LABS: HEMOGLOBIN 9.1 g/dl (12.5-16.0); MEAN CORPUSCULAR HEMOGLOBIN 25 pg (27.0-31.0)
[2018-05-03 13:38] LABS: PRE ALBUMIN 7.2 mg/dL (17.6-36.0)
== END ==
LOC: ZCOL.LAB 13:05
PROVIDERS: Surgery Surgical Oncology
DX: C78.6 Secondary malignant neoplasm of retroperitoneum and peritoneum (principal)

== ENCOUNTER → 2018-05-10 | Outpatient (CLI) | payer MEDICARE ==
[2018-05-10 11:45] LABS: BASO # 0.1 (0.0-0.2); BASO % 0.7 % (0.0-2.0); EOS # 0.2 (0.0-0.7); EOS % 1.8 % (0-4.0); GRAN # 3.7 (1.4-6.5); GRAN % 40.3 % (42.2-75.2); LYMPH # 4.1 (1.2-3.4); LYMPH % 45.5 % (20.0-51.0); MEAN CELL VOLUME 80 fl (80.0-100.0); MEAN CORPUSCULAR HGB CONC 31 g/dl (33.0-37.0); MEAN PLATELET VOLUME 10.2 fl (7.4-10.4); MONO % 11.5 % (1.7-9.3); PLATELET COUNT 746 K/mm3 (130-400); REDCELL DISTRIBUTION WIDTH-CV 17.2 % (11.5-14.5)
[2018-05-10 11:46] LABS: HEMATOCRIT 28.1 % (37.0-47.0); HEMOGLOBIN 8.8 g/dl (12.5-16.0); MEAN CORPUSCULAR HEMOGLOBIN 25 pg (27.0-31.0)
[2018-05-10 11:47] LABS: ALBUMIN 2.8 gm/dL (3.5-5.0); BILIRUBIN,TOTAL 0.3 mg/dL (0.0-1.0); CALCIUM 8.4 mg/dL (8.4-10.2); CREATININE, serum 0.67 mg/dL (0.52-1.25); MAGNESIUM 2.1 mg/dL (1.6-2.3); PHOSPHOROUS 3.7 mg/dL (2.5-4.5); POTASSIUM 4.5 mmol/L (3.4-5.0); TOTAL PROTEIN 6.4 gm/dL (6.4-8.2)
[2018-05-10 11:55] LABS: PRE ALBUMIN 7.7 mg/dL (17.6-36.0)
== END ==
LOC: ZCOL.LAB 11:20
PROVIDERS: Surgery Surgical Oncology
DX: C78.6 Secondary malignant neoplasm of retroperitoneum and peritoneum (principal)

== ENCOUNTER → 2018-05-17 | Outpatient (CLI) | payer MEDICARE ==
[2018-05-17 13:31] LABS: BASO # 0.1 (0.0-0.2); BASO % 0.5 % (0.0-2.0); EOS # 0.1 (0.0-0.7); EOS % 1.4 % (0-4.0); GRAN # 4.3 (1.4-6.5); GRAN % 46.4 % (42.2-75.2); HEMATOCRIT 28.4 % (37.0-47.0); LYMPH # 3.6 (1.2-3.4); LYMPH % 39.2 % (20.0-51.0); MEAN CELL VOLUME 80 fl (80.0-100.0); MEAN CORPUSCULAR HEMOGLOBIN 25 pg (27.0-31.0); MEAN CORPUSCULAR HGB CONC 32 g/dl (33.0-37.0); MEAN PLATELET VOLUME 10.1 fl (7.4-10.4); MONO # 1.1 (0.1-0.6); MONO % 12.3 % (1.7-9.3); PLATELET COUNT 681 K/mm3 (130-400); RED BLOOD COUNT 3.57 M/mm3 (4.10-5.30); REDCELL DISTRIBUTION WIDTH-CV 17.2 % (11.5-14.5)
[2018-05-17 13:45] LABS: ALBUMIN 2.9 gm/dL (3.5-5.0); BILIRUBIN,TOTAL 0.2 mg/dL (0.0-1.0); CALCIUM 8.3 mg/dL (8.4-10.2); CREATININE, serum 0.68 mg/dL (0.52-1.25); MAGNESIUM 2.1 mg/dL (1.6-2.3); PHOSPHOROUS 3.8 mg/dL (2.5-4.5); POTASSIUM 4.6 mmol/L (3.4-5.0); TOTAL PROTEIN 6.6 gm/dL (6.4-8.2)
[2018-05-17 13:51] LABS: PRE ALBUMIN 8.4 mg/dL (17.6-36.0)
== END ==
LOC: ZCOL.LAB 13:20
PROVIDERS: Surgery Surgical Oncology
DX: C78.6 Secondary malignant neoplasm of retroperitoneum and peritoneum (principal)

== ENCOUNTER → 2018-05-24 | Outpatient (CLI) | payer MEDICARE ==
[2018-05-24 11:40] LABS: BASO % 0.3 % (0.0-2.0); EOS # 0.2 (0.0-0.7); EOS % 2.3 % (0-4.0); GRAN # 5.1 (1.4-6.5); LYMPH # 3.1 (1.2-3.4); LYMPH % 32.4 % (20.0-51.0); MEAN CELL VOLUME 79 fl (80.0-100.0); MEAN CORPUSCULAR HGB CONC 32 g/dl (33.0-37.0); MEAN PLATELET VOLUME 10.2 fl (7.4-10.4); MONO % 10.7 % (1.7-9.3); PLATELET COUNT 674 K/mm3 (130-400); REDCELL DISTRIBUTION WIDTH-CV 17.3 % (11.5-14.5)
[2018-05-24 11:41] LABS: HEMATOCRIT 28.4 % (37.0-47.0); HEMOGLOBIN 9.1 g/dl (12.5-16.0); MEAN CORPUSCULAR HEMOGLOBIN 25 pg (27.0-31.0)
[2018-05-24 12:00] LABS: BILIRUBIN,TOTAL 0.2 mg/dL (0.0-1.0); CALCIUM 8.3 mg/dL (8.4-10.2); CREATININE, serum 0.61 mg/dL (0.52-1.25); MAGNESIUM 2.1 mg/dL (1.6-2.3); PHOSPHOROUS 3.8 mg/dL (2.5-4.5); POTASSIUM 4.4 mmol/L (3.4-5.0); TOTAL PROTEIN 6.6 gm/dL (6.4-8.2)
[2018-05-24 12:07] LABS: PRE ALBUMIN 8.6 mg/dL (17.6-36.0)
== END ==
LOC: ZCOL.LAB 11:34
PROVIDERS: Surgery Surgical Oncology
DX: C78.6 Secondary malignant neoplasm of retroperitoneum and peritoneum (principal)

== ENCOUNTER → 2018-05-31 | Outpatient (CLI) | payer MEDICARE ==
[2018-05-31 14:37] LABS: BASO # 0.1 (0.0-0.2); BASO % 0.6 % (0.0-2.0); EOS # 0.2 (0.0-0.7); GRAN # 5.9 (1.4-6.5); GRAN % 63.4 % (42.2-75.2); LYMPH # 2.4 (1.2-3.4); LYMPH % 25.3 % (20.0-51.0); MEAN CELL VOLUME 79 fl (80.0-100.0); MEAN CORPUSCULAR HGB CONC 31 g/dl (33.0-37.0); MEAN PLATELET VOLUME 10.1 fl (7.4-10.4); MONO # 0.8 (0.1-0.6); MONO % 8.4 % (1.7-9.3); PLATELET COUNT 699 K/mm3 (130-400); RED BLOOD COUNT 3.92 M/mm3 (4.10-5.30); REDCELL DISTRIBUTION WIDTH-CV 17.5 % (11.5-14.5)
[2018-05-31 14:40] LABS: HEMATOCRIT 30.9 % (37.0-47.0); HEMOGLOBIN 9.7 g/dl (12.5-16.0); MEAN CORPUSCULAR HEMOGLOBIN 25 pg (27.0-31.0)
[2018-05-31 14:50] LABS: ALBUMIN 3.2 gm/dL (3.5-5.0); BILIRUBIN,TOTAL 0.3 mg/dL (0.0-1.0); CALCIUM 8.7 mg/dL (8.4-10.2); CREATININE, serum 0.67 mg/dL (0.52-1.25); MAGNESIUM 2.2 mg/dL (1.6-2.3); PHOSPHOROUS 3.9 mg/dL (2.5-4.5); POTASSIUM 4.3 mmol/L (3.4-5.0); TOTAL PROTEIN 7.3 gm/dL (6.4-8.2)
[2018-05-31 14:56] LABS: PRE ALBUMIN 10.7 mg/dL (17.6-36.0)
== END ==
LOC: ZCOL.LAB 13:51
PROVIDERS: Emergency Medicine
DX: C78.6 Secondary malignant neoplasm of retroperitoneum and peritoneum (principal)

== ENCOUNTER → 2018-06-07 | Outpatient (CLI) | payer MEDICARE ==
[2018-06-07 15:45] LABS: BASO # 0.1 (0.0-0.2); BASO % 0.7 % (0.0-2.0); EOS # 0.3 (0.0-0.7); EOS % 3.4 % (0-4.0); GRAN # 5.1 (1.4-6.5); GRAN % 55.5 % (42.2-75.2); LYMPH # 2.7 (1.2-3.4); LYMPH % 29.6 % (20.0-51.0); MEAN CELL VOLUME 78 fl (80.0-100.0); MEAN CORPUSCULAR HGB CONC 32 g/dl (33.0-37.0); MEAN PLATELET VOLUME 10.3 fl (7.4-10.4); MONO % 10.5 % (1.7-9.3); PLATELET COUNT 671 K/mm3 (130-400); RED BLOOD COUNT 3.68 M/mm3 (4.10-5.30); REDCELL DISTRIBUTION WIDTH-CV 17.2 % (11.5-14.5)
[2018-06-07 15:46] LABS: HEMATOCRIT 28.8 % (37.0-47.0); HEMOGLOBIN 9.3 g/dl (12.5-16.0); MEAN CORPUSCULAR HEMOGLOBIN 25 pg (27.0-31.0)
[2018-06-07 15:59] LABS: ALBUMIN 2.9 gm/dL (3.5-5.0); BILIRUBIN,TOTAL 0.2 mg/dL (0.0-1.0); CALCIUM 8.3 mg/dL (8.4-10.2); CREATININE, serum 0.61 mg/dL (0.52-1.25); MAGNESIUM 2.1 mg/dL (1.6-2.3); PHOSPHOROUS 3.3 mg/dL (2.5-4.5); POTASSIUM 3.8 mmol/L (3.4-5.0); TOTAL PROTEIN 6.6 gm/dL (6.4-8.2)
[2018-06-07 16:05] LABS: PRE ALBUMIN 9.6 mg/dL (17.6-36.0)
== END ==
LOC: ZCOL.LAB 15:34
PROVIDERS: Surgery Surgical Oncology
DX: C78.6 Secondary malignant neoplasm of retroperitoneum and peritoneum (principal)

== ENCOUNTER → 2018-06-14 | Outpatient (CLI) | payer MEDICARE ==
[2018-06-14 12:38] LABS: BASO # 0.1 (0.0-0.2); BASO % 0.8 % (0.0-2.0); EOS # 0.2 (0.0-0.7); EOS % 2.6 % (0-4.0); GRAN # 4.7 (1.4-6.5); GRAN % 55.2 % (42.2-75.2); HEMATOCRIT 28.2 % (37.0-47.0); LYMPH # 2.6 (1.2-3.4); LYMPH % 30.7 % (20.0-51.0); MEAN CELL VOLUME 79 fl (80.0-100.0); MEAN CORPUSCULAR HEMOGLOBIN 25 pg (27.0-31.0); MEAN CORPUSCULAR HGB CONC 32 g/dl (33.0-37.0); MEAN PLATELET VOLUME 10.2 fl (7.4-10.4); MONO # 0.9 (0.1-0.6); MONO % 10.6 % (1.7-9.3); PLATELET COUNT 633 K/mm3 (130-400); RED BLOOD COUNT 3.59 M/mm3 (4.10-5.30); REDCELL DISTRIBUTION WIDTH-CV 17.4 % (11.5-14.5)
[2018-06-14 12:47] LABS: ALBUMIN 2.7 gm/dL (3.5-5.0); BILIRUBIN,TOTAL 0.3 mg/dL (0.0-1.0); CALCIUM 8.3 mg/dL (8.4-10.2); CREATININE, serum 0.6 mg/dL (0.52-1.25); MAGNESIUM 2.2 mg/dL (1.6-2.3); PHOSPHOROUS 3.3 mg/dL (2.5-4.5); POTASSIUM 4.1 mmol/L (3.4-5.0); TOTAL PROTEIN 6.3 gm/dL (6.4-8.2)
[2018-06-14 12:54] LABS: PRE ALBUMIN 8.5 mg/dL (17.6-36.0)
== END ==
LOC: ZCOL.LAB 12:18
PROVIDERS: Surgery Surgical Oncology
DX: C78.6 Secondary malignant neoplasm of retroperitoneum and peritoneum (principal); K65.8 Other peritonitis; B96.5 Pseudomonas (aeruginosa) (mallei) (pseudomallei) as the cause of diseases classified elsewhere

== ENCOUNTER → 2018-06-21 | Outpatient (CLI) | payer MEDICARE ==
[2018-06-21 13:03] LABS: BASO % 0.3 % (0.0-2.0); EOS # 0.3 (0.0-0.7); EOS % 3.8 % (0-4.0); GRAN # 3.9 (1.4-6.5); GRAN % 49.5 % (42.2-75.2); LYMPH # 2.7 (1.2-3.4); LYMPH % 34.5 % (20.0-51.0); MEAN CELL VOLUME 79 fl (80.0-100.0); MEAN CORPUSCULAR HGB CONC 31 g/dl (33.0-37.0); MEAN PLATELET VOLUME 10.6 fl (7.4-10.4); MONO # 0.9 (0.1-0.6); MONO % 11.6 % (1.7-9.3); PLATELET COUNT 613 K/mm3 (130-400); RED BLOOD COUNT 3.43 M/mm3 (4.10-5.30)
[2018-06-21 13:04] LABS: HEMATOCRIT 27.2 % (37.0-47.0); HEMOGLOBIN 8.5 g/dl (12.5-16.0); MEAN CORPUSCULAR HEMOGLOBIN 25 pg (27.0-31.0)
[2018-06-21 13:18] LABS: ALBUMIN 2.6 gm/dL (3.5-5.0); BILIRUBIN,TOTAL 0.2 mg/dL (0.0-1.0); CALCIUM 7.9 mg/dL (8.4-10.2); CREATININE, serum 0.6 mg/dL (0.52-1.25); PHOSPHOROUS 3.3 mg/dL (2.5-4.5); POTASSIUM 4.2 mmol/L (3.4-5.0)
[2018-06-21 13:25] LABS: PRE ALBUMIN 7.6 mg/dL (17.6-36.0)
== END ==
LOC: ZCOL.LAB 12:47
PROVIDERS: Surgery Surgical Oncology
DX: C78.6 Secondary malignant neoplasm of retroperitoneum and peritoneum (principal); C80.1 Malignant (primary) neoplasm, unspecified

== ENCOUNTER → 2018-06-28 | Outpatient (CLI) | payer MEDICARE ==
[2018-06-28 17:02] LABS: ALBUMIN 2.7 gm/dL (3.5-5.0); BILIRUBIN,TOTAL 0.2 mg/dL (0.0-1.0); CREATININE, serum 0.59 mg/dL (0.52-1.25); PHOSPHOROUS 3.3 mg/dL (2.5-4.5); POTASSIUM 3.8 mmol/L (3.4-5.0); PRE ALBUMIN 7.7 mg/dL (17.6-36.0); TOTAL PROTEIN 6.3 gm/dL (6.4-8.2)
[2018-06-28 17:04] LABS: BASO % 0.4 % (0.0-2.0); EOS # 0.3 (0.0-0.7); EOS % 3.6 % (0-4.0); GRAN # 4.6 (1.4-6.5); GRAN % 50.2 % (42.2-75.2); LYMPH # 3.2 (1.2-3.4); MEAN CELL VOLUME 79 fl (80.0-100.0); MEAN CORPUSCULAR HGB CONC 31 g/dl (33.0-37.0); MEAN PLATELET VOLUME 10.5 fl (7.4-10.4); MONO % 10.6 % (1.7-9.3); PLATELET COUNT 694 K/mm3 (130-400); RED BLOOD COUNT 3.54 M/mm3 (4.10-5.30); REDCELL DISTRIBUTION WIDTH-CV 17.8 % (11.5-14.5)
[2018-06-28 17:05] LABS: HEMATOCRIT 28.1 % (37.0-47.0); HEMOGLOBIN 8.8 g/dl (12.5-16.0); MEAN CORPUSCULAR HEMOGLOBIN 25 pg (27.0-31.0)
== END ==
LOC: ZCOL.LAB 16:53
PROVIDERS: Surgery Surgical Oncology
DX: C78.6 Secondary malignant neoplasm of retroperitoneum and peritoneum (principal)

== ENCOUNTER → 2018-07-12 | Outpatient (REF) | LOC: ZLAB.WCH 16:07 | DX: Z01.89 Encounter for other specified special examinations (principal) ==

== ENCOUNTER → 2018-07-20 | Outpatient (CLI) | payer MEDICARE ==
[2018-07-20 11:11] LABS: BASO # 0.1 (0.0-0.2); BASO % 0.7 % (0.0-2.0); EOS # 0.3 (0.0-0.7); EOS % 3.9 % (0-4.0); GRAN # 4.2 (1.4-6.5); GRAN % 47.3 % (42.2-75.2); HEMATOCRIT 25.6 % (37.0-47.0); HEMOGLOBIN 8.2 g/dl (12.5-16.0); LYMPH # 3.1 (1.2-3.4); LYMPH % 35.5 % (20.0-51.0); MEAN CELL VOLUME 79 fl (80.0-100.0); MEAN CORPUSCULAR HEMOGLOBIN 25 pg (27.0-31.0); MEAN CORPUSCULAR HGB CONC 32 g/dl (33.0-37.0); MEAN PLATELET VOLUME 10.5 fl (7.4-10.4); MONO # 1.1 (0.1-0.6); MONO % 12.4 % (1.7-9.3); PLATELET COUNT 616 K/mm3 (130-400); RED BLOOD COUNT 3.25 M/mm3 (4.10-5.30); REDCELL DISTRIBUTION WIDTH-CV 18.8 % (11.5-14.5)
[2018-07-20 11:31] LABS: ALBUMIN 2.5 gm/dL (3.5-5.0); BILIRUBIN,TOTAL 0.3 mg/dL (0.0-1.0); CREATININE, serum 0.59 mg/dL (0.52-1.25); MAGNESIUM 2.1 mg/dL (1.6-2.3); PHOSPHOROUS 3.8 mg/dL (2.5-4.5); POTASSIUM 4.3 mmol/L (3.4-5.0); TOTAL PROTEIN 6.1 gm/dL (6.4-8.2)
[2018-07-20 11:37] LABS: PRE ALBUMIN 7.5 mg/dL (17.6-36.0)
== END ==
LOC: ZCOL.LAB 10:54
PROVIDERS: Surgery Surgical Oncology
DX: C78.6 Secondary malignant neoplasm of retroperitoneum and peritoneum (principal)

== ENCOUNTER → 2018-07-26 | Outpatient (CLI) | payer MEDICARE ==
[2018-07-26 13:17] LABS: BASO % 0.3 % (0.0-2.0); EOS # 0.2 (0.0-0.7); GRAN # 5.5 (1.4-6.5); GRAN % 57.2 % (42.2-75.2); LYMPH # 2.9 (1.2-3.4); LYMPH % 29.8 % (20.0-51.0); MEAN CELL VOLUME 80 fl (80.0-100.0); MEAN CORPUSCULAR HGB CONC 31 g/dl (33.0-37.0); MONO % 10.5 % (1.7-9.3); PLATELET COUNT 720 K/mm3 (130-400); RED BLOOD COUNT 3.32 M/mm3 (4.10-5.30); REDCELL DISTRIBUTION WIDTH-CV 19.2 % (11.5-14.5)
[2018-07-26 13:18] LABS: HEMATOCRIT 26.6 % (37.0-47.0); HEMOGLOBIN 8.3 g/dl (12.5-16.0); MEAN CORPUSCULAR HEMOGLOBIN 25 pg (27.0-31.0)
[2018-07-26 13:29] LABS: ALBUMIN 2.7 gm/dL (3.5-5.0); BILIRUBIN,TOTAL 0.4 mg/dL (0.0-1.0); CALCIUM 8.1 mg/dL (8.4-10.2); CREATININE, serum 0.62 mg/dL (0.52-1.25); MAGNESIUM 2.1 mg/dL (1.6-2.3); PHOSPHOROUS 3.7 mg/dL (2.5-4.5); POTASSIUM 4.5 mmol/L (3.4-5.0); TOTAL PROTEIN 6.3 gm/dL (6.4-8.2)
[2018-07-26 13:36] LABS: PRE ALBUMIN 7.8 mg/dL (17.6-36.0)
[2018-07-28 13:25] LABS: FERRITIN 14 ng/mL (11-264); IRON,SERUM 33 ug/dL (35-150); TOTAL IRON BINDING CAPACITY 347 ug/dL (265-497)
== END ==
LOC: ZCOL.LAB 12:46
PROVIDERS: Surgery Surgical Oncology
DX: C78.6 Secondary malignant neoplasm of retroperitoneum and peritoneum (principal)

== ENCOUNTER → 2018-07-29 | Outpatient (CLI) | payer MEDICARE ==
[2018-07-29 15:35] LABS: BASO % 0.3 % (0.0-2.0); EOS # 0.1 (0.0-0.7); EOS % 1.3 % (0-4.0); GRAN # 5.6 (1.4-6.5); GRAN % 62.5 % (42.2-75.2); LYMPH # 2.4 (1.2-3.4); LYMPH % 26.4 % (20.0-51.0); MEAN CELL VOLUME 79 fl (80.0-100.0); MEAN CORPUSCULAR HGB CONC 32 g/dl (33.0-37.0); MEAN PLATELET VOLUME 9.4 fl (7.4-10.4); MONO # 0.8 (0.1-0.6); MONO % 9.3 % (1.7-9.3); PLATELET COUNT 835 K/mm3 (130-400); RED BLOOD COUNT 3.74 M/mm3 (4.10-5.30); REDCELL DISTRIBUTION WIDTH-CV 19.4 % (11.5-14.5)
[2018-07-29 15:39] LABS: HEMATOCRIT 29.4 % (37.0-47.0); HEMOGLOBIN 9.4 g/dl (12.5-16.0); MEAN CORPUSCULAR HEMOGLOBIN 25 pg (27.0-31.0)
[2018-07-29 15:48] LABS: ALBUMIN 3.5 gm/dL (3.5-5.0); BILIRUBIN,TOTAL 0.3 mg/dL (0.0-1.0); CALCIUM 8.4 mg/dL (8.4-10.2); CREATININE, serum 0.69 mg/dL (0.52-1.25); MAGNESIUM 2.1 mg/dL (1.6-2.3); PHOSPHOROUS 3.3 mg/dL (2.5-4.5); POTASSIUM 3.4 mmol/L (3.4-5.0)
== END ==
LOC: COL.LAB 15:10
PROVIDERS: Surgery Surgical Oncology
DX: C78.6 Secondary malignant neoplasm of retroperitoneum and peritoneum (principal)

== ENCOUNTER → 2018-08-02 | Outpatient (CLI) | payer MEDICARE ==
[2018-08-02 12:52] LABS: MEAN CELL VOLUME 79 fl (80.0-100.0); MEAN CORPUSCULAR HGB CONC 32 g/dl (33.0-37.0); PLATELET COUNT 767 K/mm3 (130-400); RED BLOOD COUNT 3.18 M/mm3 (4.10-5.30); REDCELL DISTRIBUTION WIDTH-CV 19.3 % (11.5-14.5)
[2018-08-02 12:59] LABS: HEMATOCRIT 25.1 % (37.0-47.0); HEMOGLOBIN 8.1 g/dl (12.5-16.0); MEAN CORPUSCULAR HEMOGLOBIN 25 pg (27.0-31.0)
[2018-08-02 13:13] LABS: ALBUMIN 2.5 gm/dL (3.5-5.0); BILIRUBIN,TOTAL 0.3 mg/dL (0.0-1.0); CALCIUM 7.6 mg/dL (8.4-10.2); CREATININE, serum 0.54 mg/dL (0.52-1.25); PHOSPHOROUS 3.1 mg/dL (2.5-4.5); POTASSIUM 3.9 mmol/L (3.4-5.0); TOTAL PROTEIN 5.9 gm/dL (6.4-8.2)
[2018-08-02 13:18] LABS: BAND 8 % (0-10); EOSINOPHIL 2 % (0-4); HYPOCHROMIA 1+; LYMPHOCYTE 12 % (20.0-51.0); NEUTROPHILS 66 % (42.0-75.2); PLATELET ESTIMATE INCREASED (NORMAL)
[2018-08-02 13:19] LABS: BURR CELLS 2+; TARGET CELLS 1+
[2018-08-02 13:20] LABS: OVALOCYTES 1+; POIKILOCYTOSIS 1+
[2018-08-02 13:21] LABS: MICROCYTOSIS 1+
[2018-08-02 13:34] LABS: PRE ALBUMIN 5.6 mg/dL (17.6-36.0)
== END ==
LOC: ZCOL.LAB 12:44
PROVIDERS: Surgery Surgical Oncology
DX: C78.6 Secondary malignant neoplasm of retroperitoneum and peritoneum (principal)

== ENCOUNTER → 2018-08-09 | Outpatient (CLI) | payer MEDICARE ==
[2018-08-09 16:00] LABS: BASO % 0.3 % (0.0-2.0); EOS # 0.2 (0.0-0.7); EOS % 2.2 % (0-4.0); GRAN # 4.4 (1.4-6.5); GRAN % 57.4 % (42.2-75.2); LYMPH # 2.1 (1.2-3.4); LYMPH % 27.7 % (20.0-51.0); MEAN CELL VOLUME 79 fl (80.0-100.0); MEAN CORPUSCULAR HGB CONC 32 g/dl (33.0-37.0); MEAN PLATELET VOLUME 10.2 fl (7.4-10.4); MONO # 0.9 (0.1-0.6); PLATELET COUNT 805 K/mm3 (130-400); RED BLOOD COUNT 3.32 M/mm3 (4.10-5.30); REDCELL DISTRIBUTION WIDTH-CV 19.1 % (11.5-14.5)
[2018-08-09 16:07] LABS: HEMOGLOBIN 8.3 g/dl (12.5-16.0); MEAN CORPUSCULAR HEMOGLOBIN 25 pg (27.0-31.0)
[2018-08-09 16:08] LABS: HEMATOCRIT 26.3 % (37.0-47.0)
[2018-08-09 18:31] LABS: PRE ALBUMIN 5.9 mg/dL (17.6-36.0)
[2018-08-09 18:54] LABS: ALBUMIN 2.7 gm/dL (3.5-5.0); BILIRUBIN,TOTAL 0.3 mg/dL (0.0-1.0); CALCIUM 7.9 mg/dL (8.4-10.2); CREATININE, serum 0.56 mg/dL (0.52-1.25); PHOSPHOROUS 3.3 mg/dL (2.5-4.5); POTASSIUM 4.2 mmol/L (3.4-5.0); TOTAL PROTEIN 6.4 gm/dL (6.4-8.2)
== END ==
LOC: ZCOL.LAB 15:52
PROVIDERS: Surgery Surgical Oncology
DX: C78.6 Secondary malignant neoplasm of retroperitoneum and peritoneum (principal)

== ENCOUNTER → 2018-08-16 | Outpatient (CLI) | payer MEDICARE ==
[2018-08-16 13:46] LABS: BASO # 0.1 (0.0-0.2); BASO % 0.7 % (0.0-2.0); EOS # 0.1 (0.0-0.7); EOS % 1.6 % (0-4.0); GRAN # 4.7 (1.4-6.5); GRAN % 54.1 % (42.2-75.2); LYMPH # 2.7 (1.2-3.4); LYMPH % 31.1 % (20.0-51.0); MEAN CELL VOLUME 79 fl (80.0-100.0); MEAN CORPUSCULAR HGB CONC 32 g/dl (33.0-37.0); MEAN PLATELET VOLUME 10.3 fl (7.4-10.4); MONO # 1.1 (0.1-0.6); MONO % 12.3 % (1.7-9.3); PLATELET COUNT 805 K/mm3 (130-400); REDCELL DISTRIBUTION WIDTH-CV 18.7 % (11.5-14.5)
[2018-08-16 13:48] LABS: HEMATOCRIT 26.2 % (37.0-47.0); HEMOGLOBIN 8.3 g/dl (12.5-16.0); MEAN CORPUSCULAR HEMOGLOBIN 25 pg (27.0-31.0)
[2018-08-16 13:53] LABS: ALBUMIN 2.5 gm/dL (3.5-5.0); BILIRUBIN,TOTAL 0.3 mg/dL (0.0-1.0); CALCIUM 7.8 mg/dL (8.4-10.2); CREATININE, serum 0.51 mg/dL (0.52-1.25); POTASSIUM 4.1 mmol/L (3.4-5.0); TOTAL PROTEIN 5.8 gm/dL (6.4-8.2)
[2018-08-16 14:00] LABS: PRE ALBUMIN 6.2 mg/dL (17.6-36.0)
== END ==
LOC: ZCOL.LAB 13:37
PROVIDERS: Surgery Surgical Oncology
DX: C78.6 Secondary malignant neoplasm of retroperitoneum and peritoneum (principal)

== ENCOUNTER → 2018-08-23 | Outpatient (CLI) | payer MEDICARE ==
[2018-08-23 12:14] LABS: BASO % 0.3 % (0.0-2.0); EOS # 0.2 (0.0-0.7); EOS % 1.8 % (0-4.0); GRAN # 5.8 (1.4-6.5); GRAN % 54.6 % (42.2-75.2); LYMPH # 3.2 (1.2-3.4); LYMPH % 29.6 % (20.0-51.0); MEAN CELL VOLUME 81 fl (80.0-100.0); MEAN CORPUSCULAR HGB CONC 32 g/dl (33.0-37.0); MEAN PLATELET VOLUME 10.7 fl (7.4-10.4); MONO # 1.4 (0.1-0.6); MONO % 13.5 % (1.7-9.3); PLATELET COUNT 726 K/mm3 (130-400); RED BLOOD COUNT 3.37 M/mm3 (4.10-5.30); REDCELL DISTRIBUTION WIDTH-CV 22.1 % (11.5-14.5)
[2018-08-23 12:17] LABS: ALBUMIN 2.4 gm/dL (3.5-5.0); BILIRUBIN,TOTAL 0.3 mg/dL (0.0-1.0); CALCIUM 7.8 mg/dL (8.4-10.2); CREATININE, serum 0.5 mg/dL (0.52-1.25); PHOSPHOROUS 3.2 mg/dL (2.5-4.5); TOTAL PROTEIN 5.9 gm/dL (6.4-8.2)
[2018-08-23 12:23] LABS: HEMATOCRIT 27.3 % (37.0-47.0); HEMOGLOBIN 8.6 g/dl (12.5-16.0); MEAN CORPUSCULAR HEMOGLOBIN 26 pg (27.0-31.0)
[2018-08-23 12:24] LABS: PRE ALBUMIN 5.4 mg/dL (17.6-36.0)
== END ==
LOC: ZCOL.LAB 11:40
PROVIDERS: Surgery Surgical Oncology
DX: C78.6 Secondary malignant neoplasm of retroperitoneum and peritoneum (principal)

== ENCOUNTER → 2018-08-30 | Outpatient (CLI) | payer MEDICARE ==
[2018-08-30 13:01] LABS: MEAN CELL VOLUME 84 fl (80.0-100.0); MEAN CORPUSCULAR HGB CONC 31 g/dl (33.0-37.0); MEAN PLATELET VOLUME 10.9 fl (7.4-10.4); PLATELET COUNT 594 K/mm3 (130-400); RED BLOOD COUNT 3.47 M/mm3 (4.10-5.30); REDCELL DISTRIBUTION WIDTH-CV 24.1 % (11.5-14.5)
[2018-08-30 13:03] LABS: ALBUMIN 2.4 gm/dL (3.5-5.0); BILIRUBIN,TOTAL 0.3 mg/dL (0.0-1.0); CALCIUM 7.8 mg/dL (8.4-10.2); CREATININE, serum 0.56 mg/dL (0.52-1.25); HEMATOCRIT 29.1 % (37.0-47.0); HEMOGLOBIN 9.1 g/dl (12.5-16.0); MEAN CORPUSCULAR HEMOGLOBIN 26 pg (27.0-31.0); POTASSIUM 4.2 mmol/L (3.4-5.0); TOTAL PROTEIN 5.7 gm/dL (6.4-8.2)
[2018-08-30 13:31] LABS: BAND 1 % (0-10); EOSINOPHIL 1 % (0-4); LYMPHOCYTE 34 % (20.0-51.0); NEUTROPHILS 59 % (42.0-75.2); PLATELET ESTIMATE INCREASED (NORMAL); TARGET CELLS 1+
[2018-08-30 13:32] LABS: ANISOCYTOSIS 3+; HYPOCHROMIA 2+; OVALOCYTES 1+; POIKILOCYTOSIS 1+
[2018-08-31 08:11] LABS: PATHOLOGY DIFF REVIEW OK
== END ==
LOC: ZCOL.LAB 12:23
PROVIDERS: Surgery Surgical Oncology
DX: C78.6 Secondary malignant neoplasm of retroperitoneum and peritoneum (principal)

== ENCOUNTER → 2018-09-06 | Outpatient (CLI) | payer MEDICARE ==
[2018-09-06 12:10] LABS: BASO # 0.1 (0.0-0.2); BASO % 0.7 % (0.0-2.0); EOS # 0.1 (0.0-0.7); EOS % 1.4 % (0-4.0); GRAN # 3.4 (1.4-6.5); GRAN % 39.4 % (42.2-75.2); LYMPH # 3.6 (1.2-3.4); LYMPH % 42.1 % (20.0-51.0); MEAN CELL VOLUME 85 fl (80.0-100.0); MEAN CORPUSCULAR HGB CONC 32 g/dl (33.0-37.0); MEAN PLATELET VOLUME 10.8 fl (7.4-10.4); MONO # 1.4 (0.1-0.6); MONO % 15.9 % (1.7-9.3); PLATELET COUNT 589 K/mm3 (130-400); REDCELL DISTRIBUTION WIDTH-CV 24.1 % (11.5-14.5)
[2018-09-06 12:11] LABS: HEMATOCRIT 29.7 % (37.0-47.0); HEMOGLOBIN 9.5 g/dl (12.5-16.0); MEAN CORPUSCULAR HEMOGLOBIN 27 pg (27.0-31.0)
[2018-09-06 12:16] LABS: ALBUMIN 2.6 gm/dL (3.5-5.0); BILIRUBIN,TOTAL 0.3 mg/dL (0.0-1.0); CALCIUM 7.8 mg/dL (8.4-10.2); CREATININE, serum 0.52 mg/dL (0.52-1.25); PHOSPHOROUS 3.5 mg/dL (2.5-4.5); POTASSIUM 4.2 mmol/L (3.4-5.0)
[2018-09-06 12:22] LABS: PRE ALBUMIN 7.5 mg/dL (17.6-36.0)
== END ==
LOC: ZCOL.LAB 11:59
PROVIDERS: Surgery Surgical Oncology
DX: C78.6 Secondary malignant neoplasm of retroperitoneum and peritoneum (principal)

== ENCOUNTER → 2018-09-13 | Outpatient (CLI) | payer MEDICARE ==
[2018-09-13 16:52] LABS: BASO % 0.5 % (0.0-2.0); EOS # 0.1 (0.0-0.7); EOS % 1.3 % (0-4.0); GRAN # 3.3 (1.4-6.5); GRAN % 39.9 % (42.2-75.2); LYMPH # 3.6 (1.2-3.4); LYMPH % 42.9 % (20.0-51.0); MEAN CELL VOLUME 86 fl (80.0-100.0); MEAN CORPUSCULAR HGB CONC 31 g/dl (33.0-37.0); MEAN PLATELET VOLUME 11.1 fl (7.4-10.4); MONO # 1.3 (0.1-0.6); MONO % 15.3 % (1.7-9.3); PLATELET COUNT 629 K/mm3 (130-400); RED BLOOD COUNT 3.61 M/mm3 (4.10-5.30)
[2018-09-13 17:12] LABS: ALBUMIN 2.5 gm/dL (3.5-5.0); BILIRUBIN,TOTAL 0.3 mg/dL (0.0-1.0); CREATININE, serum 0.55 mg/dL (0.52-1.25); MAGNESIUM 2.1 mg/dL (1.6-2.3); PHOSPHOROUS 3.8 mg/dL (2.5-4.5); POTASSIUM 4.6 mmol/L (3.4-5.0); TOTAL PROTEIN 6.1 gm/dL (6.4-8.2)
[2018-09-13 17:18] LABS: PRE ALBUMIN 6.8 mg/dL (17.6-36.0)
[2018-09-13 17:20] LABS: HEMATOCRIT 31.2 % (37.0-47.0); HEMOGLOBIN 9.7 g/dl (12.5-16.0); MEAN CORPUSCULAR HEMOGLOBIN 27 pg (27.0-31.0)
== END ==
LOC: ZCOL.LAB 16:12
PROVIDERS: Surgery Surgical Oncology
DX: C78.6 Secondary malignant neoplasm of retroperitoneum and peritoneum (principal)

== ENCOUNTER → 2018-09-20 | Outpatient (CLI) | payer MEDICARE ==
[2018-09-20 16:43] LABS: ALBUMIN 2.7 gm/dL (3.5-5.0); BILIRUBIN,TOTAL 0.3 mg/dL (0.0-1.0); CALCIUM 8.4 mg/dL (8.4-10.2); CREATININE, serum 0.55 mg/dL (0.52-1.25); MAGNESIUM 2.1 mg/dL (1.6-2.3); PHOSPHOROUS 3.4 mg/dL (2.5-4.5); POTASSIUM 3.9 mmol/L (3.4-5.0); TOTAL PROTEIN 6.4 gm/dL (6.4-8.2)
[2018-09-20 16:50] LABS: PRE ALBUMIN 6.9 mg/dL (17.6-36.0)
[2018-09-20 17:04] LABS: BASO % 0.3 % (0.0-2.0); EOS # 0.1 (0.0-0.7); EOS % 1.3 % (0-4.0); GRAN # 5.7 (1.4-6.5); GRAN % 56.5 % (42.2-75.2); HEMOGLOBIN 10.4 g/dl (12.5-16.0); LYMPH # 2.9 (1.2-3.4); LYMPH % 28.8 % (20.0-51.0); MEAN CELL VOLUME 88 fl (80.0-100.0); MEAN CORPUSCULAR HEMOGLOBIN 27 pg (27.0-31.0); MEAN CORPUSCULAR HGB CONC 31 g/dl (33.0-37.0); MEAN PLATELET VOLUME 11.2 fl (7.4-10.4); MONO # 1.3 (0.1-0.6); MONO % 12.7 % (1.7-9.3); PLATELET COUNT 661 K/mm3 (130-400); RED BLOOD COUNT 3.81 M/mm3 (4.10-5.30); REDCELL DISTRIBUTION WIDTH-CV 22.7 % (11.5-14.5)
[2018-09-20 17:11] LABS: HEMATOCRIT 33.4 % (37.0-47.0)
== END ==
LOC: ZCOL.LAB 15:47
PROVIDERS: Surgery Surgical Oncology
DX: C78.6 Secondary malignant neoplasm of retroperitoneum and peritoneum (principal)

== ENCOUNTER → 2018-09-27 | Outpatient (CLI) | payer MEDICARE ==
[2018-09-27 16:05] LABS: BASO % 0.3 % (0.0-2.0); EOS # 0.2 (0.0-0.7); EOS % 2.3 % (0-4.0); GRAN # 4.5 (1.4-6.5); GRAN % 46.3 % (42.2-75.2); HEMATOCRIT 31.1 % (37.0-47.0); HEMOGLOBIN 9.8 g/dl (12.5-16.0); LYMPH # 3.8 (1.2-3.4); LYMPH % 39.6 % (20.0-51.0); MEAN CELL VOLUME 87 fl (80.0-100.0); MEAN CORPUSCULAR HEMOGLOBIN 27 pg (27.0-31.0); MEAN CORPUSCULAR HGB CONC 32 g/dl (33.0-37.0); MEAN PLATELET VOLUME 11.3 fl (7.4-10.4); MONO # 1.1 (0.1-0.6); MONO % 11.3 % (1.7-9.3); PLATELET COUNT 501 K/mm3 (130-400); RED BLOOD COUNT 3.57 M/mm3 (4.10-5.30); REDCELL DISTRIBUTION WIDTH-CV 22.1 % (11.5-14.5)
[2018-09-27 16:13] LABS: ALBUMIN 2.3 gm/dL (3.5-5.0); BILIRUBIN,TOTAL 0.2 mg/dL (0.0-1.0); CALCIUM 7.9 mg/dL (8.4-10.2); CREATININE, serum 0.6 mg/dL (0.52-1.25); PHOSPHOROUS 3.4 mg/dL (2.5-4.5); POTASSIUM 3.8 mmol/L (3.4-5.0); TOTAL PROTEIN 5.8 gm/dL (6.4-8.2)
[2018-09-27 16:22] LABS: PRE ALBUMIN 6.1 mg/dL (17.6-36.0)
== END ==
LOC: ZCOL.LAB 15:36
PROVIDERS: Surgery Surgical Oncology
DX: C78.6 Secondary malignant neoplasm of retroperitoneum and peritoneum (principal)

== ENCOUNTER → 2018-10-04 | Outpatient (CLI) | payer MEDICARE ==
[2018-10-04 16:00] LABS: MEAN CELL VOLUME 87 fl (80.0-100.0); MEAN CORPUSCULAR HGB CONC 32 g/dl (33.0-37.0); MEAN PLATELET VOLUME 11.3 fl (7.4-10.4); PLATELET COUNT 604 K/mm3 (130-400); RED BLOOD COUNT 3.45 M/mm3 (4.10-5.30); REDCELL DISTRIBUTION WIDTH-CV 21.5 % (11.5-14.5)
[2018-10-04 16:14] LABS: ALBUMIN 2.4 gm/dL (3.5-5.0); BILIRUBIN,TOTAL 0.2 mg/dL (0.0-1.0); CALCIUM 7.7 mg/dL (8.4-10.2); CREATININE, serum 0.6 mg/dL (0.52-1.25); MAGNESIUM 1.9 mg/dL (1.6-2.3); PHOSPHOROUS 3.6 mg/dL (2.5-4.5); POTASSIUM 3.7 mmol/L (3.4-5.0); TOTAL PROTEIN 5.8 gm/dL (6.4-8.2)
[2018-10-04 16:21] LABS: PRE ALBUMIN 5.4 mg/dL (17.6-36.0)
[2018-10-04 16:24] LABS: HEMOGLOBIN 9.6 g/dl (12.5-16.0); MEAN CORPUSCULAR HEMOGLOBIN 28 pg (27.0-31.0)
[2018-10-04 16:28] LABS: BAND 5 % (0-10); LYMPHOCYTE 10 % (20.0-51.0); NEUTROPHILS 84 % (42.0-75.2); PLATELET ESTIMATE INCREASED (NORMAL); TARGET CELLS 2+
[2018-10-04 16:31] LABS: BURR CELLS 1+; HYPOCHROMIA 1+; SCHISTOCYTES 1+
[2018-10-04 16:32] LABS: ANISOCYTOSIS 1+
== END ==
LOC: ZCOL.LAB 15:22
PROVIDERS: Surgery Surgical Oncology
DX: C78.6 Secondary malignant neoplasm of retroperitoneum and peritoneum (principal)

== ENCOUNTER → 2018-10-11 | Outpatient (CLI) | payer MEDICARE ==
[2018-10-11 15:06] LABS: BASO # 0.1 (0.0-0.2); BASO % 0.7 % (0.0-2.0); EOS # 0.1 (0.0-0.7); EOS % 1.3 % (0-4.0); GRAN # 5.2 (1.4-6.5); GRAN % 48.6 % (42.2-75.2); LYMPH # 4.1 (1.2-3.4); LYMPH % 38.3 % (20.0-51.0); MEAN CELL VOLUME 86 fl (80.0-100.0); MEAN CORPUSCULAR HEMOGLOBIN 27 pg (27.0-31.0); MEAN CORPUSCULAR HGB CONC 32 g/dl (33.0-37.0); MEAN PLATELET VOLUME 11.4 fl (7.4-10.4); MONO # 1.2 (0.1-0.6); MONO % 10.8 % (1.7-9.3); PLATELET COUNT 735 K/mm3 (130-400); RED BLOOD COUNT 3.67 M/mm3 (4.10-5.30); REDCELL DISTRIBUTION WIDTH-CV 20.7 % (11.5-14.5)
[2018-10-11 15:10] LABS: HEMATOCRIT 31.7 % (37.0-47.0)
[2018-10-11 15:21] LABS: ALBUMIN 2.5 gm/dL (3.5-5.0); BILIRUBIN,TOTAL 0.3 mg/dL (0.0-1.0); CALCIUM 7.9 mg/dL (8.4-10.2); CREATININE, serum 0.56 mg/dL (0.52-1.25); PHOSPHOROUS 3.5 mg/dL (2.5-4.5); POTASSIUM 4.3 mmol/L (3.4-5.0); TOTAL PROTEIN 6.3 gm/dL (6.4-8.2)
== END ==
LOC: ZCOL.LAB 14:03
PROVIDERS: Surgery Surgical Oncology
DX: C78.6 Secondary malignant neoplasm of retroperitoneum and peritoneum (principal)

== ENCOUNTER → 2018-10-25 | Outpatient (CLI) | payer MEDICARE ==
[2018-10-25 15:36] LABS: ALBUMIN 2.5 gm/dL (3.5-5.0); BASO % 0.2 % (0.0-2.0); BILIRUBIN,TOTAL 0.3 mg/dL (0.0-1.0); CREATININE, serum 0.57 mg/dL (0.52-1.25); EOS # 0.1 (0.0-0.7); EOS % 0.5 % (0-4.0); GRAN # 9.6 (1.4-6.5); GRAN % 60.6 % (42.2-75.2); LYMPH # 3.9 (1.2-3.4); LYMPH % 24.8 % (20.0-51.0); MAGNESIUM 1.9 mg/dL (1.6-2.3); MEAN CELL VOLUME 85 fl (80.0-100.0); MEAN CORPUSCULAR HGB CONC 33 g/dl (33.0-37.0); MEAN PLATELET VOLUME 11.1 fl (7.4-10.4); MONO # 2.1 (0.1-0.6); MONO % 13.5 % (1.7-9.3); PHOSPHOROUS 3.4 mg/dL (2.5-4.5); PLATELET COUNT 657 K/mm3 (130-400); POTASSIUM 4.1 mmol/L (3.4-5.0); RED BLOOD COUNT 3.36 M/mm3 (4.10-5.30); REDCELL DISTRIBUTION WIDTH-CV 17.7 % (11.5-14.5); TOTAL PROTEIN 6.2 gm/dL (6.4-8.2)
[2018-10-25 15:38] LABS: HEMATOCRIT 28.5 % (37.0-47.0); HEMOGLOBIN 9.3 g/dl (12.5-16.0); MEAN CORPUSCULAR HEMOGLOBIN 28 pg (27.0-31.0)
[2018-10-25 15:43] LABS: PRE ALBUMIN 4.2 mg/dL (17.6-36.0)
== END ==
LOC: ZCOL.LAB 15:16
PROVIDERS: Surgery Surgical Oncology
DX: C78.6 Secondary malignant neoplasm of retroperitoneum and peritoneum (principal)

== ENCOUNTER 2018-11-01 13:39 | Emergency (ER) | payer MEDICARE ==
[~2018-11-01] VITALS: Ht 167.6 cm; Wt 66.8 kg
[~2018-11-01 13:39] MED LIST changes: -CORRECTIVE LAXAT5 MG PO; -FLEXERIL5 MG PO; -FLOVENT DI100 MCG/Ac IH; -GAS RELIEF80 MG PO; -K-DUR20 MEQ PO; -MIRALAX PA17 GM/Dose PO; -MORPHINE SULF2 MG/M1; -PEPCID 40INJ; -PHENERGAN25 MG RC; -REGLAN 10MG/11 MG/ML PO; -TPN ELECTROLYTE20 ML; -TRANSDERM-0.5 MG/21 TD; -WELLBUTRIN 75MG75 MG PO; -[UNRECOGNIZED DRUG - OTHER]
[2018-11-01 13:54] VITALS: TEMP 99.6
[2018-11-01 16:47] LABS: BASO % 0.2 % (0.0-2.0); EOS # 0.1 (0.0-0.7); EOS % 0.3 % (0-4.0); GRAN # 13.4 (1.4-6.5); GRAN % 74.3 % (42.2-75.2); LYMPH # 2.5 (1.2-3.4); LYMPH % 13.6 % (20.0-51.0); MEAN CELL VOLUME 82 fl (80.0-100.0); MEAN CORPUSCULAR HGB CONC 34 g/dl (33.0-37.0); MEAN PLATELET VOLUME 10.4 fl (7.4-10.4); PLATELET COUNT 702 K/mm3 (130-400); RED BLOOD COUNT 3.41 M/mm3 (4.10-5.30); REDCELL DISTRIBUTION WIDTH-CV 16.8 % (11.5-14.5)
[2018-11-01 16:50] LABS: HEMATOCRIT 28.1 % (37.0-47.0); HEMOGLOBIN 9.4 g/dl (12.5-16.0); MEAN CORPUSCULAR HEMOGLOBIN 28 pg (27.0-31.0)
[2018-11-01 17:03] LABS: ALBUMIN 2.6 gm/dL (3.5-5.0); BILIRUBIN,TOTAL 0.3 mg/dL (0.0-1.0); CALCIUM 7.6 mg/dL (8.4-10.2); CREATININE, serum 0.55 mg/dL (0.52-1.25); TOTAL PROTEIN 6.6 gm/dL (6.4-8.2)
[2018-11-01] MEDS ORDERED: FLOVENT DI100 MCG/Ac IH (17:14)
[2018-11-01] MEDS ORDERED: WELLBUTRIN 75MG75 MG PO (17:15)
[2018-11-01] MEDS ORDERED: PHENERGAN25 MG RC (17:15)
[2018-11-01] MEDS ORDERED: TRANSDERM-0.5 MG/21 TD (17:15)
[2018-11-01 17:16] LABS: C-REACTIVE PROTEIN 17.4 mg/dL (0.0-0.9)
[2018-11-01] MEDS ORDERED: FLEXERIL5 MG PO (17:17)
[2018-11-01] MEDS ORDERED: NORCO 325 MG-101 TAB PO (17:17)
[2018-11-01] MEDS ORDERED: MORPHINE SULF2 MG/M1 (17:18)
[2018-11-01] MEDS ORDERED: ZOFRAN INJ4 MG/2 ML IV (17:18)
[2018-11-01] MEDS ORDERED: REGLAN 10MG/11 MG/ML PO (17:19)
[2018-11-01] MEDS ORDERED: PEPCID 40INJ (17:19)
[2018-11-01] MEDS ORDERED: [UNRECOGNIZED DRUG - OTHER] (17:20)
[2018-11-01] MEDS ORDERED: MIRALAX PA17 GM/Dose PO (17:21)
[2018-11-01] MEDS ORDERED: TPN ELECTROLYTE20 ML (17:21)
[2018-11-01] MEDS ORDERED: CORRECTIVE LAXAT5 MG PO (17:22)
[2018-11-01] MEDS ORDERED: GAS RELIEF80 MG PO (17:22)
[2018-11-01 18:30] LABS: COLLECTION METHOD CLEAN CATCH
[2018-11-01 18:36] LABS: PH 6 (5-8); SQUAMOUS EPITHELIAL 0-2 /hpf; URINE APPEARANCE Clear; URINE BACTERIA None Seen /hpf; URINE BILIRUBIN Negative (NEGATIVE); URINE BLOOD Negative (NEGATIVE); URINE COLOR Yellow; URINE GLUCOSE Negative (NEGATIVE); URINE KETONE Negative (NEGATIVE); URINE LEUKOCYTE ESTERASE Negative (NEGATIVE); URINE NITRATE Negative (NEGATIVE); URINE PROTEIN(semi-quant) Negative (NEGATIVE); URINE RBC 0-2 /hpf; URINE UROBILINOGEN Negative (NEGATIVE)
[2018-11-01 18:58] LABS: TROPONIN-I 0.021 ng/mL (0.000-0.034)
[2018-11-01] MEDS ORDERED: LEVAQUIN 5500 MG/TA1 PO (19:31)
[2018-11-01] MEDS ORDERED: K-DUR20 MEQ PO (19:31)
[2018-11-01 19:50] VITALS: BP 141/66; PULSE 82
== END 2018-11-01 19:51 | disposition home or self-care (01) ==
LOC: COL.ER 13:39
PROVIDERS: Emergency Medicine
DX: J18.1 Lobar pneumonia, unspecified organism (principal); E87.6 Hypokalemia; Z86.718 Personal history of other venous thrombosis and embolism; Z79.01 Long term (current) use of anticoagulants; Z00-Z99 Factors influencing health status and contact with health services; Z79.51 Long term (current) use of inhaled steroids
CPT/HCPCS: J0696; J7030

== ENCOUNTER → 2018-11-01 | Outpatient (CLI) | payer MEDICARE ==
[~2018-11-01] MED LIST changes: +CORRECTIVE LAXAT5 MG PO; +FLEXERIL5 MG PO; +FLOVENT DI100 MCG/Ac IH; +GAS RELIEF80 MG PO; +K-DUR20 MEQ PO; +MIRALAX PA17 GM/Dose PO; +MORPHINE SULF2 MG/M1; +PEPCID 40INJ; +PHENERGAN25 MG RC; +REGLAN 10MG/11 MG/ML PO; +TPN ELECTROLYTE20 ML; +TRANSDERM-0.5 MG/21 TD; +WELLBUTRIN 75MG75 MG PO; +[UNRECOGNIZED DRUG - OTHER]
[2018-11-01 17:27] LABS: ALBUMIN 2.6 gm/dL (3.5-5.0); BILIRUBIN,TOTAL 0.3 mg/dL (0.0-1.0); CALCIUM 7.6 mg/dL (8.4-10.2); CREATININE, serum 0.55 mg/dL (0.52-1.25); TOTAL PROTEIN 6.6 gm/dL (6.4-8.2)
[2018-11-01 17:29] LABS: BASO % 0.2 % (0.0-2.0); EOS # 0.1 (0.0-0.7); EOS % 0.3 % (0-4.0); GRAN # 13.4 (1.4-6.5); GRAN % 74.3 % (42.2-75.2); LYMPH # 2.5 (1.2-3.4); LYMPH % 13.6 % (20.0-51.0); MEAN CELL VOLUME 82 fl (80.0-100.0); MEAN CORPUSCULAR HGB CONC 34 g/dl (33.0-37.0); MEAN PLATELET VOLUME 10.4 fl (7.4-10.4); PLATELET COUNT 702 K/mm3 (130-400); RED BLOOD COUNT 3.41 M/mm3 (4.10-5.30); REDCELL DISTRIBUTION WIDTH-CV 16.8 % (11.5-14.5)
[2018-11-01 17:30] LABS: HEMATOCRIT 28.1 % (37.0-47.0); HEMOGLOBIN 9.4 g/dl (12.5-16.0); MEAN CORPUSCULAR HEMOGLOBIN 28 pg (27.0-31.0)
[2018-11-01 17:35] LABS: MAGNESIUM 2.1 mg/dL (1.6-2.3); PHOSPHOROUS 2.9 mg/dL (2.5-4.5)
[2018-11-01 17:42] LABS: PRE ALBUMIN 3.2 mg/dL (17.6-36.0)
== END ==
LOC: ZCOL.LAB 17:10
PROVIDERS: Surgery Surgical Oncology
DX: C78.6 Secondary malignant neoplasm of retroperitoneum and peritoneum (principal)

== ENCOUNTER 2018-11-03 09:42 | Emergency (ER) | payer MEDICARE ==
[~2018-11-03] VITALS: Ht 167.6 cm; Wt 66.8 kg
[~2018-11-03 09:42] MED LIST changes: +CORRECTIVE LAXAT5 MG PO; +FLEXERIL5 MG PO; +FLOVENT DI100 MCG/Ac IH; +GAS RELIEF80 MG PO; +K-DUR20 MEQ PO; +MIRALAX PA17 GM/Dose PO; +MORPHINE SULF2 MG/M1; +PEPCID 40INJ; +PHENERGAN25 MG RC; +REGLAN 10MG/11 MG/ML PO; +TPN ELECTROLYTE20 ML; +TRANSDERM-0.5 MG/21 TD; +WELLBUTRIN 75MG75 MG PO; +[UNRECOGNIZED DRUG - OTHER]
[2018-11-03 09:51] VITALS: TEMP 98.6
[2018-11-03 10:54] LABS: MEAN CELL VOLUME 84 fl (80.0-100.0); MEAN CORPUSCULAR HGB CONC 32 g/dl (33.0-37.0); MEAN PLATELET VOLUME 10.6 fl (7.4-10.4); PLATELET COUNT 733 K/mm3 (130-400); RED BLOOD COUNT 3.33 M/mm3 (4.10-5.30); REDCELL DISTRIBUTION WIDTH-CV 16.9 % (11.5-14.5)
[2018-11-03 10:55] LABS: HEMATOCRIT 27.8 % (37.0-47.0); MEAN CORPUSCULAR HEMOGLOBIN 27 pg (27.0-31.0)
[2018-11-03 11:05] LABS: ALBUMIN 2.6 gm/dL (3.5-5.0); BILIRUBIN,TOTAL 0.3 mg/dL (0.0-1.0); CALCIUM 7.6 mg/dL (8.4-10.2); CREATININE, serum 0.5 mg/dL (0.52-1.25); POTASSIUM 3.3 mmol/L (3.4-5.0); TOTAL PROTEIN 6.3 gm/dL (6.4-8.2)
[2018-11-03 11:13] LABS: LYMPHOCYTE 10 % (20.0-51.0); NEUTROPHILS 87 % (42.0-75.2); PLATELET ESTIMATE INCREASED (NORMAL)
[2018-11-03 11:14] LABS: ANISOCYTOSIS 1+; TARGET CELLS 2+
[2018-11-03 11:21] LABS: C-REACTIVE PROTEIN 17.4 mg/dL (0.0-0.9)
[2018-11-03 12:07] LABS: COLLECTION METHOD CLEAN CATCH
[2018-11-03 12:23] LABS: PH 6 (5-8); SQUAMOUS EPITHELIAL None Seen /hpf; URINE APPEARANCE Clear; URINE BACTERIA None Seen /hpf; URINE BILIRUBIN Negative (NEGATIVE); URINE BLOOD Negative (NEGATIVE); URINE COLOR Yellow; URINE GLUCOSE 2+ (NEGATIVE); URINE KETONE Negative (NEGATIVE); URINE LEUKOCYTE ESTERASE Negative (NEGATIVE); URINE NITRATE Negative (NEGATIVE); URINE PROTEIN(semi-quant) Negative (NEGATIVE); URINE RBC None Seen /hpf; URINE UROBILINOGEN Negative (NEGATIVE)
[2018-11-03 13:18] VITALS: BP 132/65; PULSE 88
== END 2018-11-03 13:24 | disposition home or self-care (01) ==
LOC: COL.ER 09:42
PROVIDERS: Family Medicine
DX: J18.1 Lobar pneumonia, unspecified organism (principal); C7A.020 Malignant carcinoid tumor of the appendix; C7B.09 Secondary carcinoid tumors of other sites; Z79.51 Long term (current) use of inhaled steroids
CPT/HCPCS: J0696; J2405; J7030